=== PATIENT | female | born 1945 | race Caucasian/White ===

== ENCOUNTER 2024-07-23 21:29 | Inpatient (IN) | payer MEDICARE, MEDICAID, SELFPAY ==
[2024-07-23] VITALS (8 sets, daily range): BP systolic 95–105; BP diastolic 64–80; PULSE 134–173; RESP 22–39; TEMP 36.5; O2SAT 92–99
--- NOTE | 2024-07-23 21:46 | XR_ITS ---
Examination: AP chest single view TECHNIQUE: AP portable semiupright chest single view Exam date and time: July 23, 1999 2510 0 5:00 PM Comparison August 11, 2023 INDICATIONS: SOB today. FINDINGS: Significant pneumonia left base with left pleural fluid No significant cardiac enlargement Prominent osteopenia Pleural scarring at the apices IMPRESSION: Significant left base pneumonia
--- NOTE | 2024-07-23 22:05 | EDNOTE_ITS ---
ED SOB =RME/HPI General Chief Complaint: Shortness of Breath/Dyspnea Stated Complaint: LOW O2 STATS Time Seen by Provider: 07/23/24 22:14 Arrival date/time: 07/23/24 21:29 RME / HPI RME / HPI Narrative: Patient is a 79-year-old female with past medical history of hypertension, GI bleed secondary to [place] tear, GERD, alcohol use disorder, unspecified psych disorder was BIBA from [facility] to the ED for a chief com plaint of low oxygen saturation and worsening cough over last few days. Per EMS, patient was sent over after she was found to be satting at 88% room air. EMS notes the patient was recently diagnosed with a left pleural effusion and is not compliant with her oxygen therapy. For EMS patient was swatting and refusing vitals check. Per POLST, patient is a Full Code with resuscitative measures but selective treatment. CXR from [facility] on 07/17/2024 showed Ill defined opacity in the right lower lobe with associated effusion. The heart is mildly enlarged. Great vessels are within normal limits in size. No acute osseous abnormality. No significant pneumothorax seen. Patient was prescribed 7 day course of levofloxacin, currently on Day 6. On arrival to ED HR was recorded 190s on the monitor, EKG shows afib with RvR. Per facility patient is at baseline mental status. When asked of any complaints patient states I'm alright and denies pain. She reports mild shortness of breath. Denies cough, chest pain, fever, chills, sweats. Denies nausea, vomiting, diarrhea, or any other symptoms at this time. Denies smoking or drinking, last alcohol drink a few months ago. Related Data Previous Rx's ?Medication ?Instructions ?Recorded amlodipine 5 mg tablet 5 mg PO QDAY #30 tabs sennosides 8.6 mg capsule (senna) 8.6 mg PO BID PRN co nstipation #60 08/18/23 caps Allergies Allergy/AdvReac Type Severity Reaction Status Date / Time chlorpromazine AdvReac Mild SLURRED Verified 01/24/22 13:27 SPEECH Review of Systems Review of Systems Systems Reviewed: All systems reviewed, normal except as documented Past Medical History Past Medical History NEUROLOGIC: Negative Neurological Disorders CARDIAC: Negative Cardiac Disorders or Congestive Heart Failure RESPIRATORY: Negative Chronic Obstructive Pulmonary Disease (COPD) GASTROINTESTINAL: Negative Gastrointestinal Disorders GENITOURINARY: Negative Genitourinary Disorders or Renal Disease MUSCULOSKELETAL: Negative Musculoskeletal Disorders ENDOCRINE: Negative Diabetes Mellitus Type 1 or Diabetes Mellitus Type 2 HEMATOLOGIC: Negative Blood Disorders Social History SMOKING STATUS: Unknown if ever smoked SECOND HAND EXPOSURE: Yes Past Medical History Comments PMH COMMENT: Past Medical History: Hypertension, GI bleed secondary to [place] tear, GERD, alcohol use disorder, unspecified psych disorder Family History: Unknown family history Surgical History: Unknown surgical history Social History: Denies smoking or tobacco use, former alcohol use last drink several months ago, denies recreational drug use Current Medications: Metoprolol tartrate 25 mg BID, amlodipine 5 mg qday, buspirone 15 mg BID, levofloxacin 500 mg (07/18/2024-07/25/2024), acetaminophen 325 mg prn, sennosides 8.6 mg prn, milk of magnesia 30 ml prn, dulcolax 10 mg prn, enema prn, multivitamin qday (Source: [facility] medication list) Allergies: Chlorpromazine - slurred speech ED Exam Narrative Physical exam: Physical Exam General: Elderly thin woman. Awake and in mild distress. Limited responses and compliance to evaluation. HEENT: Normocephalic, atraumatic, mucous membranes moist. Angioma-like growths on the right eyelid. Heart: Tachycardic rate and irregularly irregular rhythm, no murmurs. Lungs: Lower lobe rhonchi L>R. Abdomen: Soft, nondistended, nontender, positive bowel sounds. ?No guarding or rebound tenderness. Neurologic: Alert and oriented x3, no gross neurological deficit, and patient able to move all 4 extremities. Extremities: No edema. Skin: No rash or ecchymoses. Course Course Course Narrative: 22:00 Patient seen at bedside and received report from EMS. HR on monitor 190s. Orders placed for IV insertion. EKG #1 shows atrial fibrillation with rapid ventricular response at a rate of 194. Diltiazem 15 mg IV x1 ordered. 22:45 Evaluation after diltiazem push. HR in the 140-150s. BP stable 105/76. Pt getting flu, covid, rsv swab. 23:07 COVID and flu swabs are negative. HR remains in the 140s, will start diltiazem drip at 5 mg/hr. 00:50 Rate still 140s, diltiazem drip increased to 10 mg/hr. 04:00 Rate is in the 110s. CTA shows no acute PEs per my read, pending official interpretation. Quality Measures none Orders Category Date Time Status Apply Pacer Pads NOW Care 07/23/24 22:07 Completed Bedside COVID-19 Antigen Test NOW Care 07/23/24 21:47 Active Bedside Influenza A&B Antigen Test NOW Care 07/23/24 21:47 Completed COVID-19 Screening Questionnaire NOW Care 07/24/24 04:[address] Screening NOW Care 07/24/24 02:54 Active Shop Teacher STAT Care 07/23/24 22:07 Active Continuous Pulse Oximetry STAT Care 07/23/24 22:07 Completed Decision to Admit X1 Care 07/24/24 04:16 Active EKG (ED ONLY) *Do not use* NOW Care 07/23/24 21:46 Completed Insert IV NOW Care 07/23/24 22:07 Active Strict Intake and Output Routine Care 07/23/24 22:[address] angio chest Stat Exams 07/24/24 02:53 Taken EKG (ED Only) Stat Exams 07/23/24 21:46 Ordered XR chest 1V portable Stat Exams 07/23/24 21:46 Completed B-Type Natriuretic Peptide Stat Lab 07/23/24 22:15 Completed Blood Culture (Lab) Stat Lab 07/24/24 00:00 Received CBC Stat Lab 07/23/24 22:15 Completed Comprehensive Metabolic Panel Stat Lab 07/23/24 22:15 Completed Magnesium Stat Lab 07/23/24 22:15 Completed Partial Thromboplastin Time Stat Lab 07/23/24 22:15 Completed Phosphorous Stat Lab 07/23/24 22:15 Completed Procalcitonin Stat Lab 07/23/24 22:15 Completed Prothrombin Time with INR Stat Lab 07/23/24 22:15 Completed RSV [Respiratory Syncytial Virus Ag] Stat Lab 07/23/24 23:17 Completed Troponin I Routine Lab 07/24/24 05:00 Ordered Troponin I Stat Lab 07/23/24 22:15 Completed Urinalysis Stat Lab 07/24/24 04:10 Completed DILTIAZEM in D5W 125 MG Med 07/23/24 22:57 Active 125 mg in 125 ml IV 5 mg/hr Diltiazem Inj [Cardizem Inj] Med 07/23/24 23:20 Discontinued 125 mg IV .STK-MED ONE Diltiazem Inj [Cardizem Inj] Med 07/23/24 22:07 Discontinued 15 mg IV X1 ONE Magnesium Sulfate 2 GM Ivpb [Magnesium Sulfate Ivpb] Med 07/24/24 01:04 Discontinued 2 gm in 50 ml IV X1 Potassium Chloride [K-Dur] Med 07/24/24 01:03 Discontinued 40 meq PO X1 ONE Sodium Chloride 0.9% 1000 ml [Ns] 1,000 ml Med 07/24/24 01:02 Discontinued IV 999 mls/hr cefTRIAXone/D5w 1gm IV premix [Rocephin/D5w 1gm IV Med 07/24/24 02:13 Disconti nued premix] 50 ml IV X1 Oxygen Delivery PRN RT 07/23/24 22:07 Active Reevaluation(s) Reevaluation #1: Improve heart rate to 129 Time: 05:43 Vital Signs Vital signs: Vital Signs Temperature 97.7 F 07/23/24 21:44 Pulse Rate 166 H 07/23/24 21:44 Respiratory Rate 22 H 07/23/24 21:44 Pulse Oximetry (%) 92 L 07/23/24 21:44 Oxygen Delivery Method Room Air 07/23/24 21:44 Shortness of Breath / Dyspnea MDM Narrative MDM Narrative:: CXR from [facility] on 07/17/2024 showed Ill defined opacity in the right lower lobe with associated effusion. The heart is mildly enlarged. Great vessels are within normal limits in size. No acute osseous abnormality. No significant pneumothorax seen. Patient was prescribed 7 day course of levofloxacin, currently on Day 6. Ordered CTA chest to rule out any PE and also visualize pulmonary pena in the setting of pleural effusion seen on CXR. Sepsis: Was called at 5:39 AM. On arrival patient has tachycardia, increased respiratory rate, however she has increased BNP with pleural effusion and likely early CHF. The patient is given some IV fluids here but not the full 30 mix/kg. Patient is given 1 L of IV fluids. Sepsis reevaluation: Patient heart rate is improved. Blood pressure improved to 129. Patient afebrile at 98.5 and 100% on room 5 L. Patient data External records reviewed:: [facility] previous records, EMS form and Jail records Clinical information provided by:: EMS Social determinants that could affect healthcare access:: housing (SNF patient) Patient has the following chronic illnesses:: GERD How is presenting disease/condition affected by chronic disease/condition?: uneffected by Evaluation data The following diagnostics were reviewed and interpreted by me:: lab results, radiology exam(s) and EKG tracing(s) Lab and/or radiology exams considered but not ordered:: none Interpretation Summary: CTA interpreted by me: No pulmonary embolism, moderate left and mild right pl eural effusion. Medications / Prescriptions Medications or Prescriptions considered but not ordered:: none Medication administrations:: Medication Administration History Acetaminophen (Acetaminophen 325 Mg Tablet) 650 mg PO Q6H PRN PRN Reason: Fever >101.5 Stop: 08/23/24 04:50 Acetaminophen (Acetaminophen 325 Mg Tablet) 650 mg PO Q6H PRN PRN Reason: PAIN SCALE 1-3 (mild Stop: 08/23/24 04:50 Albuterol/Ipratropium (Albuterol/Ipratropium (Duoneb) Rt Ester 3 Ml Nebu) 3 ml INH Q4HRRT JOSE Stop: 08/23/24 06:59 Buspirone HCl (Buspirone Hcl 5 Mg Tablet) 15 mg PO BID JOSE Stop: 08/23/24 08:59 Heparin Sodium (Porcine) (Heparin Sod Inj 5000 Unit/Ml Vial) 5,000 unit SC Q8HR JOSE Stop: 08/07/24 05:59 Diltiazem HCl (Diltiazem In D5w 125 Mg) 125 mg in 125 mls @ 5 mls/hr IV .Q24H JOSE Stop: 08/22/24 22:56 Last Infusion: 07/24/24 00:52 Dose: 10 mg/hr, 10 mls/hr Documented By: Admin: 07/23/24 23:37 Dose: 5 mg/hr, 5 mls/hr Documented By: GOSIA Comments: 125 mg diltiazem into 100cc d5 Piperacillin Sod/Tazobactam (Sod 4.5 gm/ Sodium Chloride) 100 mls @ 200 mls/hr IV Q6HR JOSE Stop: 07/31/24 05:00 Piperacillin Sod/Tazobactam (Sod 4.5 gm/ Sodium Chloride) 100 mls @ 200 mls/hr IV X1 ONE Stop: 07/24/24 05:44 Ondansetron HCl (Ondansetron Inj 2 Mg/Ml Inj 2 Ml) 4 mg IV Q6H PRN; Protocol PRN Reason: NAUSEA OR VOMITING Stop: 08/23/24 04:50 Pantoprazole Sodium (Pantoprazole Inj 40 Mg Vial) 40 mg IVP QDAY JOSE Stop: 08/23/24 08:59 Pharmacy Consult (Vancomycin Pharmacy To Dose 1 Each Each) 1 each IV QDAY JOSE Stop: 08/23/24 08:59 Sennosides (Senna Tablet) 1 tab PO QDAY JOSE; Protocol Stop: 08/23/24 08:59 Discontinued Medications Diltiazem HCl (Diltiazem Inj 5 Mg/Ml Vial 5 Ml) 15 mg IV X1 ONE Stop: 07/23/24 22:08 Last Admin: 07/23/24 22:26 Dose: 15 mg Documented By: LETI Diltiazem HCl (Diltiazem Inj 5 Mg/Ml Vial 25 Ml) Confirm Administered Dose 125 mg IV .STK-MED ONE Stop: 07/23/24 23:21 Last Admin: 07/24/24 00:18 Dose: Not Given Documented By: LETI Non-Admin Reason: Override Medication Sodium Chloride (Ns) 1,000 mls @ 999 mls/hr IV .Q1H1M ONE Stop: 07/24/24 02:02 Last Infusion: 07/24/24 02:30 Dose: Infused Documented By: Admin: 07/24/24 01:15 Dose: 999 mls/hr Documented By: KG Magnesium Sulfate (Magnesium Sulfate Ivpb) 2 gm in 50 mls @ 25 mls/hr IV X1 ONE Stop: 07/24/24 03:03 Last Infusion: 07/24/24 03:50 Dose: Infused Documented By: Admin: 07/24/24 01:17 Dose: 25 mls/hr Documented By: KG Ceftriaxone Sodium/Dextrose (Rocephin/D5w 1gm Iv Premix) 50 mls @ 100 mls/hr IV X1 ONE Stop: 07/24/24 02:42 Last Infusion: 07/24/24 03:30 Dose: Infused Documented By: Admin: 07/24/24 02:55 Dose: 100 mls/hr Documented By: GOSIA Potassium Chloride (Potassium Chloride 20 Meq Tabcr) 40 meq PO X1 ONE Stop: 07/24/24 01:04 Last Admin: 07/24/24 01:14 Dose: 40 meq Documented By: KG Sodium Chloride (Sodium Chloride Rt 10% 15 Ml Nebu) 5 ml INH X1 ONE Stop: 07/24/24 04:57 Last Admin: 07/24/24 05:18 Dose: 5 ml Documented By: PAR ^ Consultations Consultation(s) initiated? (list below): No Consultation #1 (Physician, Specialty, Details): Internal resident , reviewed labs, management, workup and agrees to admit the patient. Diagnosis Shortness of Breath Differential Diagnosis: community acquired pneumonia Most likely diagnosis given after review of the tests above:: afib with RvR in the setting of pulmonary disease, community acquired pneumonia, left pleural effusion Admission Indicated Admission indicated?: indicated Explain why admission is indicated or not indicated:: Afib with RvR and left pleural effusion secondary to pneumonia Admission Request Was there a request for admission?: Yes Admission Attestation Admission request attestation: Discussed case with [] from Hospitalist service regarding admission. Discussed patients ED course, exam findings, labs, and radiology results. The Hospitalist [agrees,declines] to accept the patient for admission. Disposition Plan Disposition Plan: Admit Critical Care Time Critical Care Time Total Critical Care Time (min.): 45 Attestation: This patient required the highest level of my preparedness for sudden and emergent intervention. I provided critical care services, which included ordering, reviewing, and interpreting of laboratory studies in real time. Determining immediate treatments, planning for future treatments and observing response to therapy. Further diagnostic tests and treatments were made based on laboratory studies and response to therapy. I coordinated care with various consultants. This critical care time is separate from any other billable procedures or interventions. Discharge Plan Plan Patient Disposition: Admit Acute Care w/in Hospital Patient condition on transfer: Stable Problem List Clinical Impression: Community acquired pneumonia, Pleural effusion on left, Atrial fibrillation with RVR, Sepsis Attestation MD Attestation I was present for the history and physical exam and management with plan with the resident. Labs and radiographs are reviewed. Patient did meet criteria for sepsis secondary to elevated white count, heart rate elevation and increased respiratory rate. Procalcitonin is negative. Will add on lactic acid. Otherwise urinalysis is negative.
--- NOTE | 2024-07-23 22:06 | PD.EDRME ---
Rapid Medical Screening Exam E Arrival date/time: 07/23/24 21:29 79-year-old female with a history of alcohol use disorder and GI bleeds presents to the emergency room with a chief complaint of hypoxia, and generalized weakness. Per EMS the patient was 86% on room air at her facility. I have greeted and performed a focused initial assessment of this patient. A comprehensive ED assessment and evaluation of the patient, analysis of all test results, and completion of the medical decision making process will be conducted by additional ED providers. Chief Complaint: Shortness of Breath/Dyspnea Time Seen by Provider: 07/23/24 22:14 Vital signs: Vital Signs Temperature 97.7 F 07/23/24 21:44 Pulse Rate 166 H 07/23/24 21:44 Respiratory Rate 22 H 07/23/24 21:44 Pulse Oximetry (%) 92 L 07/23/24 21:44 Oxygen Delivery Method Room Air 07/23/24 21:44 Vital signs reviewed by provider: Yes
[2024-07-23] MEDS: DILTIAZEM INJ 5 MG/ML VIAL 5 ML 15 MG IV (22:26)
[2024-07-23 22:33] LABS: Basophils # (Auto) 0.1 Thou/mm3 (0.0-0.2); Basophils % (Auto) 0 % (0-2.5); Eosinophils % (Auto) 0 % (0-10); Hematocrit 47.3 % (36.0-46.0); Hemoglobin 16.3 g/dL (12.0-16.0); Immature Granulocytes % (Auto) 1 % (0-0); Immature Granulocytes Auto 0.16 Thou/mm3 (0.00-0.00); Lymphocytes # (Auto) 1.9 Thou/mm3 (1.0-4.8); Lymphocytes % (Auto) 12 % (10-50); Mean Corpuscular HGB Conc 34.5 g/dl (31.0-37.0); Mean Corpuscular Hemoglobin 29.7 pg (25.0-35.0); Mean Corpuscular Volume 86 fL (80-100); Monocytes # (Auto) 1.3 Thou/mm3 (0.0-0.8); Monocytes % (Auto) 8 % (0-12); Neutrophils # (Auto) 12.3 Thou/mm3 (1.8-7.7); Neutrophils % (Auto) 78 % (37-80); Nucleated Red Blood Cell % 0 /100 WBC (0); Platelet Count 460 Thou/mm3 (140-440); RDW Standard Deviation 41.5 fL (36.4-46.3); Red Blood Count 5.49 Miln/mm3 (4.00-5.20); White Blood Count 15.8 Thou/mm3 (3.6-11.0)
[2024-07-23 22:44] LABS: B-Type Natriuretic Peptide 371 pg/mL (0-100)
[2024-07-23 22:58] LABS: INR 1.2 (0.9-1.3); Partial Thromboplastin Time 26.4 Seconds (22.0-36.0); Prothrombin Time 13.2 Seconds (9.0-12.2)
[2024-07-23 23:04] LABS: Alanine Aminotransferase 24 U/L (10-49); Albumin, Serum 4.4 gm/dL (3.4-4.8); Albumin/Globulin Ratio 1.4 (1.2-2.2); Alkaline Phosphatase 90 U/L (46-116); Anion Gap 12 (7-16); Aspartate Amino Transferase 38 U/L (0-34); BUN/Creatinine Ratio 23 Ratio (12-20); Bilirubin,Total 0.9 mg/dL (0.3-1.2); Blood Urea Nitrogen 18 mg/dL (9-23); Calcium 9.9 mg/dL (8.3-10.6); Calcium (Corrected) 9.9 mg/dL (8.5-10.1); Carbon Dioxide 24.8 mMol/L (20.0-31.0); Chloride 102 mMol/L (98-107); Creatinine (Component) 0.8 mg/dL (0.6-1.3); Globulin 3.1 gm/dL (2.3-3.5); Glucose 196 mg/dL (74-106); Magnesium 1.8 mg/dL (1.6-2.6); Osmolality,Calculated 284 (275-295); Phosphorous 2.8 mg/dL (2.4-5.1); Potassium 3.4 mMol/L (3.4-5.1); Sodium 139 mMol/L (136-145); Total Protein 7.5 gm/dL (5.7-8.2); eGFR > 60 See Note
[2024-07-23 23:10] LABS: Troponin I 0.768 ng/mL (0.0-0.045)
[2024-07-23 23:32] LABS: Procalcitonin 0.06 ng/ml (0.0-0.49)
[2024-07-23] MEDS: DILTIAZEM in D5W 125 MG 125 MG/125 ML BAG IV (23:37)
[2024-07-24] VITALS (18 sets, daily range): BP systolic 93–125; BP diastolic 61–86; PULSE 84–142; RESP 18–97; TEMP 36.2–36.9; O2SAT 92–100; BMI 18.5; BMI 23.8
[2024-07-24 00:26] LABS: Respiratory Syncytial Virus Ag Negative (Negative)
[2024-07-24] MEDS: POTASSIUM CHLORIDE 20 mEq TABCR 40 MEQ PO (01:14)
[2024-07-24] MEDS: SODIUM CHLORIDE 0.9% 1000 ML 1,000 ML 999 ML IV (01:15)
[2024-07-24] MEDS: Magnesium Sulfate 2 GM Ivpb 2 GM/50 ML BAG IV (01:17)
--- NOTE | 2024-07-24 02:53 | XR_ITS ---
Examination: CTA chest with intravenous contrast 2-D reconstructions 3-D reconstructions, vascular Date and time of exam: July 24, 2024 at 0338 hours INDICATIONS: Onset hypoxia, tachycardia, tachypnea chest pain today, clinical diagnosis pulmonary embolus CTDI: vol (mGy) 18.48 DLP: (mGycm) 345 Technique: Multiple axial sections of the thorax have been obtained. 3 mm slice thickness, from below the hemidiaphragms to above the apices of the lungs. Mediastinal and lung density settings have been obtained. 2-D sagittal and coronal reconstructions. 3-D angiographic renderings, 3-D volume renderings, 3D post processing, vascular maximum intensity projections obtained. Contrast administered is 100 cc Isovue-370 intravenous. Low dose protocols were performed. One or more of the following dose reduction techniques were used; automated exposure control, adjustment of the mA and/or KV according to patient size, use of iterative reconstruction technique. Findings: Thoracic aortic calcification with no aneurysmal dilatation Pulmonary artery segments are not enlarged No pulmonary artery emboli Significant vascular congestion Mild pneumonia left base with atelectasis Moderate left and mild right pleural fluid Calcified granuloma in the right middle lobe Mild to moderate enlargement cardiac contour Liver is irregular in contour Splenic calcifications No pancreatic mass IMPRESSION: Negative for pulmonary artery emboli. Mild heart failure Mild pneumonia left base Moderate left mild right pleural fluid
[2024-07-24] MEDS: cefTRIAXone/D5w 1gm IV premix 50 ML IV (02:55)
--- NOTE | 2024-07-24 04:01 | PC.NURSE ---
Pt taken and brought back from ct
[2024-07-24 04:25] LABS: Collection Type, Urine Clean Catch
[2024-07-24 04:33] LABS: Bilirubin,Urine Negative (Negative); Blood,Urine Negative (Negative); Clarity,Urine Clear (Clear/Hazy); Color,Urine Yellow (Lt Yel-Yel); Glucose, Urine Negative (Negative); Hyaline Casts,Urine < 1 /hpf (0-1); Ketones,Urine Negative (Negative); Leukocyte Esterase,Urine Negative (Negative); Nitrite,Urine Negative (Negative); Protein,Urine Trace (Neg - Trace); RBC,Urine < 1 /hpf (0-3); Specific Gravity,Urine 1.027 (1.001-1.035); Squamous Epithelial Cell,Urine < 1 /hpf (0-5); Urobilinogen,Urine Negative mg/dL (0.0-1.0); WBC,Urine 1 /hpf (0-5)
--- NOTE | 2024-07-24 04:46 | PRELIM_ITS ---
CT angiogram of the chest with intravenous contrast (axial sections with sagittal and coronal reformats) July 24, 2024 at 0338 hours Clinical History: Hypoxic, tachycardia, tachypnea starting today Technique:Helical axial sections with sagittal and coronal reformats of the chest were obtained with intravenous contrast. Iterative reconstruction technique was employed to reduce patient radiation exposure. 3D/MIP reconstructed images were also provided. Comparison: No prior study is available for comparison. Radiation Dose: Total examination DLP 345 mGy x cm. Findings: There is no filling defect within the pulmonary artery divisions to suggest pulmonary thromboembolism. There are enlarged mediastinal lymph nodes, measuring up to 14 mm. The thoracic aorta demonstrates atheromatous calcification without evidence of aneurysm. Coronary artery calcification is noted. There is mild cardiomegaly. There is no pericardial effusion. There is biapical pleuroparenchymal scarring.Fibrocalcific scarring is seen in the lung apex. Emphysematous changes are noted in the lungs. There is a calcified nodule measuring 12 mm in the anterior basal segment of the right lower lobe. There are moderate bilateral pleural effusions, larger on the left. There is compressive atelectasis/consolidation of the bilateral lung bases. No evidence of pneumothorax. Degenerative changes are identified in the spine. There is a chronic-appearing compression deformity of T8 vertebra. Calcific densities are seen in the spleen, likely representing calcified granulomas. A small hiatal hernia is present. The rest of the visualized upper abdominal viscera are unremarkable. Impression: 1. No CT evidence of pulmonary thromboembolism. 2. Mild cardiomegaly with features of congestive cardiac failure causing bilateral pleural effusions. 3. Other findings as described above. Report Electronically Signed By: Holly Santos 07/24/2024 4:46:36 AM [EST]
--- NOTE | 2024-07-24 04:58 | ECHO_ITS ---
Transthoracic Echo Report Ht (in): 59 Wt (lb): 118 Exam Location: Echo Lab Status: Inpatient Adapted Physical Education Specialist: Elsie Denny Indications: Procedure Performed: BP: 119 / 83 HR: 84 Technical Quality: Technically difficult study MEASUREMENTS (Male / Female) Normal Values 2D ECHO LV Diastolic Diameter PLAX 3.5 cm 4.2 - 5.9 / 3.9 - 5.3 cm LV Systolic Diameter PLAX 3.0 cm IVS Diastolic Thickness 0.6 cm 0.6 - 1.0 / 0.6 - 0.9 cm LVPW Diastolic Thickness 0.8 cm 0.6 - 1.0 / 0.6 - 0.9 cm LV Relative Wall Thickness 0.4 LVOT Diameter 1.6 cm LA Volume Index 35.2 cm?/m? 16 - 28 cm?/m? M-MODE Aortic Root Diameter MM 2.2 cm LA Systolic Diameter MM 2.8 cm LA Ao Ratio MM 1.3 AV Cusp Separation MM 1.1 cm DOPPLER AV Peak Velocity 116.0 cm/s AV Peak Gradient 5.4 mmHg AV Mean Gradient 3.0 mmHg AV Velocity Time Integral 18.9 cm AI Peak Velocity 341.0 cm/s AI Peak Gradient 46.5 mmHg AI Pressure Half Time 991.0 ms LVOT Peak Velocity 99.0 cm/s LVOT Peak Gradient 3.9 mmHg LVOT Velocity Time Integral 14.8 cm LVOT Cardiac Index 1662.8 cm?/min?m? AV Area Cont Eq vti 1.6 cm? AV Area Cont Eq pk 1.7 cm? MV Area PHT 5.9 cm? MR Peak Velocity 448.0 cm/s MR Peak Gradient 80.3 mmHg Mitral E Point Velocity 92.6 cm/s TR Peak Velocity 217.3 cm/s TR Peak Gradient 18.9 mmHg PV Peak Velocity 56.2 cm/s PV Peak Gradient 1.3 mmHg FINDINGS Left Ventricle Normal left ventricular size and wall thickness. The ejection fraction is visually estimated at 30 %. Global left ventricular systolic function is moderately decreased. Right Ventricle The right ventricle is normal in size. The right ventricular systolic function is severely decreased. The estimated right ventricular systolic pressure, 37 mmHg. RAP 15. Left Atrium The left atrium is normal by two-dimensional, color flow and Doppler imaging with no structural abnormalities, no thrombus formation present. Right Atrium The right atrial cavity size is moderately increased. Atrial Septum The interatrial septum appears normal with no evidence of a shunt. Aorta The aorta is normal by two-dimensional, color flow and Doppler interrogation. Mitral Valve The mitral valve is normal by two-dimensional, color flow and Doppler interrogation. There moderate-to- severe mitral regurgitation. Aortic Valve [id number] aortic valve regurgitation. Tricuspid Valve The tricuspid valve is normal by two-dimensional, color flow and Doppler interrogation. There is mild to moderate tricuspid valve regurgitation. Pulmonic Valve The pulmonic valve is not well visualized. There is no significant pulmonic valve regurgitation. Vessels The pulmonary artery appears normal. The inferior vena cava pulmonary and hepatic veins appear normal. Pericardium The pericardium is normal by two-dimensional imaging. There is no significant pericardial effusion. CONCLUSIONS Indication: A Fib RVR Normal LV size and wall thickness.Severely decreased LV function. Estimated EF 25-30 %. Diastolic dysfunction present but cannot grade due to Afib RV is normal in size. RV systolic function is moderately decreased. Estimated RVSP, 37 mmHg. RAP 15. Mild AV sclerosis without stenosis. Mild AI. Moderate eccentroc MR and moderate eccentric TR. Mild biatrial dilation. Leon Jeter (Electronically Signed) Final Date: 25 July 2024 07:50
--- NOTE | 2024-07-24 05:16 | PD.RESHP ---
Documentation for date of: 07/24/24 HPI History of Present Illness Chief complaint: Shortness of breath, dyspnea History of present illness: Mr. Ryder is a 79-year-old female with past medical history of hypertension, GI bleed secondary to [place] tear, GERD, alcohol use disorder, unspecified psych disorder who was BIBA from [facility] to the [facility] ED on 07/23/2024 for a chief complaint of low oxygen saturation and worsening cough over last few days. Per EMS, patient was sent over after she was found to have SpO2 of 88% on room air. Patient seen at bedside, patient alert and oriented x 3, is a poor historian and is unable to provide history most history obtained from patient's chart and medical records. Patient had a chest x-ray recently done at [facility] which showed suspected pneumonia and associated effusion, was started on levofloxacin 7-day course currently on day 6, per records patient noncompliant with oxygen therapy and refuses oxygen mask. In ED on presentation patient's heart rate was in 190s, EKG showed atrial fibrillation with RVR. Per patient's chart review, EKG in 2021 shows A-fib. Per patient's facility patient is at baseline mental status, on asking further questions patient states that she is doing all right, denies any acute pain. Currently patient had elevated respiratory rate and tachypneic, refusing oxygen mask, endorsed the importance of oxygen and patient agreed to be compliant. Patient denies any recent alcohol use, last alcohol drink was a few months ago per patient. ED Course: ED Vitals: On presentation in ED BP 104/79, P166, RR 22, temp 97.7, O2 sat 92 ED Labs: ED labs on presentation significant for WBC 15.8, RBC 5.49, hemoglobin 16.3, hematocrit 47.3, platelet 460, neutrophil 12.3 PT 13.2 glucose 196 AST 38 troponin 0.768, BNP 371. UA unremarkable. Patient noted to be flu negative, RSV negative and COVID-negative in ED ED Imaging: Chest x-ray in ED positive for significant left base pneumonia, CTA chest pending official read, preliminary shows no PE noted, emphysematous changes in the lungs, moderate bilateral pleural effusion larger on left, mild cardiomegaly with features of congestive heart failure ED Treatment:In ED patient received 15 mg IV push of Dilt and was started on diltiazem drip, given 40 mEq of potassium, 2 g mag, 1 L bolus NaCl and IV ceftriaxone Patient will be admitted to hospital for further workup due to underlying acute hypoxic respiratory failure secondary to suspected healthcare acquired pneumonia, parapneumonic effusion, sepsis and atrial fibrillation with RVR Review of Systems Review of Systems Systems Reviewed: All systems reviewed, normal except as documented Past Medical History Past Medical History NEUROLOGIC: Negative Neurological Disorders CARDIAC: Negative Cardiac Disorders or Congestive Heart Failure RESPIRATORY: Negative Chronic Obstructive Pulmonary Disease (COPD) GASTROINTESTINAL: Negative Gastrointestinal Disorders GENITOURINARY: Negative Genitourinary Disorders or Renal Disease MUSCULOSKELETAL: Negative Musculoskeletal Disorders ENDOCRINE: Negative Diabetes Mellitus Type 1 or Diabetes Mellitus Type 2 HEMATOLOGIC: Negative Blood Disorders Social History SMOKING STATUS: Unknown if ever smoked SECOND HAND EXPOSURE: Yes Past Medical History Comments PMH COMMENT: Past Medical History: Hypertension, GI bleed secondary to D[place]ia-[place] tear, GERD, alcohol use disorder, unspecified psych disorder Family History: Unknown family history Surgical History: Unknown surgical history Social History: Denies smoking or tobacco use, former alcohol use last drink several months ago, denies recreational drug use Current Medications: Metoprolol tartrate 25 mg BID, amlodipine 5 mg qday, buspirone 15 mg BID, levofloxacin 500 mg (07/18/2024-07/25/2024), acetaminophen 325 mg prn, sennosides 8.6 mg prn, milk of magnesia 30 ml prn, dulcolax 10 mg prn, enema prn, multivitamin qday (Source: [facility] medication list) Allergies: Chlorpromazine - slurred speech Exam Vital Signs Temp Pulse Resp BP Pulse Ox O2 Del Method O2 Flow Rate 98.5 F 115 H 38 H 125/69 92 L Blow-by 10 07/24/24 02:00 07/24/24 02:00 07/24/24 01:00 07/24/24 02:00 07/24/24 02:00 07/24/24 01:00 07/24/24 01:00 Narrative Exam Physical Exam General: Elderly thin woman. Awake and in mild distress. Limited responses and compliance to evaluation. HEENT: Normocephalic, atraumatic, mucous membranes moist. Angioma-like growths on the right eyelid. Heart: Tachycardic rate and irregularly irregular rhythm, no murmurs. Lungs: Bilateral lower lobe crackles L>R. Abdomen: Soft, nondistended, nontender, positive bowel sounds. ?No guarding or rebound tenderness. Neurologic: Alert and oriented x3, no gross neurological deficit, and patient able to move all 4 extremities. Extremities: No edema. Skin: No rash or ecchymoses. Results: Labs 07/24/24 05:05 07/23/24 22:15 Labs: Short CBC 07/23/24 Range/Units 22:15 WBC 15.8 H (3.6-11.0) Thou/mm3 Hgb 16.3 H (12.0-16.0) g/dL Hct 47.3 H (36.0-46.0) % Plt Count 460 H (140-440) Thou/mm3 BMP 07/23/24 22:15 Sodium 139 Potassium 3.4 Chloride 102 Carbon Dioxide 24.8 BUN 18 Creatinine 0.8 Glucose 196 H Calcium 9.9 Cardiac Enzymes 07/23/24 Range/Units 22:15 Troponin I 0.768 H* (0.0-0.045) ng/mL Liver Function 07/23/24 Range/Units 22:15 Total Bilirubin 0.9 (0.3-1.2) mg/dL AST 38 H (0-34) U/L ALT 24 (10-49) U/L Alkaline Phosphatase 90 (46-116) U/L Albumin 4.4 (3.4-4.8) gm/dL Urine 07/24/24 Range/Units 04:10 Urine Color Yellow (Lt Yel-Yel) Urine Clarity Clear (Clear/Hazy) Urine pH 5.0 (5.0-7.0) Ur Specific Coward 1.027 (1.001-1.035) Urine Protein Trace (Neg - Trace) Urine Glucose (UA) Negative (Negative) Quality Measures Quality Measures none Advance care planning discussed with:: patient Medications Home Medications and Allergies Allergies Allergy/AdvReac Type Severity Reaction Status Date / Time chlorpromazine AdvReac Mild SLURRED Verified 01/24/22 13:27 SPEECH Visit Medications Acetaminophen (Acetaminophen 325 Mg Tablet) 650 mg PO Q6H PRN PRN Reason: Fever >101.5 Stop: 08/23/24 04:50 Acetaminophen (Acetaminophen 325 Mg Tablet) 650 mg PO Q6H PRN PRN Reason: PAIN SCALE 1-3 (mild Stop: 08/23/24 04:50 Albuterol/Ipratropium (Albuterol/Ipratropium (Duoneb) Rt Ester 3 Ml Nebu) 3 ml INH Q4HRRT [facility] Stop: 08/23/24 06:59 Buspirone HCl (Buspirone Hcl 5 Mg Tablet) 15 mg PO BID [facility] Stop: 08/23/24 08:59 Heparin Sodium (Porcine) (Heparin Sod Inj 5000 Unit/Ml Vial) 5,000 unit SC Q8HR JOSE Stop: 08/07/24 05:59 Diltiazem HCl (Diltiazem In D5w 125 Mg) 125 mg in 125 mls @ 5 mls/hr IV .Q24H [facility] Stop: 08/22/24 22:56 Last Infusion: 07/24/24 00:52 Dose: 10 mg/hr, 10 mls/hr Piperacillin Sod/Tazobactam (Sod 4.5 gm/ Sodium Chloride) 100 mls @ 200 mls/hr IV Q6HR JOSE Stop: 07/31/24 05:00 Piperacillin Sod/Tazobactam (Sod 4.5 gm/ Sodium Chloride) 100 mls @ 200 mls/hr IV X1 ONE Stop: 07/24/24 05:44 Ondansetron HCl (Ondansetron Inj 2 Mg/Ml Inj 2 Ml) 4 mg IV Q6H PRN; Protocol PRN Reason: NAUSEA OR VOMITING Stop: 08/23/24 04:50 Pantoprazole Sodium (Pantoprazole Inj 40 Mg Vial) 40 mg IVP QDAY [facility] Stop: 08/23/24 08:59 Pharmacy Consult (Vancomycin Pharmacy To Dose 1 Each Each) 1 each IV QDAY [facility] Stop: 08/23/24 08:59 Sennosides (Senna Tablet) 1 tab PO QDAY [facility]; Protocol Stop: 08/23/24 08:59 Discontinued Medications Diltiazem HCl (Diltiazem Inj 5 Mg/Ml Vial 5 Ml) 15 mg IV X1 ONE Stop: 07/23/24 22:08 Last Admin: 07/23/24 22:26 Dose: 15 mg Sodium Chloride (Ns) 1,000 mls @ 999 mls/hr IV .Q1H1M ONE Stop: 07/24/24 02:02 Last Infusion: 07/24/24 02:30 Dose: Infused Magnesium Sulfate (Magnesium Sulfate Ivpb) 2 gm in 50 mls @ 25 mls/hr IV X1 ONE Stop: 07/24/24 03:03 Last Infusion: 07/24/24 03:50 Dose: Infused Ceftriaxone Sodium/Dextrose (Rocephin/D5w 1gm Iv Premix) 50 mls @ 100 mls/hr IV X1 ONE Stop: 07/24/24 02:42 Last Infusion: 07/24/24 03:30 Dose: Infused Potassium Chloride (Potassium Chloride 20 Meq Tabcr) 40 meq PO X1 ONE Stop: 07/24/24 01:04 Last Admin: 07/24/24 01:14 Dose: 40 meq Sodium Chloride (Sodium Chloride Rt 10% 15 Ml Nebu) 5 ml INH X1 ONE Stop: 07/24/24 04:57 Assessment & Plan Plan Assessment and Plan: Summary: Mr. Ryder is a 79-year-old female with past medical history of hypertension, GI bleed secondary to [place] tear, GERD, alcohol use disorder, unspecified psych disorder who was BIBA from [facility] to the [facility] ED on 07/23/2024 for a chief complaint of low oxygen saturation and worsening cough over last few days. Patient will be admitted to hospital for further workup due to underlying acute hypoxic respiratory failure secondary to suspected healthcare acquired pneumonia, parapneumonic effusion, sepsis and atrial fibrillation with RVR. #Acute hypoxic respiratory failure #Complicated healthcare acquired pneumonia #Bilateral parapneumonic effusion, suspicion of empyema #Sepsis secondary to pneumonia, SIRS +3/4, leukocytosis Patient was initially diagnosed with pneumonia, parapneumonic effusion and [facility], was started on oral levofloxacin, completed 6 out of 7-day course with worsening symptoms and hypoxemia was eventually sent to ER via EMS, patient SpO2 88% on room air, noncompliant with oxygen therapy. Patient has cough and shortness of breath, chest x-ray significant for left base pneumonia, preliminary CTA negative for PE shows bilateral parapneumonic effusion, cardiomegaly and concern of CHF. Curb 65 2 points, moderate risk 6.8% 30-day mortality group, PSI/port score 117 points risk class IV 8.2 to 9.3% mortality. Flu, COVID, RSV negative Plan: -Started on IV Zosyn and vancomycin (07/24- -DuoNeb treatment as needed -ordered MRSA nasal screen, sputum culture, cocci serology -Follow-up blood culture -Patient received 1 L NS in ED, will hold more fluids due to concern of CHF -IR to place chest tube/thoracentesis due to concern of empyema -Ordered pleural fluid studies LDH, protein, staining and culture #Atrial fibrillation with RVR #Cardiomegaly, concern of CHF On presentation patient's heart rate 190, EKG significant for A-fib with RVR no reported history of A-fib, EKG from 2021 shows atrial fibrillation. Patient started on diltiazem drip in ED. [id number] score 4 points, BNP 371 Plan: -Continue IV diltiazem drip -We will hold off on anticoagulation in anticipation of chest tube placement, Consider starting patient on DOAC after the procedure -Consulted cardiology, appreciate recommendations -Strict intake and output, daily weight, fluid restriction 1500 cc -Will hold diuretics for now, clinically patient not in CHF exacerbation -Ordered TTE -Follow TSH, A1c and lipid panel -Keep potassium more than 4, magnesium more than 2 #Elevated troponin #NSTEMI type I versus type II, demand ischemia Patient had elevated troponin of 0.768 on presentation, likely secondary to demand ischemia, patient denies any chest pain, EKG significant for A-fib with RVR Plan: -Monitor for chest pain -Trend troponin every 6 hours #Hypertension Patient has history of hypertension, on amlodipine and metoprolol tartrate at home -Currently on diltiazem drip, consider resuming antihypertensives as needed #Polycythemia #Thrombocytosis Hemoglobin 16.3, RBC 5.49, platelet 460 on presentation, likely secondary to dehydration Monitor CBC in a.m. #Hyperglycemia Glucose 196 on labs, follow hemoglobin A1c in a.m. #Mild transaminitis AST 38 on presentation, monitor CMP in a.m. #Unspecified psych disorder, ? Anxiety Patient on buspirone 15 mg twice daily at home, resumed home medications. DVT prophylaxis: Heparin every 8 hours GI prophylaxis: IV Protonix Diet: Dysphagia 3, cardiac, fluid restriction 1500 cc. Refer to speech therapy Lines: Peripheral IV Code status: Per POLST, patient is a Full Code with resuscitative measures but selective treatment. Case discussed with Attending Dr. Anderson. Soledad Jacobsen PGY1 Disclaimer: This note was dictated by speech recognition. Minor errors in pets salesperson may be present due to voice recognition software. Attending Provider Attestation/Addendum I attest that I was physically present for the evaluation, physical examination, lab and imaging review of the patient with the residents. I discussed the case with the residents and agree with the findings and plans of care as documented above. Iwona Anderson MD
[2024-07-24] MEDS: SODIUM CHLORIDE RT 10% 15 ML NEBU 5 ML INH (05:18)
--- NOTE | 2024-07-24 05:35 | PC.RT ---
Sputum Induction attempted, but Pt was unable to expectorate specimen. No SPUTUM Collected
[2024-07-24 05:56] LABS: Basophils # (Auto) 0.1 Thou/mm3 (0.0-0.2); Basophils % (Auto) 1 % (0-2.5); Eosinophils % (Auto) 0 % (0-10); Hematocrit 38.3 % (36.0-46.0); Hemoglobin 13.1 g/dL (12.0-16.0); Immature Granulocytes % (Auto) 1 % (0-0); Immature Granulocytes Auto 0.17 Thou/mm3 (0.00-0.00); Lymphocytes # (Auto) 1.8 Thou/mm3 (1.0-4.8); Lymphocytes % (Auto) 12 % (10-50); Mean Corpuscular HGB Conc 34.2 g/dl (31.0-37.0); Mean Corpuscular Hemoglobin 29.8 pg (25.0-35.0); Mean Corpuscular Volume 87 fL (80-100); Monocytes # (Auto) 1.5 Thou/mm3 (0.0-0.8); Monocytes % (Auto) 10 % (0-12); Neutrophils # (Auto) 11.2 Thou/mm3 (1.8-7.7); Neutrophils % (Auto) 76 % (37-80); Nucleated Red Blood Cell % 0 /100 WBC (0); Platelet Count 379 Thou/mm3 (140-440); RDW Standard Deviation 41.8 fL (36.4-46.3); White Blood Count 14.7 Thou/mm3 (3.6-11.0)
[2024-07-24] MEDS: PIPER/TAZO INJ 4.5 GM in SODIUM CHLORIDE 0.9% (P) 100 ML IV (06:35)
[2024-07-24] MEDS: HEPARIN SOD INJ 5000 UNIT/ML VIAL SC ×2 (06:35→13:45)
--- NOTE | 2024-07-24 06:45 | PC.NURSE ---
Pt resting quietly. HR 100 afib.
[2024-07-24 06:46] LABS: Glucose Estimated Average 108 mg/dL (80-131); Hemoglobin A1C 5.4 % Hgb (4.8-6.0)
[2024-07-24 07:09] LABS: Alanine Aminotransferase 13 U/L (10-49); Albumin, Serum 3.4 gm/dL (3.4-4.8); Albumin/Globulin Ratio 1.3 (1.2-2.2); Alkaline Phosphatase 70 U/L (46-116); Anion Gap 9 (7-16); Aspartate Amino Transferase 33 U/L (0-34); BUN/Creatinine Ratio 23 Ratio (12-20); Bilirubin,Total 0.4 mg/dL (0.3-1.2); Blood Urea Nitrogen 14 mg/dL (9-23); Calcium 8.4 mg/dL (8.3-10.6); Calcium (Corrected) 8.9 mg/dL (8.5-10.1); Carbon Dioxide 24.5 mMol/L (20.0-31.0); Chloride 105 mMol/L (98-107); Creatinine (Component) 0.6 mg/dL (0.6-1.3); Estimated Creatinine Clearance 53.4 mL/min (>60); Free T4 (Free Thyroxine) 1.48 ng/dL (0.89-1.76); Globulin 2.6 gm/dL (2.3-3.5); Glucose 118 mg/dL (74-106); Magnesium 2.7 mg/dL (1.6-2.6); Osmolality,Calculated 277 (275-295); Potassium 4.3 mMol/L (3.4-5.1); Sodium 138 mMol/L (136-145); eGFR > 60 See Note
[2024-07-24] MEDS: VANCOMYCIN/NS 1 GM IVPB 200 ML IV (07:14)
[2024-07-24 07:22] LABS: Cardiac Risk Estimate 3.4 RATIO (3.7-5.6); Cholesterol 134 mg/dL (132-200); HDL Cholesterol 39 mg/dL (40-60); LDL Cholesterol,Calculated 77 mg/dL (0-130); Triglycerides 89 mg/dL (30-150)
[2024-07-24] MEDS: ALBUTEROL/IPRATROPIUM (Duoneb) RT SOL 3 ML NEBU INH ×4 (08:17→22:50)
[2024-07-24] MEDS: PANTOPRAZOLE INJ 40 MG VIAL IVP (10:30)
--- NOTE | 2024-07-24 10:30 | ESCONSULT_ITS ---
<Statement entered by Leon Jeter MD - 07/24/24 19:31> I have personally seen and examined the patient separately on the above date of service and discussed the plan of care with the resident. I reviewed the resident Dr. Desire Cruz consultation note and agree with the resident findings and plan in the note above and have also edited the documentation to reflect my findings and plan. A 79-year-old female who resident of [facility] with a past medical history of essential hypertension, paroxysmal atrial fibrillation noted on EKG in 2021, history of GI bleed secondary to Dahlia-Obregon tear, history of alcohol use disorder, ex-smoker as per documentation but patient denies, GERD and unspecified psych disorder was brought into the emergency department for further evaluation of hypoxia and low saturations and worsening cough over the last few days. Patient was found to have acute respiratory failure secondary to possible Pneumonia along with a parapneumonic effusion and the suspicion of empyema. Patient was noted to be in atrial fibrillation with RVR on admission with a heart rate of around 150 bpm -180 bpm. EKG did show atrial fibrillation with RVR but no evidence of any acute ST-T changes. Initial vitals in the emergency department showed a blood pressure of 104/70 mmHg, heart rate of 1 6 6/min respirate rate of 22, temp of 97.7, saturation of 92% on oxygen by nasal cannula. WBC elevated 15 and 8 with left shift and hemoglobin 16.3 platelets 460, glucose 196, BNP 371 troponin was 0.768. UA was negative flu negative RSV negative. Chest x-ray showed significant left base pneumonia and CTA chest was also performed which showed no evidence of any pulmonary embolism but showed left base pneumonia, mild heart failure and moderate left and mild right pleural effusions. After patient was diagnosed with pneumonia at [facility] and patient was on levofloxacin for 7 days. Denies any kind of chest pain chest pressure or other cardiac complaints except for the shortness of breath on the acute hypoxic respiratory failure. Cardiology consult atrial fibrillation with atrial fibrillation with RVR Assessment and plan: 1. Acute hypoxic respiratory failure in the setting of pneumonia along with parapneumonic effusions. 2. Sepsis secondary to the pneumonia 3. Community-acquired pneumonia-complicated 4. Paroxysmal atrial fibrillation with RVR-in the setting of sepsis and pneumonia and hypoxic respiratory failure 5. Elevated troponins-NSTEMI type II due to supply/demand mismatch with A-fib with RVR 6. Essential hypertension 7. History of significant alcohol use disorder 8. Previous history of GI bleed secondary to Dahlia-Ob[place] tear 9. GERD 10. Unspecified psych disorder with possible mild dementia Patient with paroxysmal atrial fibrillation with RVR but patient unaware of the same. Previous EKGs in 2021 showed the same. Patient came in with atrial fibrillation with RVR with heart rate of around 160s beat per minute. Patient was started on diltiazem bolus as well as drip and is at 10 mg/h. Heart rate appears to be well-controlled between 80-100 bpm. Patient does not have any history of COPD and will start the patient on metoprolol XL 100 mg once daily or 50 mg twice daily blood pressure from the lab. Recommend to stop the diltiazem drip 2 hours after the metoprolol was given. Patient chads Vascor is elevated and was started on heparin drip for anticoagulation and can be eventually transition to Eliquis. Rate is less than 60 kg and her GFR is also less than 60. Patient can be started on Eliquis 2.5 mg twice daily for anticoagulation. Will continue to uptitrate metoprolol patient up ectasia. Keep potassium greater than 4 magnesium greater than 2.0 at all times. Mildly elevated troponins at 0.768 and downtrending to 0.57. Patient denies any chest pain chest pressure or other cardiac complaints at limited historian because of her possible underlying mild dementia. EKG did not show any acute ST changes or history of any ischemia. Recommend no further troponins for now as the troponin elevation is secondary to type II NSTEMI in the setting of supply/demand mismatch. Echocardiogram ordered to rule out any regional wall motion abnormalities and is pending. Patient already on heparin drip for the paroxysmal atrial fibrillation with RVR which we recommend to continue. Essential hypertension-patient blood pressure since admission has been soft and home medications held for now to have enough room for the beta-ivania for rate control. Management of rest of the medical conditions as per primary team and other consultants. Thank you for the consult and allowing me to participate in the care of the patient. Cardiology will continue to follow. Leon Jeter M.D. Interventional Cardiology HPI Data of Consult Requesting Physician: Iwona Anderson MD Admitting Provider: Iwona Anderson MD Attending Provider: Iwona Anderson MD Primary Care Provider: Liliya Hilario MD Consult Narrative History of present illness: Ms. Ryder is a 79 year old female with past medical history significant for history of HTN, Hx of a-fib noted on EKG from 2021 and GI bleed secondary to Dahlia-Obregon tear in 2021 likely related to alcohol use disorder brought by ambulance due to low oxygen saturations at the nursing facility. Patient is a poor historian and is minimally cooperative when giving history and answers to examination question to most of question she answers I do not know . due to current state of mind patient is unable to verify her medical history. Per bedside nurse patient is brought in by the ambulance from [facility] where patient was found to have low oxygen saturation in mid 80s and worsening cough for several days. Patient denies using home oxygen and denies any history of COPD and smoking. During her stay at the [facility] patient was ill for a few days and patient was prescribed a 7-day course of levofloxacin for pneumonia which patient has completed on 07/24, without significant improvement of her symptoms. Patient states she is feeling all right and denies any chest pain, pressure, palpitations or shortness of breath. Currently patient is saturating on room air. Patient was admitted to the hospital for acute hypoxic respiratory failure requiring supplemental oxygen in the setting of sepsis secondary to pneumonia. On initial presentation patient was 3 out of 4 SIRS criteria, tachycardia, tachypnea, leukocytosis. Cardiology team is consulted for patient being in A-fib with RVR currently started on diltiazem drip at 10 mg/h. ED course: In the ED patient's initial blood pressure was 104/79, heart rate 166, respirations 22, temperature 97.7, and patient was saturating at 92% on room air. Lab findings include WBC 15.8, hemoglobin 16.3, hematocrit 47.3, glucose 196, BNP 371 -Urinalysis is unremarkable, patient is fluid negative, RSV negative as well as COVID-negative Patient's troponins are trended initial 0.768 -> 0.610 ->0.574 Chest x-ray shows significant left base pneumonia Chest CTA: Mild heart failure, mild pneumonia on the left base, moderate left and mild right pleural fluids and negative for pulmonary embolism. Home meds: Although patient is unable to verify what medication she takes. Chart reviewing includes patient is prescribed metoprolol tartrate 25 Mg, amlodipine 5 Mg and buspirone HCl 15 Mg cc:: cc: Iwona Anderson MD Review of Systems Review of Systems Systems Reviewed: All systems reviewed, normal except as documented Past Medical History Past Medical History NEUROLOGIC: Negative Neurological Disorders CARDIAC: Negative Cardiac Disorders or Congestive Heart Failure RESPIRATORY: Negative Chronic Obstructive Pulmonary Disease (COPD) GASTROINTESTINAL: Negative Gastrointestinal Disorders GENITOURINARY: Negative Genitourinary Disorders or Renal Disease MUSCULOSKELETAL: Negative Musculoskeletal Disorders ENDOCRINE: Negative Diabetes Mellitus Type 1 or Diabetes Mellitus Type 2 HEMATOLOGIC: Negative Blood Disorders Social History SMOKING STATUS: Unknown if ever smoked SECOND HAND EXPOSURE: Yes Past Medical History Comments PMH COMMENT: Past Medical History: Hypertension, GI bleed secondary to Dahlia-Obregon tear, GERD, alcohol use disorder, unspecified psych disorder Family History: Unknown family history Surgical History: Unknown surgical history Social History: Denies smoking or tobacco use, former alcohol use last drink several months ago, denies recreational drug use Current Medications: Metoprolol tartrate 25 mg BID, amlodipine 5 mg qday, buspirone 15 mg BID, levofloxacin 500 mg (07/18/2024-07/25/2024), acetaminophen 325 mg prn, sennosides 8.6 mg prn, milk of magnesia 30 ml prn, dulcolax 10 mg prn, enema prn, multivitamin qday (Source: [facility] medication list) Allergies: Chlorpromazine - slurred speech Exam Vital Signs Temp Pulse Resp BP Pulse Ox O2 Del Method O2 Flow Rate 97.4 F 98 27 H 100/68 97 Oxy Mask 4 07/24/24 08:05 07/24/24 08:22 07/24/24 08:22 07/24/24 08:05 07/24/24 08:22 07/24/24 08:05 07/24/24 08:22 Narrative Exam GENERAL: A&Ox1. Awake, frail elderly female, minimally cooperative NEURO: no focal neurological deficits noted HEENT: Atraumatic, Normocephalic. mucous membranes moist. Eyes open, symmetrical, & clear HEART: Normal Heart Sounds LUNGS: Clear to auscultation with no wheezing or crackles. ABDOMEN: soft, non-distended, non-tender, bowel sounds heard, no guarding or rebound tenderness SKIN: No Rash or ecchymoses EXTREMITIES: No edema, tenderness, able to move all 4 extremities, pedal pulses palpated Results Labs 07/24/24 05:05 07/24/24 05:05 Labs: Short CBC 07/23/24 07/24/24 Range/Units 22:15 05:05 WBC 15.8 H 14.7 H (3.6-11.0) Thou/mm3 Hgb 16.3 H 13.1 D (12.0-16.0) g/dL Hct 47.3 H 38.3 (36.0-46.0) % Plt Count 460 H 379 D (140-440) Thou/mm3 BMP 07/23/24 07/24/24 22:15 05:05 Sodium 139 138 Potassium 3.4 4.3 D Chloride 102 105 Carbon Dioxide 24.8 24.5 BUN 18 14 Creatinine 0.8 0.6 Glucose 196 H 118 H D Calcium 9.9 8.4 D Cardiac Enzymes 07/23/24 07/24/24 Range/Units 22:15 05:05 Troponin I 0.768 H* 0.610 H* (0.0-0.045) ng/mL Liver Function 07/23/24 07/24/24 Range/Units 22:15 05:05 Total Bilirubin 0.9 0.4 D (0.3-1.2) mg/dL AST 38 H 33 (0-34) U/L ALT 24 13 (10-49) U/L Alkaline Phosphatase 90 70 D (46-116) U/L Albumin 4.4 3.4 D (3.4-4.8) gm/dL Urine 07/24/24 Range/Units 04:10 Urine Color Yellow (Lt Yel-Yel) Urine Clarity Clear (Clear/Hazy) Urine pH 5.0 (5.0-7.0) Ur Specific [place] 1.027 (1.001-1.035) Urine Protein Trace (Neg - Trace) Urine Glucose (UA) Negative (Negative) Quality Measures Quality Measures none Advance care planning discussed with:: patient Medications Home Medications and Allergies Allergies Allergy/AdvReac Type Severity Reaction Status Date / Time chlorpromazine Allergy Mild SLURRED Verified 07/24/24 18:10 SPEECH Visit Medications Acetaminophen (Acetaminophen 325 Mg Tablet) 650 mg PO Q6H PRN PRN Reason: Fever >101.5 Stop: 08/23/24 04:50 Acetaminophen (Acetaminophen 325 Mg Tablet) 650 mg PO Q6H PRN PRN Reason: PAIN SCALE 1-3 (mild Stop: 08/23/24 04:50 Albuterol/Ipratropium (Albuterol/Ipratropium (Duoneb) Rt Ester 3 Ml Nebu) 3 ml INH Q4HRRT JOSE Stop: 08/23/24 06:59 Last Admin: 07/24/24 08:17 Dose: 3 ml Buspirone HCl (Buspirone Hcl 5 Mg Tablet) 15 mg PO BID JOSE Stop: 08/23/24 08:59 Heparin Sodium (Porcine) (Heparin Sod Inj 5000 Unit/Ml Vial) 5,000 unit SC Q8HR [facility] Stop: 08/07/24 05:59 Last Admin: 07/24/24 06:35 Dose: 5,000 unit Diltiazem HCl (Diltiazem In D5w 125 Mg) 125 mg in 125 mls @ 5 mls/hr IV .Q24H JOSE Stop: 08/22/24 22:56 Last Infusion: 07/24/24 00:52 Dose: 10 mg/hr, 10 mls/hr Doxycycline Hyclate 100 mg/ (Sodium Chloride) 100 mls @ 100 mls/hr IV BID [facility] Stop: 07/31/24 08:59 Ondansetron HCl (Ondansetron Inj 2 Mg/Ml Inj 2 Ml) 4 mg IV Q6H PRN; Protocol PRN Reason: NAUSEA OR VOMITING Stop: 08/23/24 04:50 Pantoprazole Sodium (Pantoprazole Inj 40 Mg Vial) 40 mg IVP QDAY [facility] Stop: 08/23/24 08:59 Sennosides (Senna Tablet) 1 tab PO QDAY [facility]; Protocol Stop: 08/23/24 08:59 Discontinued Medications Diltiazem HCl (Diltiazem Inj 5 Mg/Ml Vial 5 Ml) 15 mg IV X1 ONE Stop: 07/23/24 22:08 Last Admin: 07/23/24 22:26 Dose: 15 mg Sodium Chloride (Ns) 1,000 mls @ 999 mls/hr IV .Q1H1M ONE Stop: 07/24/24 02:02 Last Infusion: 07/24/24 02:30 Dose: Infused Magnesium Sulfate (Magnesium Sulfate Ivpb) 2 gm in 50 mls @ 25 mls/hr IV X1 ONE Stop: 07/24/24 03:03 Last Infusion: 07/24/24 03:50 Dose: Infused Ceftriaxone Sodium/Dextrose (Rocephin/D5w 1gm Iv Premix) 50 mls @ 100 mls/hr IV X1 ONE Stop: 07/24/24 02:42 Last Infusion: 07/24/24 03:30 Dose: Infused Piperacillin Sod/Tazobactam (Sod 4.5 gm/ Sodium Chloride) 100 mls @ 200 mls/hr IV X1 ONE Stop: 07/24/24 05:44 Last Infusion: 07/24/24 09:23 Dose: Infused Vancomycin/Sodium Chloride (Vancomycin/Ns 1 Gm Ivpb) 200 mls @ 120 mls/hr IV X1 ONE Stop: 07/24/24 07:39 Last Infusion: 07/24/24 09:24 Dose: Infused Piperacillin/Tazobactam/Dextrose (Zosyn) 50 mls @ 12.5 mls/hr IV Q8HR JOSE Stop: 07/31/24 13:59 Pharmacy Consult (Vancomycin Pharmacy To Dose 1 Each Each) 1 each IV QDAY PRN PRN Reason: CONSULT Stop: 08/23/24 08:59 Potassium Chloride (Potassium Chloride 20 Meq Tabcr) 40 meq PO X1 ONE Stop: 07/24/24 01:04 Last Admin: 07/24/24 01:14 Dose: 40 meq Sodium Chloride (Sodium Chloride Rt 10% 15 Ml Nebu) 5 ml INH X1 ONE Stop: 07/24/24 04:57 Last Admin: 07/24/24 05:18 Dose: 5 ml Assessment & Plan Plan Ms. Ryder is a 79 year old female with past medical history significant for history of HTN, Hx of a-fib noted on EKG from 2021 and GI bleed secondary to Dahlia-Ob[place] tear in 2021 likely related to alcohol use disorder brought by ambulance due to low oxygen saturations at the nursing facility. Pt is admitted to the hospital for IV antibiotics and diltiazam drip as pt was found to be in A-fib with RVR. # Sepsis secondary to #Hospital-acquired pneumonia # Pleural effusions -Chest CTA is evident of moderate left and mild right pleural effusions as well as pneumonia on the left base -Per primary hospitalist team patient is started on IV antibiotics with doxycycline 100 Mg IV twice daily # A-fib with RVR -EKG from 2021 showed patient has history of A-fib and patient home medication include metoprolol 25 Mg daily for rate control -Patient is started on diltiazem drip 10 Mg/hr in the ED -Patient will be transition to metoprolol 100 Mg daily or 50 Mg twice daily and 2 hours after metoprolol is given patient's diltiazem drip to be turned off. -[id number] score 4 points (age greater than 75, female, hypertension history)- Patient underwent thoracentesis and chest tube placement therefore will hold anticoagulation for today. Patient is to be started on anticoagulation with Eliquis when able. HAS-BLED score for major bleeding risk for this patient is 3 points. alternatives to anticoagulation should be considered as pt is at high risk for major bleeding -Keep potassium more than 4, magnesium more than 2 at all times -echocardiogram has been ordered #elevated troponins- likely in the setting of NSTEMI type ll (demand ischemia) -on initial presentation patient had elevated troponins at 0.768 which have now downtrended to 0.574. No further troponin trending is needed. Pt does not exhibit any symptoms of SC, Pt denies chest pain, or pressure. # Primary hypertension -Patient has a history of primary hypertension for which patient takes amlodipine 5 mg daily however on arrival in the ED patient blood pressure is 104/79 and today patient's blood pressure is 119/83 therefore will continue to hold home antihypertensive until permissible Assessment and plan discussed with my attending physician Dr. Corona Cruz (PGY-1)- Internal medicine resident
[2024-07-24] MEDS: SENNA TABLET 1 TAB PO (10:55)
[2024-07-24] MEDS: DOXYCYCLINE INJ 100 MG in SODIUM CHLORIDE 0.9% (P) 100 ML IV ×2 (10:56→20:37)
--- NOTE | 2024-07-24 11:10 | XR_ITS ---
Examination: Ultrasound left hemithorax Ultrasound right hemithorax Exam date and time: July 24 2024 1556 hours INDICATIONS: Shortness of breath this week Technique and findings: High-resolution sonographic images right and left hemithoraces No right pleural fluid Left pleural fluid that lung surface is adjacent to the pleural surface on all images IMPRESSION: Left pleural fluid present but lung surface is adjacent to pleural surface on all sonographic images
[2024-07-24] MEDS: BusPIRone HCL 5 MG TABLET 15 MG PO ×2 (11:18→20:37)
--- NOTE | 2024-07-24 11:43 | PC.NURSE ---
Report called and given to Emely CRAIN.
[2024-07-24 13:01] LABS: Troponin I 0.574 ng/mL (0.0-0.045)
--- NOTE | 2024-07-24 13:55 | PCS.ST ---
Swallow Evaluation completed. See report for details. Continue current diet. ST will follow up.
[2024-07-24 14:49] LABS: Cocci Serology, IgM Positive (Negative)
[2024-07-24 14:50] LABS: Cocid Sro, CF/ID (UCD) NO CHG* See Sep Rpt
--- NOTE | 2024-07-24 15:35 | PC.NURSE ---
Patient unable to answer questions. Tried to contact [facility] to get information from facility. Facility would not answer the phone. Left a message to call me back. Never called back. Completed as much of the admission as possible.
[2024-07-24] MEDS: METOPROLOL SUCCINATE XL 25 MG TABCR 50 MG PO (16:56)
--- NOTE | 2024-07-24 17:35 | ESPR_ITS ---
Documentation for date of: 07/24/24 Subjective Subjective Interval history: HPI limited as patient does not want to answer questions and is a poor historian 07/24/2024: Patient examined at bedside today. Is not experiencing any pain at this time. Telemetry reviewed highest heart rate was in 200s, right now it is at 100s. It is not experiencing any chest pain or shortness of breath. Patient is unable to fully answer a lot of questions as she is a poor historian. Patient is continue with dill drip at this time no complaints at this time Exam Vital Signs Temp Pulse Resp BP Pulse Ox O2 Del Method O2 Flow Rate 97.7 F 89 26 H 97/70 98 Room Air 4 07/24/24 10:58 07/24/24 16:56 07/24/24 15:01 07/24/24 16:56 07/24/24 15:01 07/24/24 10:58 07/24/24 08:22 Narrative Exam Limited physical exam as patient does not want to be examined General: AAOx1, elderly lady might have dementia, redish hair, elderly, frail, looks unkempt HEENT: Dry mucous membranes, conjunctiva clear, EOMI, PERRLA, poor dentition, large lesions seen in corner of right eyebrow looks like some possible skin cancer Cardiovascular: S1, S2, radial pulses +2 bilat, tachycardia, irregularly irregular Pulmonary: Difficulty appreciating breath sounds GI: No tenderness to light or deep palpitation, no guarding, rigidity, rebound tenderness or distension Extremities: No presence of trace or pitting edema in lower extremities bilaterally, dorsalis pedis pulses +2 bilaterally Neuro: AAOx1, no focal motor or sensory deficits in the UE or LE bilat Psych: Not very cooperaetive Objective Labs 07/25/24 05:00 07/25/24 07:37 Labs: Laboratory Results - last 24 hr 07/23/24 07/23/24 07/24/24 22:15 23:17 04:10 WBC 15.8 H RBC 5.49 H Hgb 16.3 H Hct 47.3 H MCV 86 MCH 29.7 MCHC 34.5 RDW Std Deviation 41.5 Plt Count 460 H Neut % (Auto) 78 Lymph % (Auto) 12 [place] % (Auto) 8 Eos % (Auto) 0 Baso % (Auto) 0 Neut # (Auto) 12.3 H Lymph # (Auto) 1.9 [place] # (Auto) 1.3 H Eos # (Auto) 0.0 Baso # (Auto) 0.1 Immature Gran # (Auto) 0.16 H Absolute Nucleated RBC 0.00 Immature Gran % 1 H Nucleated RBC % 0 PT 13.2 H INR 1.2 APTT 26.4 Sodium 139 Potassium 3.4 Chloride 102 Carbon Dioxide 24.8 Anion Gap 12 BUN 18 Creatinine 0.8 Estim Creat Clear Calc Not Performed. eGFR > 60 BUN/Creatinine Ratio 23 H Glucose [address] Glu mg/dL Hemoglobin A1c Calculated Osmolality 284 Calcium 9.9 Corrected Calcium 9.9 Phosphorus 2.8 Magnesium 1.8 Total Bilirubin 0.9 AST 38 H ALT 24 Alkaline Phosphatase 90 Troponin I 0.768 H* B-Natriuretic Peptide 371 H Total Protein 7.5 Albumin 4.4 Globulin 3.1 Albumin/Globulin Ratio 1.4 Triglycerides Cholesterol LDL Cholesterol, Calc HDL Cholesterol Cholesterol/HDL Ratio Procalcitonin 0.06 Free T4 Ur Collection Type Clean Catch Urine Color Yellow Urine Clarity Clear Urine pH 5.0 Ur Specific [place] 1.027 Urine Protein Trace Urine Glucose (UA) Negative Urine Ketones Negative Urine Blood Negative Urine Nitrite Negative Urine Bilirubin Negative Urine Urobilinogen (Auto) Negative Ur Leukocyte Esterase Negative Urine RBC < 1 Urine WBC 1 Ur Squamous Epith Cells < 1 Urine Bacteria None Hyaline Casts < 1 Coccidioides IgM Ab RSV Rapid Negative 07/24/24 07/24/24 05:05 10:45 WBC 14.7 H RBC 4.40 Hgb 13.1 D Hct 38.3 MCV 87 MCH 29.8 MCHC 34.2 RDW Std Deviation 41.8 Plt Count 379 D Neut % (Auto) 76 Lymph % (Auto) 12 [place] % (Auto) 10 Eos % (Auto) 0 Baso % (Auto) 1 Neut # (Auto) 11.2 H Lymph # (Auto) 1.8 [place] # (Auto) 1.5 H Eos # (Auto) 0.0 Baso # (Auto) 0.1 Immature Gran # (Auto) 0.17 H Absolute Nucleated RBC 0.00 Immature Gran % 1 H Nucleated RBC % 0 PT INR APTT Sodium 138 Potassium 4.3 D Chloride 105 Carbon Dioxide 24.5 Anion Gap 9 BUN 14 Creatinine 0.6 Estim Creat Clear Calc 53.4 L eGFR > 60 BUN/Creatinine Ratio 23 H Glucose [address] Glu mg/dL 108 Hemoglobin A1c 5.4 Calculated Osmolality 277 Calcium 8.4 D Corrected Calcium 8.9 Phosphorus Magnesium 2.7 H Total Bilirubin 0.4 D AST 33 ALT 13 Alkaline Phosphatase 70 D Troponin I 0.610 H* 0.574 H* B-Natriuretic Peptide Total Protein 6.0 Albumin 3.4 D Globulin 2.6 Albumin/Globulin Ratio 1.3 Triglycerides 89 Cholesterol 134 LDL Cholesterol, Calc 77 HDL Cholesterol 39 L Cholesterol/HDL Ratio 3.4 L Procalcitonin Free T4 1.48 Ur Collection Type Urine Color Urine Clarity Urine pH Ur Specific [place] Urine Protein Urine Glucose (UA) Urine Ketones Urine Blood Urine Nitrite Urine Bilirubin Urine Urobilinogen (Auto) Ur Leukocyte Esterase Urine RBC Urine WBC Ur Squamous Epith Cells Urine Bacteria Hyaline Casts Coccidioides IgM Ab Positive A RSV Rapid Quality Measures Quality Measures none Advance care planning discussed with:: patient Assessment & Plan Assessment Current Active Medications: Generic Name Dose Route Start Last Admin Trade Name Freq PRN Reason Stop Dose Admin Acetaminophen 650 mg 07/24/24 04:51 Acetaminophen 325 Mg Tablet PO 08/23/24 04:50 Q6H PRN Fever >101.5 Acetaminophen 650 mg 07/24/24 04:51 Acetaminophen 325 Mg Tablet PO 08/23/24 04:50 Q6H PRN PAIN SCALE 1-3 (mild Albuterol/Ipratropium 3 ml 07/24/24 07:00 07/24/24 14:55 Albuterol/Ipratropium (Duoneb) Rt Ester 3 Ml Nebu INH 08/23/24 06:59 3 ml Q4HRRT JOSE Administration Ampicillin Sodium/Sulbactam Sodium 3 gm 07/24/24 18:00 Ampicillin/Sulbac Inj 3 Gm Vial IV 07/31/24 17:59 Q6HR JOSE Buspirone HCl 15 mg 07/24/24 09:00 07/24/24 11:18 Buspirone Hcl 5 Mg Tablet PO 08/23/24 08:59 15 mg BID JOSE Administration Heparin Sodium (Porcine) 5,000 unit 07/24/24 06:00 07/24/24 13:45 Heparin Sod Inj 5000 Unit/Ml Vial SC 08/07/24 05:59 5,000 unit Q8HR JOSE Administration Doxycycline Hyclate 100 mg/ 100 mls @ 100 mls/hr 07/24/24 09:00 07/24/24 10:56 Sodium Chloride IV 07/31/24 08:59 100 mls/hr BID JOSE Administration Fluconazole 400 mg in 200 mls @ 100 mls/hr 07/24/24 17:23 Diflucan/Ns Ivpb IV 07/31/24 17:22 QDAY JOSE Metoprolol Succinate 50 mg 07/24/24 16:30 07/24/24 16:56 Metoprolol Succinate Xl 25 Mg Tabcr PO 08/23/24 16:29 50 mg QDAY JOSE Administration Ondansetron HCl 4 mg 07/24/24 04:51 Ondansetron Inj 2 Mg/Ml Inj 2 Ml IV 08/23/24 04:50 Q6H PRN NAUSEA OR VOMITING Protocol Pantoprazole Sodium 40 mg 07/24/24 09:00 07/24/24 10:30 Pantoprazole Inj 40 Mg Vial IVP 08/23/24 08:59 40 mg QDAY JOSE Administration Sennosides 1 tab 07/24/24 09:00 07/24/24 10:55 Senna Tablet PO 08/23/24 08:59 1 tab QDAY JOSE Administration Protocol Plan Assessment Mr. Ryder is a 79-year-old female with past medical history of hypertension, GI bleed secondary to [place] tear, GERD, alcohol use disorder, unspecified psych disorder who was BIBA from [facility] to the [facility] ED on 07/23/2024 for acute hypoxic respiratory failure with sepsis secondary to pneumonia and A-fib with RVR. #Acute hypoxic respiratory failure #Sepsis secondary to pneumonia, SIRS +3/4, leukocytosis #CAP versus HCAP #Left-sided pleural effusion #Coccidioides IgM positive Patient was initially diagnosed with pneumonia, parapneumonic effusion and [facility], was started on oral levofloxacin, completed 6 out of 7-day course with worsening symptoms and hypoxemia was eventually sent to ER via EMS, patient SpO2 88% on room air, noncompliant with oxygen therapy. Patient has cough and shortness of breath, chest x-ray significant for left base pneumonia, preliminary CTA negative for PE shows bilateral parapneumonic effusion, cardiomegaly and concern of CHF. Curb 65 2 points, moderate risk 6.8% 30-day mortality group, PSI/port score 117 points risk class IV 8.2 to 9.3% mortality. Flu, COVID, RSV negative Patient went down for thoracentesis, pleural effusion was not amendable to thoracentesis per IR Will continue with current management to see how patient improves COVID, RSV and flu negative Plan: -Will continue with Unasyn and doxycycline at this time -DuoNeb treatment as needed -Follow-up MRSA nasal screen, sputum culture, cocci serology -Follow-up blood culture ?Continue with fluconazole 400 mg daily ?Follow-up Coccidioides IgG #Atrial fibrillation with RVR #Cardiomegaly, concern of CHF On presentation patient's heart rate 190, EKG significant for A-fib with RVR no reported history of A-fib, EKG from 2021 shows atrial fibrillation. Patient started on diltiazem drip in ED. [id number] score 4 points, BNP 371 HAS-BLED:3 points Patient does have history of Dahlia-[place] tear and GI bleed Bleeding risk, however patient does need anticoagulation for A-fib with RVR, risk-benefit situation here TSH 1.48 LDL 77, total cholesterol 134 A1c 5.4 Pt had dilt drip discontinued after leaving ED, and was without medicine for ~5 hours before metoprolol XL was started Dilt drip was supposed to go for an additional couple of hours Plan: -Continue with metoprolol XL 50 mg p.o., will uptitrate as blood pressure and rate allows -Consulted cardiology, appreciate recommendations -Strict intake and output, daily weight, fluid restriction 1500 cc -Follow-up echo -Keep potassium more than 4, magnesium more than 2 #NSTEMI type I versus type II, demand ischemia, resolved Troponin peaked at 0.768 # History of hypertension Plan: ?Patient was initially on Cardizem drip ?Continue with metoprolol 50 mg with holding parameters of SBP below 100 and heart rate below 55 #Polycythemia #Thrombocytosis Plan: ? Trend with CBC #Hyperglycemia Plan: ? Follow-up A1c #Mild transaminitis Plan: ?Trend with CMP # History of FARTUN Plan: ? Resumed home BuSpar 15 mg twice daily #Health Maintenance Disposition: Telemetry DVT prophylaxis: Eliquis GI prophylaxis: Pantoprazole 40 mg daily Diet: Dysphagia 3 CODE STATUS: Full Patient seen and care discussed with my senior resident, Dr. Senior , and my attending physician, Dr. Brianna Lin, PGY-1 Attending Provider Attestation/Addendum I reviewed labs, imaging, EKG, home medications and prior available records. Face to face evaluation was performed by me. I have personally examined the patient and discussed assessment and plan with the IM team. I reviewed the resident note and agree with the plan with exceptions as below. Acute hypoxic respiratory failure: In the setting of left lower lobe pneumonia. Started ceftriaxone/doxycycline. Left pleural effusion: Consult IR for pleurocentesis given the possible associated pneumonia. Send fluid to analysis and culture Atrial fibrillation with rapid ventricular response: Rate is now controlled. Held diltiazem drip. Started metoprolol. Obtained echocardiogram
[2024-07-24] MEDS: FLUCONAZOLE/NS 400 MG IVPB 400 MG/200 ML BAG 100 MG IV (18:17)
[2024-07-24] MEDS: SULBAC IV (19:05)
[2024-07-24] MEDS: AMPICILLIN IV (19:05)
[2024-07-24] MEDS: SODIUM CHLORIDE 0.9% IV (19:05)
--- NOTE | 2024-07-24 19:10 | PC.NURSE ---
Went to administer 1800 ampicillin to patient. medication was not in mar correctly. called pharmacy to change. pharmacy said they would mix the med and bring up. once med was brought up would not scan on aug. contacted pharmacy to fix. Pharmacy said they fix it so it would scan. med still would not scan. called pharmacy again. pharmacy would not answer. had to manually enter med.
[2024-07-24 19:53] LABS: Troponin I 0.525 ng/mL (0.0-0.045)
[2024-07-24] MEDS: APIXABAN 2.5 MG TABLET PO (20:37)
[2024-07-25] VITALS (17 sets, daily range): BP systolic 93–141; BP diastolic 62–92; PULSE 106–148; RESP 16–96; TEMP 36–36.7; O2SAT 95–99; BMI 17.9
[2024-07-25] MEDS: AMPICILLIN IV ×2 (01:15→05:45)
[2024-07-25] MEDS: SODIUM CHLORIDE 0.9% IV ×2 (01:15→05:45)
[2024-07-25] MEDS: SULBAC IV ×2 (01:15→05:45)
--- NOTE | 2024-07-25 02:29 | EKG_ITS ---
[facility] Test Date: 2024-07-25 Pat Name: AZAR MONTERO [facility] Gender: Female Dishroom Attendant: BRITTNEY : 1945 Requested By: Dianne Fonseca Order Number: [id number] Reading MD: Dianne Fonseca Measurements Intervals [place] Rate: 133 P: GA: QRS: 116 QRSD: 80 T: 0 QT: 323 QTc: 482 Interpretive Statements ATRIAL FIBRILLATION WITH RAPID VENTRICULAR RESPONSE LOW QRS VOLTAGE IN EXTREMITY LEADS SEPTAL MYOCARDIAL INFARCTION , OF INDETERMINATE AGE LATERAL MYOCARDIAL INFARCTION , PROBABLY OLD Compared to ECG 01/26/2022 09:51:36 Low QRS voltage now present Myocardial infarct finding now present ST (T wave) deviation no longer present /store/S0/[id number].pdf
--- NOTE | 2024-07-25 02:30 | PC.NURSE ---
Hospitalist called and notified of Pt HR as high as 148, called about an hour ago that HR went to 130, Order placed for EKG, no further orders recieved.
[2024-07-25 06:14] LABS: Partial Thromboplastin Time 31.9 Seconds (22.0-36.0); Prothrombin Time 10.6 Seconds (9.0-12.2)
[2024-07-25 06:22] LABS: Basophils # (Auto) 0.1 Thou/mm3 (0.0-0.2); Basophils % (Auto) 1 % (0-2.5); Eosinophils # (Auto) 0.1 Thou/mm3 (0.0-0.5); Eosinophils % (Auto) 1 % (0-10); Hematocrit 44.1 % (36.0-46.0); Hemoglobin 14.9 g/dL (12.0-16.0); Immature Granulocytes % (Auto) 1 % (0-0); Immature Granulocytes Auto 0.12 Thou/mm3 (0.00-0.00); Lymphocytes # (Auto) 1.6 Thou/mm3 (1.0-4.8); Lymphocytes % (Auto) 14 % (10-50); Mean Corpuscular HGB Conc 33.8 g/dl (31.0-37.0); Mean Corpuscular Hemoglobin 29.6 pg (25.0-35.0); Mean Corpuscular Volume 88 fL (80-100); Monocytes # (Auto) 1.2 Thou/mm3 (0.0-0.8); Monocytes % (Auto) 10 % (0-12); Neutrophils # (Auto) 8.2 Thou/mm3 (1.8-7.7); Neutrophils % (Auto) 73 % (37-80); Nucleated Red Blood Cell % 0 /100 WBC (0); Platelet Count 346 Thou/mm3 (140-440); Red Blood Count 5.04 Miln/mm3 (4.00-5.20); White Blood Count 11.3 Thou/mm3 (3.6-11.0)
[2024-07-25] MEDS: AMIODARONE 150 MG IVPB 150 MG/100 ML BAG 600 MG IV (07:19)
[2024-07-25] MEDS: SODIUM CHLORIDE 0.9% 250 ML 250 ML 999 ML IV (07:43)
[2024-07-25 08:05] LABS: Alanine Aminotransferase 15 U/L (10-49); Albumin, Serum 3.4 gm/dL (3.4-4.8); Albumin/Globulin Ratio 1.4 (1.2-2.2); Alkaline Phosphatase 77 U/L (46-116); Anion Gap 12 (7-16); Aspartate Amino Transferase 19 U/L (0-34); BUN/Creatinine Ratio 15 Ratio (12-20); Bilirubin,Total 0.5 mg/dL (0.3-1.2); Blood Urea Nitrogen 9 mg/dL (9-23); Calcium 8.4 mg/dL (8.3-10.6); Calcium (Corrected) 8.9 mg/dL (8.5-10.1); Carbon Dioxide 20.1 mMol/L (20.0-31.0); Chloride 109 mMol/L (98-107); Creatinine (Component) 0.6 mg/dL (0.6-1.3); Globulin 2.4 gm/dL (2.3-3.5); Glucose 169 mg/dL (74-106); Osmolality,Calculated 283 (275-295); Phosphorous 2.4 mg/dL (2.4-5.1); Potassium 4.1 mMol/L (3.4-5.1); Sodium 141 mMol/L (136-145); Thyroid Stimulating Hormone 3.14 uIU/mL (0.55-4.78); Total Protein 5.8 gm/dL (5.7-8.2); eGFR > 60 See Note
--- NOTE | 2024-07-25 08:18 | ESPR_ITS ---
Documentation for date of: 07/25/24 Subjective Subjective Interval history: HPI limited as patient does not want to answer questions and is a poor historian 07/24/2024: Patient examined at bedside today. Is not experiencing any pain at this time. Telemetry reviewed highest heart rate was in 200s, right now it is at 100s. It is not experiencing any chest pain or shortness of breath. Patient is unable to fully answer a lot of questions as she is a poor historian. Patient is continue with dill drip at this time no complaints at this time 07/25/2024: Patient examined at bedside today. Telemetry reviewed, patient is still in A-fib, heart rate going up to the 170s, rate has been around the 130s, Amio drip started overnight after patient was given Cardizem and remained to be in A-fib with RVR. Patient reports he is not experiencing chest pain, palpitation or shortness of breath. She continues to be a poor historian and seems a bit lethargic. She is still able to answer some questions. BUN/creatinine 9 and 0.6 respectively, potassium 4.1, magnesium 2, white count of 11.3, hemoglobin 14.9. Exam Vital Signs Temp Pulse Resp BP Pulse Ox O2 Del Method O2 Flow Rate 97.1 F 144 H 16 140/88 H 96 Room Air 4 07/25/24 07:54 07/25/24 07:19 07/25/24 07:54 07/25/24 07:54 07/25/24 07:54 07/25/24 07:54 07/24/24 08:22 Narrative Exam Limited physical exam as patient does not want to be examined General: AAOx1, elderly lady might have dementia, redish hair, elderly, frail, looks unkempt HEENT: Dry mucous membranes, conjunctiva clear, EOMI, PERRLA, poor dentition, large lesions seen in corner of right eyebrow looks like some possible skin cancer Cardiovascular: S1, S2, radial pulses +2 bilat, tachycardia, irregularly irregular Pulmonary: Difficulty appreciating breath sounds GI: No tenderness to light or deep palpitation, no guarding, rigidity, rebound tenderness or distension Extremities: No presence of trace or pitting edema in lower extremities bilaterally, dorsalis pedis pulses +2 bilaterally Neuro: AAOx1, no focal motor or sensory deficits in the UE or LE bilat Psych: Not very cooperaetive Objective Labs 07/26/24 05:09 07/26/24 05:09 Labs: Laboratory Results - last 24 hr 07/24/24 07/24/24 07/25/24 10:45 18:38 05:00 WBC 11.3 H RBC 5.04 Hgb 14.9 Hct 44.1 MCV 88 MCH 29.6 MCHC 33.8 RDW Std Deviation 44.0 Plt Count 346 D Neut % (Auto) 73 Lymph % (Auto) 14 [place] % (Auto) 10 Eos % (Auto) 1 Baso % (Auto) 1 Neut # (Auto) 8.2 H Lymph # (Auto) 1.6 [place] # (Auto) 1.2 H Eos # (Auto) 0.1 Baso # (Auto) 0.1 Immature Gran # (Auto) 0.12 H Absolute Nucleated RBC 0.00 Immature Gran % 1 H Nucleated RBC % 0 PT 10.6 INR 1.0 APTT 31.9 Sodium Potassium Chloride Carbon Dioxide Anion Gap BUN Creatinine Estim Creat Clear Calc eGFR BUN/Creatinine Ratio Glucose Calculated Osmolality Calcium Corrected Calcium Phosphorus Magnesium Total Bilirubin AST ALT Alkaline Phosphatase Troponin I 0.574 H* 0.525 H* Total Protein Albumin Globulin Albumin/Globulin Ratio TSH Coccidioides IgM Ab Positive A 07/25/24 07:37 WBC RBC Hgb Hct MCV MCH MCHC RDW Std Deviation Plt Count Neut % (Auto) Lymph % (Auto) [place] % (Auto) Eos % (Auto) Baso % (Auto) Neut # (Auto) Lymph # (Auto) [place] # (Auto) Eos # (Auto) Baso # (Auto) Immature Gran # (Auto) Absolute Nucleated RBC Immature Gran % Nucleated RBC % PT INR APTT Sodium 141 Potassium 4.1 Chloride 109 H Carbon Dioxide 20.1 Anion Gap 12 BUN 9 Creatinine 0.6 Estim Creat Clear Calc 50.0 L eGFR > 60 BUN/Creatinine Ratio 15 Glucose 169 H D Calculated Osmolality 283 Calcium 8.4 Corrected Calcium 8.9 Phosphorus 2.4 Magnesium 2.0 Total Bilirubin 0.5 AST 19 ALT 15 Alkaline Phosphatase 77 Troponin I Total Protein 5.8 Albumin 3.4 Globulin 2.4 Albumin/Globulin Ratio 1.4 TSH 3.14 Coccidioides IgM Ab Quality Measures Quality Measures none Advance care planning discussed with:: patient Assessment & Plan Assessment Current Active Medications: Generic Name Dose Route Start Last Admin Trade Name Freq PRN Reason Stop Dose Admin Acetaminophen 650 mg 07/24/24 04:51 Acetaminophen 325 Mg Tablet PO 08/23/24 04:50 Q6H PRN Fever >101.5 Acetaminophen 650 mg 07/24/24 04:51 Acetaminophen 325 Mg Tablet PO 08/23/24 04:50 Q6H PRN PAIN SCALE 1-3 (mild Albuterol/Ipratropium 3 ml 07/24/24 07:00 07/25/24 02:47 Albuterol/Ipratropium (Duoneb) Rt Ester 3 Ml Nebu INH 08/23/24 06:59 Not Given Q4HRRT JOSE Apixaban 2.5 mg 07/24/24 21:00 07/24/24 20:37 Apixaban 2.5 Mg Tablet PO 08/23/24 20:59 2.5 mg BID JOSE Administration Buspirone HCl 15 mg 07/24/24 09:00 07/24/24 20:37 Buspirone Hcl 5 Mg Tablet PO 08/23/24 08:59 15 mg BID JOSE Administration Doxycycline Hyclate 100 mg/ 100 mls @ 100 mls/hr 07/24/24 09:00 07/24/24 20:37 Sodium Chloride IV 07/31/24 08:59 100 mls/hr BID JOSE Administration Fluconazole 400 mg in 200 mls @ 100 mls/hr 07/24/24 17:23 07/24/24 18:17 Diflucan/Ns Ivpb IV 07/31/24 17:22 100 mls/hr QDAY@2100 JOSE Administration Ampicillin Sodium/Sulbactam 50 mls @ 100 mls/hr 07/24/24 18:00 07/25/24 05:45 Sodium 3 gm/ Sodium Chloride IV 07/31/24 17:59 100 mls/hr Q6HR JOSE Administration Amiodarone HCl/Dextrose 360 mg in 200 mls @ 16.667 mls/hr 07/25/24 12:40 Nexterone Ivpb IV 07/26/24 12:39 .Q12H JOSE Amiodarone HCl/Dextrose 360 mg in 200 mls @ 33.333 mls/hr 07/25/24 06:40 Nexterone Ivpb IV 07/25/24 12:39 .Q6H ONE Metoprolol Succinate 100 mg 07/25/24 09:00 Metoprolol Succinate Xl 25 Mg Tabcr PO 08/24/24 08:59 QDAY JOSE Ondansetron HCl 4 mg 07/24/24 04:51 Ondansetron Inj 2 Mg/Ml Inj 2 Ml IV 08/23/24 04:50 Q6H PRN NAUSEA OR VOMITING Protocol Pantoprazole Sodium 40 mg 07/24/24 09:00 07/24/24 10:30 Pantoprazole Inj 40 Mg Vial IVP 08/23/24 08:59 40 mg QDAY JOSE Administration Sennosides 1 tab 07/24/24 09:00 07/24/24 10:55 Senna Tablet PO 08/23/24 08:59 1 tab QDAY JOSE Administration Protocol Plan Assessment Mr. Ryder is a 79-year-old female with past medical history of hypertension, GI bleed secondary to Dahlia-[place] tear, GERD, alcohol use disorder, unspecified psych disorder who was BIBA from [facility] to the [facility] ED on 07/23/2024 for acute hypoxic respiratory failure with sepsis secondary to pneumonia and A-fib with RVR. #Acute hypoxic respiratory failure #Sepsis secondary to pneumonia, SIRS +3/4, leukocytosis #CAP versus HCAP #Left-sided pleural effusion #Coccidioides IgM positive Patient was initially diagnosed with pneumonia, parapneumonic effusion and [facility], was started on oral levofloxacin, completed 6 out of 7-day course with worsening symptoms and hypoxemia was eventually sent to ER via EMS, patient SpO2 88% on room air, noncompliant with oxygen therapy. Patient has cough and shortness of breath, chest x-ray significant for left base pneumonia, preliminary CTA negative for PE shows bilateral parapneumonic effusion, cardiomegaly and concern of CHF. Curb 65 2 points, moderate risk 6.8% 30-day mortality group, PSI/port score 117 points risk class IV 8.2 to 9.3% mortality. Flu, COVID, RSV negative Patient went down for thoracentesis, pleural effusion was not amendable to thoracentesis per IR Will continue with current management to see how patient improves COVID, RSV and flu negative Blood cultures no growth after 1 day Plan: -Will continue with Rocephin and doxycycline at this time -DuoNeb treatment as needed -Follow-up MRSA nasal screen, sputum culture, cocci serology -Follow-up blood culture ?Continue with fluconazole 400 mg daily ?Follow-up Coccidioides IgG #Atrial fibrillation with RVR #History of HFrEF with systolic and diastolic function, EF 25 to 30% [id number] score 4 points, BNP 371 HAS-BLED:3 points Patient does have history of Dahlia-[place] tear and GI bleed Bleeding risk, however patient does need anticoagulation for A-fib with RVR, risk-benefit situation here TSH 1.48 LDL 77, total cholesterol 134 A1c 5.4 Patient was given 20 mg Cardizem IV in addition to 500 cc bolus last night Amio drip was started as patient remained to be in A-fib with RVR Give patient another 250 cc bolus At this time, we will continue finishing Amio drip as it was started overnight, and will continue with Amio p.o. Patient does not appear to be in heart failure at this time, however will monitor Plan: ?Finish amio drip ?Amio 200 mg twice daily po ?Eliquis 2.5 mg twice daily -Consulted cardiology, appreciate recommendations -Strict intake and output, daily weight, fluid restriction 1500 cc -Keep potassium more than 4, magnesium more than 2 #NSTEMI type I versus type II, demand ischemia, resolved Troponin peaked at 0.768 # History of hypertension Blood pressure has been soft we will hold on giving blood pressure medicines at this time Plan: ?Hold on resuming blood pressure medicines at this time #Polycythemia #Thrombocytosis Plan: ? Trend with CBC #Mild transaminitis, resolved Plan: ?Trend with CMP # History of FARTUN Plan: ? Resumed home Buspar 15 mg twice daily #Health Maintenance Disposition: Telemetry DVT prophylaxis: Eliquis GI prophylaxis: Pantoprazole 40 mg daily Diet: Dysphagia 3 CODE STATUS: Full Patient seen and care discussed with my senior resident, Dr. Wright, and my attending physician, Dr. Brianna Lin, PGY-1 Attending Provider Attestation/Addendum I reviewed labs, imaging, EKG, home medications and prior available records. Face to face evaluation was performed by me. I have personally examined the patient and discussed assessment and plan with the IM team. I reviewed the resident note and agree with the plan with exceptions as below. Acute hypoxic respiratory failure: In the setting of left lower lobe pneumonia. Cocci pneumonia is positive. Started ceftriaxone/doxycycline. Started fluconazole Left pleural effusion: Consult IR for pleurocentesis given the possible associated pneumonia: Insufficient fluids for drainage Atrial fibrillation with rapid ventricular response: Rate is uncontrolled. Started IV amnio. Started p.o. diltiazem. Ordered echocardiogram that showed severely reduced EF of 25 to 30%. Non-STEMI: Likely in the setting of hypoxia and A-fib with RVR. Troponin peaked. Management as above.
[2024-07-25] MEDS: AMIODARONE 360 MG IVPB 360 MG/200 ML BAG 33.333 MG IV (08:21)
[2024-07-25] MEDS: SENNA TABLET 1 TAB PO (08:37)
[2024-07-25] MEDS: APIXABAN 2.5 MG TABLET PO ×2 (08:37→22:55)
[2024-07-25] MEDS: BusPIRone HCL 5 MG TABLET 15 MG PO ×2 (08:37→22:53)
[2024-07-25] MEDS: DOXYCYCLINE INJ 100 MG in SODIUM CHLORIDE 0.9% (P) 100 ML IV ×2 (10:53→22:53)
[2024-07-25] MEDS: PANTOPRAZOLE INJ 40 MG VIAL IVP (10:54)
[2024-07-25] MEDS: cefTRIAXone/D5w 1gm IV premix 50 ML IV (10:58)
[2024-07-25] MEDS: guaiFENesin/DM TABLET 1 EACH PO ×2 (12:07→23:03)
--- NOTE | 2024-07-25 13:17 | PD.IMPROG ---
Documentation for date of: 07/25/24 Subjective Subjective Interval history: Patient seen and examined at the bedside. Patient denies any cardiac complaints and still not responding to questions well. Overnight events reviewed and patient apparently was in atrial fibrillation with RVR and patient was started on amiodarone drip for rate control as patient was hypotensive. She did tolerate the diltiazem drip and then was transition to metoprolol XL but patient became hypotensive overnight and could be worsening sepsis. Recommend to continue amiodarone drip for now for rate control but patient's heart rate is still in the 140 to 150 bpm Recommend to also start patient on 200 mg twice daily of amiodarone and continue metoprolol XL 50 mg once daily if blood pressure is better. No Cardizem given the LV systolic dysfunction. 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 Eliquis 2.5 mg twice daily for anticoagulation. ChadsVascor was elevated at 5 and has-bled score is 3 Recommend aggressive treatment of the sepsis. Echo completed on 07/25/2024 showed severely decreased LV function with an EF of 25 to 30% with moderately decreased RV function. Diastolic dysfunction present but cannot breathe because of A-fib. Mild PAH with estimated RVSP of 40 mmHg. Moderate MAC along with mild to moderate aortic valve sclerosis without stenosis. Moderate eccentric MR as well as TR. Mild AI and mild biatrial dilatation. Patient has evidence of severe systolic dysfunction along with moderate RV dysfunction, diastolic dysfunction and moderate valvular heart disease. Patient does not appear to be fluid overloaded at the present point of time. 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 Recommend strict input output, daily weights and 2 g sodium diet. Patient will need to be on goal-directed medical therapy with beta-ivania, JACOB inhibitor's as well as spironolactone but patient is hypotensive as noted above and will hold off on the GDMT for now and can be reintroduced one by one but recommend to start with beta-ivania for rate management. Patient's weight is only 40 kg patient appears to be malnourished and also has possible mild to moderate dementia at baseline with multiple comorbidities as noted above. Recommend primary team to discuss the goals of care with family or next of kin. Exam Vital Signs Temp Pulse Resp BP Pulse Ox O2 Del Method O2 Flow Rate 97.1 F 136 H 22 H 93/70 97 Room Air 4 07/25/24 07:54 07/25/24 12:00 07/25/24 10:23 07/25/24 08:21 07/25/24 10:23 07/25/24 07:54 07/24/24 08:22 Narrative Exam GENERAL: A&Ox1. Awake, frail elderly female, minimally cooperative NEURO: no focal neurological deficits noted HEENT: Atraumatic, Normocephalic. mucous membranes moist. Eyes open, symmetrical, & clear HEART: Normal Heart Sounds LUNGS: Clear to auscultation with no wheezing or crackles. ABDOMEN: soft, non-distended, non-tender, bowel sounds heard, no guarding or rebound tenderness SKIN: No Rash or ecchymoses EXTREMITIES: No edema, tenderness, able to move all 4 extremities, pedal pulses palpated Objective Labs 07/26/24 05:09 07/26/24 05:09 Labs: Laboratory Results - last 24 hr 07/24/24 07/24/24 07/25/24 10:45 18:38 05:00 WBC 11.3 H RBC 5.04 Hgb 14.9 Hct 44.1 MCV 88 MCH 29.6 MCHC 33.8 RDW Std Deviation 44.0 Plt Count 346 D Neut % (Auto) 73 Lymph % (Auto) 14 [place] % (Auto) 10 Eos % (Auto) 1 Baso % (Auto) 1 Neut # (Auto) 8.2 H Lymph # (Auto) 1.6 [place] # (Auto) 1.2 H Eos # (Auto) 0.1 Baso # (Auto) 0.1 Immature Gran # (Auto) 0.12 H Absolute Nucleated RBC 0.00 Immature Gran % 1 H Nucleated RBC % 0 PT 10.6 INR 1.0 APTT 31.9 Sodium Potassium Chloride Carbon Dioxide Anion Gap BUN Creatinine Estim Creat Clear Calc eGFR BUN/Creatinine Ratio Glucose Calculated Osmolality Calcium Corrected Calcium Phosphorus Magnesium Total Bilirubin AST ALT Alkaline Phosphatase Troponin I 0.525 H* Total Protein Albumin Globulin Albumin/Globulin Ratio TSH Coccidioides IgM Ab Positive A 07/25/24 07:37 WBC RBC Hgb Hct MCV MCH MCHC RDW Std Deviation Plt Count Neut % (Auto) Lymph % (Auto) [place] % (Auto) Eos % (Auto) Baso % (Auto) Neut # (Auto) Lymph # (Auto) [place] # (Auto) Eos # (Auto) Baso # (Auto) Immature Gran # (Auto) Absolute Nucleated RBC Immature Gran % Nucleated RBC % PT INR APTT Sodium 141 Potassium 4.1 Chloride 109 H Carbon Dioxide 20.1 Anion Gap 12 BUN 9 Creatinine 0.6 Estim Creat Clear Calc 50.0 L eGFR > 60 BUN/Creatinine Ratio 15 Glucose 169 H D Calculated Osmolality 283 Calcium 8.4 Corrected Calcium 8.9 Phosphorus 2.4 Magnesium 2.0 Total Bilirubin 0.5 AST 19 ALT 15 Alkaline Phosphatase 77 Troponin I Total Protein 5.8 Albumin 3.4 Globulin 2.4 Albumin/Globulin Ratio 1.4 TSH 3.14 Coccidioides IgM Ab Assessment & Plan A&P Narrative A 79-year-old female who resident of [facility] with a past medical history of essential hypertension, paroxysmal atrial fibrillation noted on EKG in 2021, history of GI bleed secondary to Dahlia-[place] tear, history of alcohol use disorder, ex-smoker as per documentation but patient denies, GERD and unspecified psych disorder was brought into the emergency department for further evaluation of hypoxia and low saturations and worsening cough over the last few days. Patient was found to have acute respiratory failure secondary to possible Pneumonia along with a parapneumonic effusion and the suspicion of empyema. Patient was noted to be in atrial fibrillation with RVR on admission with a heart rate of around 150 bpm -180 bpm. EKG did show atrial fibrillation with RVR but no evidence of any acute ST-T changes. Initial vitals in the emergency department showed a blood pressure of 104/70 mmHg, heart rate of 1 6 6/min respirate rate of 22, temp of 97.7, saturation of 92% on oxygen by nasal cannula. WBC elevated 15 and 8 with left shift and hemoglobin 16.3 platelets 460, glucose 196, BNP 371 troponin was 0.768. UA was negative flu negative RSV negative. Chest x-ray showed significant left base pneumonia and CTA chest was also performed which showed no evidence of any pulmonary embolism but showed left base pneumonia, mild heart failure and moderate left and mild right pleural effusions. After patient was diagnosed with pneumonia at [facility] and patient was on levofloxacin for 7 days. Denies any kind of chest pain chest pressure or other cardiac complaints except for the shortness of breath on the acute hypoxic respiratory failure. Cardiology consulted for atrial fibrillation with atrial fibrillation with RVR Assessment and plan: 1. Acute hypoxic respiratory failure in the setting of pneumonia along with parapneumonic effusions. 2. Sepsis secondary to the pneumonia 3. Paroxysmal atrial fibrillation with RVR in the setting of sepsis and pneumonia and hypoxic respiratory failure 4. 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 Elevated troponins-NSTEMI type II due to supply/demand mismatch with A-fib with RVR 6. Community-acquired pneumonia-complicated 7. Parapneumonic effusions 8. Essential hypertension 9. History of significant alcohol use disorder 10. Previous history of GI bleed secondary to Dahlia-Ob[place] tear 11. GERD 12. Unspecified psych disorder with possible underlying mild to moderate dementia Patient with paroxysmal atrial fibrillation with RVR but patient unaware of the same. Previous EKGs in 2021 showed the same. Patient came in with atrial fibrillation with RVR with heart rate of around 160s beat per minute. Patient was started on diltiazem bolus as well as drip and is at 10 mg/h. Heart rate appears to be well-controlled between 80-100 bpm. Patient does not have any history of COPD and will start the patient on metoprolol XL 100 mg once daily or 50 mg twice daily blood pressure from the lab. Recommend to stop the diltiazem drip 2 hours after the metoprolol was given. Patient chads Vascor is elevated and was started on heparin drip for anticoagulation and can be eventually transition to Eliquis. Weight is less than 60 kg and her GFR is also less than 60. Patient can be started on Eliquis 2.5 mg twice daily for anticoagulation. Will continue to uptitrate metoprolol patient up ectasia. Keep potassium greater than 4 magnesium greater than 2.0 at all times. 07/25/2024 Overnight events reviewed and patient apparently was in atrial fibrillation with RVR and patient was started on amiodarone drip for rate control as patient was hypotensive. She did tolerate the diltiazem drip and then was transition to metoprolol XL but patient became hypotensive overnight and could be worsening sepsis. Recommend to continue amiodarone drip for now for rate control but patient's heart rate is still in the 140 to 150 bpm Recommend to also start patient on 200 mg twice daily of amiodarone and continue metoprolol XL 50 mg once daily if blood pressure is better. No Cardizem given the LV systolic dysfunction. 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 Eliquis 2.5 mg twice daily for anticoagulation. ChadsVascor was elevated at 5 and has-bled score is 3 Recommend aggressive treatment of the sepsis. Regarding her severe biventricular and combined systolic diastolic congestive heart failure Echo completed on 07/25/2024 showed severely decreased LV function with an EF of 25 to 30% with moderately decreased RV function. Diastolic dysfunction present but cannot breathe because of A-fib. Mild PAH with estimated RVSP of 40 mmHg. Moderate MAC along with mild to moderate aortic valve sclerosis without stenosis. Moderate eccentric MR as well as TR. Mild AI and mild biatrial dilatation. Patient has evidence of severe systolic dysfunction along with moderate RV dysfunction, diastolic dysfunction and moderate valvular heart disease. Patient does not appear to be fluid overloaded at the present point of time. 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 Recommend strict input output, daily weights and 2 g sodium diet. Patient will need to be on goal-directed medical therapy with beta-ivania, JACOB inhibitor's as well as spironolactone but patient is hypotensive as noted above and will hold off on the GDMT for now and can be reintroduced one by one but recommend to start with beta-ivania for rate management. Mildly elevated troponins at 0.768 and downtrending to 0.57. Patient denies any chest pain chest pressure or other cardiac complaints at limited historian because of her possible underlying mild dementia. EKG did not show any acute ST changes or history of any ischemia. Recommend no further troponins for now as the troponin elevation is secondary to type II NSTEMI in the setting of supply/demand mismatch. Echocardiogram reviewed and showed severe LV dysfunction with an EF of 25 to 30% but global hypokinesis and there was no evidence of any particular regional wall motion abnormalities. Overall picture appears to be tachycardia induced cardiomyopathy with is her uncontrolled longstanding atrial fibrillation with RVR. Recommend aspirin if tolerated along with statin and beta-ivania. Patient's weight is only 40 kg patient appears to be malnourished and also has possible mild to moderate dementia at baseline with multiple comorbidities as noted above. Recommend primary team to discuss the goals of care with family or next of kin. Essential hypertension-patient blood pressure since admission has been soft and home medications held for now to have enough room for the beta-ivania for rate control. Management of rest of the medical conditions as per primary team and other consultants. Thank you for the consult and allowing me to participate in the care of the patient. Cardiology will continue to follow. Leon Jeter M.D. Interventional Cardiology Time Spent With Patient Time: Total time spent is greater than 50% in coordination of care (as documented) at patient's floor/unit and/or counseling patient:
[2024-07-25] MEDS: AMIODARONE HCL 200 MG TABLET PO ×2 (14:16→22:53)
[2024-07-25] MEDS: AMIODARONE 360 MG IVPB 360 MG/200 ML BAG 16.667 MG IV (14:17)
[2024-07-25] MEDS: FLUCONAZOLE/NS 400 MG IVPB 400 MG/200 ML BAG 100 MG IV (22:54)
[2024-07-26] VITALS (15 sets, daily range): BP systolic 91–130; BP diastolic 68–84; PULSE 99–140; RESP 19–97; TEMP 36.1–36.7; O2SAT 93–97; BMI 18.6; BMI 12.0
[2024-07-26] MEDS: AMIODARONE 360 MG IVPB 360 MG/200 ML BAG 16.667 MG IV (03:50)
[2024-07-26 05:34] LABS: Basophils # (Auto) 0.1 Thou/mm3 (0.0-0.2); Basophils % (Auto) 1 % (0-2.5); Eosinophils # (Auto) 0.1 Thou/mm3 (0.0-0.5); Eosinophils % (Auto) 1 % (0-10); Hematocrit 38.9 % (36.0-46.0); Hemoglobin 12.9 g/dL (12.0-16.0); Immature Granulocytes % (Auto) 2 % (0-0); Immature Granulocytes Auto 0.14 Thou/mm3 (0.00-0.00); Lymphocytes % (Auto) 22 % (10-50); Mean Corpuscular HGB Conc 33.2 g/dl (31.0-37.0); Mean Corpuscular Hemoglobin 28.9 pg (25.0-35.0); Mean Corpuscular Volume 87 fL (80-100); Monocytes # (Auto) 0.8 Thou/mm3 (0.0-0.8); Monocytes % (Auto) 9 % (0-12); Neutrophils # (Auto) 6.3 Thou/mm3 (1.8-7.7); Neutrophils % (Auto) 66 % (37-80); Nucleated Red Blood Cell % 0 /100 WBC (0); Platelet Count 372 Thou/mm3 (140-440); RDW Standard Deviation 43.9 fL (36.4-46.3); Red Blood Count 4.47 Miln/mm3 (4.00-5.20); White Blood Count 9.5 Thou/mm3 (3.6-11.0)
[2024-07-26 06:11] LABS: Alanine Aminotransferase 13 U/L (10-49); Albumin, Serum 3.2 gm/dL (3.4-4.8); Albumin/Globulin Ratio 1.3 (1.2-2.2); Alkaline Phosphatase 80 U/L (46-116); Anion Gap 12 (7-16); Aspartate Amino Transferase 15 U/L (0-34); BUN/Creatinine Ratio 23 Ratio (12-20); Bilirubin,Total 0.3 mg/dL (0.3-1.2); Blood Urea Nitrogen 16 mg/dL (9-23); Calcium 8.3 mg/dL (8.3-10.6); Calcium (Corrected) 8.9 mg/dL (8.5-10.1); Carbon Dioxide 18.9 mMol/L (20.0-31.0); Chloride 109 mMol/L (98-107); Creatinine (Component) 0.7 mg/dL (0.6-1.3); Estimated Creatinine Clearance 42.8 mL/min (>60); Globulin 2.4 gm/dL (2.3-3.5); Glucose 150 mg/dL (74-106); Magnesium 1.8 mg/dL (1.6-2.6); Osmolality,Calculated 283 (275-295); Phosphorous 2.5 mg/dL (2.4-5.1); Potassium 3.2 mMol/L (3.4-5.1); Sodium 140 mMol/L (136-145); Total Protein 5.6 gm/dL (5.7-8.2); eGFR > 60 See Note
[2024-07-26] MEDS: AMIODARONE 360 MG IVPB 360 MG/200 ML BAG 30 MG IV (08:44)
[2024-07-26] MEDS: POTASSIUM CHLORIDE 20 mEq TABCR 40 MEQ PO (09:11)
[2024-07-26] MEDS: guaiFENesin/DM TABLET 1 EACH PO ×2 (09:12→20:20)
[2024-07-26] MEDS: APIXABAN 2.5 MG TABLET PO ×2 (09:13→20:20)
[2024-07-26] MEDS: BusPIRone HCL 5 MG TABLET 15 MG PO ×2 (09:24→20:20)
[2024-07-26] MEDS: AMIODARONE HCL 200 MG TABLET PO ×2 (09:25→20:20)
[2024-07-26] MEDS: METOPROLOL SUCCINATE XL 25 MG TABCR PO ×2 (09:27→13:07)
[2024-07-26] MEDS: SENNA TABLET 1 TAB PO (09:27)
[2024-07-26] MEDS: PANTOPRAZOLE INJ 40 MG VIAL IVP (09:27)
[2024-07-26] MEDS: cefTRIAXone/D5w 1gm IV premix 50 ML IV (09:29)
[2024-07-26] MEDS: Magnesium Sulfate 2 GM Ivpb 2 GM/50 ML BAG IV (09:29)
--- NOTE | 2024-07-26 09:47 | PD.RESPRO ---
Documentation for date of: 07/26/24 Subjective Subjective Interval history: Patient seen and examined at the bedside. No acute events overnight. She was treated with diltiazem drip , then transitioned to metoprolol XL but continued to have AFib, therefore started on amiodarone drip on 07/24 overnight 07/26 : she remains in atrial fibrillation with RVR while on amiodarone drip, along with p.o. amiodarone 200mg BID. K 3.2 and Mg 1.8 this morning Patient is a lot more alert and following commands, she passed swallow evaluation and is tolerating diet comfortably. Metoprolol XL increased from 25 -> 50mg daily, will monitor as BP permits. Repleted with 40mEq KCL + 2g MG ECHO : EF 25 -30% with moderately decreased RV function. Diastolic dysfunction. Mild PAH, RVSP of 40 mmHg. Moderate MAC, Moderate eccentric MR, Mild biatrial dilatation. Per cardio recommendations, will need to be on GDMT with beta-ivania, JACOB, spironolactone but given hypotension, will hold off for now. 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 Will continue Eliquis 2.5 mg twice daily for anticoagulation. CHADSVASC = 5 and HASBLED = 3 Continue strict input output, daily weights and dysphagia diet. [employer] consulted for recommendations for BMI 18 and chronic malnutrition. Exam Vital Signs Temp Pulse Resp BP Pulse Ox O2 Del Method O2 Flow Rate 97.3 F 133 H 25 H 109/78 93 L Room Air 4 07/26/24 08:00 07/26/24 09:27 07/26/24 08:00 07/26/24 09:27 07/26/24 08:00 07/26/24 08:00 07/24/24 08:22 Narrative Exam Constitutional Alert, oriented x2, baseline dementia and comfortable on RA HEENT Vision grossly intact. Patent nares. Trachea midline. Respiratory Chest normal on inspection and mild congestion on auscultation. Cardiovascular S1 and S2 audible, RRR. No murmurs or carotid bruit. No gross JVD. Abdominal Soft and non tender to palpation in all quadrants. BS + Genitourinary No bladder tenderness, no flank pain. Normal to palpation. Musculoskeletal Extremities tone within normal limits. No LE edema. Neurological CN II - XII grossly intact. Extremity motor and sensation grossly intact. Skin Warm, dry and intact. No apparent lesions. Senile purpura Psychiatric Patient has a good affect, is cooperative. Objective Labs 07/26/24 05:09 07/27/24 07:41 Labs: Laboratory Results - last 24 hr 07/26/24 05:09 WBC 9.5 RBC 4.47 Hgb 12.9 D Hct 38.9 MCV 87 MCH 28.9 MCHC 33.2 RDW Std Deviation 43.9 Plt Count 372 Neut % (Auto) 66 Lymph % (Auto) 22 [place] % (Auto) 9 Eos % (Auto) 1 Baso % (Auto) 1 Neut # (Auto) 6.3 Lymph # (Auto) 2.0 [place] # (Auto) 0.8 Eos # (Auto) 0.1 Baso # (Auto) 0.1 Immature Gran # (Auto) 0.14 H Absolute Nucleated RBC 0.00 Immature Gran % 2 H Nucleated RBC % 0 Sodium 140 Potassium 3.2 L D Chloride 109 H Carbon Dioxide 18.9 L Anion Gap 12 BUN 16 Creatinine 0.7 Estim Creat Clear Calc 42.8 L eGFR > 60 BUN/Creatinine Ratio 23 H Glucose 150 H Calculated Osmolality 283 Calcium 8.3 Corrected Calcium 8.9 Phosphorus 2.5 Magnesium 1.8 Total Bilirubin 0.3 AST 15 ALT 13 Alkaline Phosphatase 80 Total Protein 5.6 L Albumin 3.2 L Globulin 2.4 Albumin/Globulin Ratio 1.3 Quality Measures Quality Measures none Advance care planning discussed with:: patient Assessment & Plan Assessment Current Active Medications: Generic Name Dose Route Start Last Admin Trade Name Teto PRN Reason Stop Dose Admin Acetaminophen 650 mg 07/24/24 04:51 Acetaminophen 325 Mg Tablet PO 08/23/24 04:50 Q6H PRN Fever >101.5 Acetaminophen 650 mg 07/24/24 04:51 Acetaminophen 325 Mg Tablet PO 08/23/24 04:50 Q6H PRN PAIN SCALE 1-3 (mild Albuterol/Ipratropium 3 ml 07/25/24 12:36 Albuterol/Ipratropium (Duoneb) Rt Ester 3 Ml Nebu INH 08/24/24 14:59 Q4HRRT PRN wheeze Amiodarone HCl 200 mg 07/25/24 14:00 07/26/24 09:25 Amiodarone Hcl 200 Mg Tablet PO 08/24/24 13:59 200 mg BID JOSE Administration Apixaban 2.5 mg 07/24/24 21:00 07/26/24 09:13 Apixaban 2.5 Mg Tablet PO 08/23/24 20:59 2.5 mg BID JOSE Administration Buspirone HCl 15 mg 07/24/24 09:00 07/26/24 09:24 Buspirone Hcl 5 Mg Tablet PO 08/23/24 08:59 15 mg BID JOSE Administration Guaifenesin/Dextromethorphan 1 each 07/25/24 10:15 07/26/24 09:12 Guaifenesin/Dm Tablet PO 08/24/24 10:14 1 each BID JOSE Administration Doxycycline Hyclate 100 mg/ 100 mls @ 100 mls/hr 07/24/24 09:00 07/25/24 22:53 Sodium Chloride IV 07/31/24 08:59 100 mls/hr BID JOSE Administration Fluconazole 400 mg in 200 mls @ 100 mls/hr 07/24/24 17:23 07/25/24 22:54 Diflucan/Ns Ivpb IV 07/31/24 17:22 100 mls/hr QDAY@2100 JOSE Administration Ceftriaxone Sodium/Dextrose 50 mls @ 100 mls/hr 07/25/24 10:33 07/26/24 09:29 Rocephin/D5w 1gm Iv Premix IV 08/01/24 10:32 100 mls/hr QDAY JOSE Administration Magnesium Sulfate 2 gm in 50 mls @ 25 mls/hr 07/26/24 07:48 07/26/24 09:29 Magnesium Sulfate Ivpb IV 07/26/24 09:47 25 mls/hr X1 ONE Administration Amiodarone HCl/Dextrose 360 mg in 200 mls @ 30 mls/hr 07/26/24 08:30 07/26/24 08:44 Nexterone Ivpb IV 07/26/24 15:09 30 mls/hr .[id number] JOSE Administration Protocol Metoprolol Succinate 25 mg 07/26/24 09:00 07/26/24 09:27 Metoprolol Succinate Xl 25 Mg Tabcr PO 08/25/24 08:59 25 mg QDAY JOSE Administration Ondansetron HCl 4 mg 07/24/24 04:51 Ondansetron Inj 2 Mg/Ml Inj 2 Ml IV 08/23/24 04:50 Q6H PRN NAUSEA OR VOMITING Protocol Pantoprazole Sodium 40 mg 07/24/24 09:00 07/26/24 09:27 Pantoprazole Inj 40 Mg Vial IVP 08/23/24 08:59 40 mg QDAY JOSE Administration Sennosides 1 tab 07/24/24 09:00 07/26/24 09:27 Senna Tablet PO 08/23/24 08:59 1 tab QDAY JOSE Administration Protocol Plan Mr. Ryder is a 79-year-old female with past medical history of hypertension, GI bleed secondary to Dahlia-Ob[place] tear, GERD, alcohol use disorder, unspecified psych disorder who was BIBA from [facility] to the [facility] ED on 07/23/2024 for acute hypoxic respiratory failure with sepsis secondary to pneumonia and A-fib with RVR. Acute hypoxic respiratory failure Sepsis Secondary to Left base Hosp-acquired PNA Left pleural effusion Coccidioides IgM positive Patient was initially diagnosed with pneumonia, parapneumonic effusion and [facility] facility, was started on oral levofloxacin, completed 6 out of 7-day course with worsening symptoms and hypoxemia was eventually sent to ER via EMS, patient SpO2 88% on room air, noncompliant with oxygen therapy. Patient has cough and shortness of breath, - CURB 65 = 2 points, moderate risk 6.8% 30-day mortality group - PSI/port score = 117 points risk class IV 8.2 to 9.3% mortality - Flu, COVID, RSV : negative - CXR : significant for left base pneumonia, preliminary - CTA negative for PE shows bilateral parapneumonic effusion, cardiomegaly and concern of CHF. - 07/24 : MRSA nares : negative - 07/25 : LT pleural effusion not amendable to thoracentesis, per IR - 07/26 : No growth for Blood cultures from 07/23 Plan: - On IV Fluconazole 400 mg daily for ++Cocci (07/24 - - On IV Doxycycline (07/24 - - Started IV Rocephin (07/25 - - DuoNebs treatment as needed - Mucinex BID for congestion Atrial fibrillation with RVR History of HFrEF 25-30% , systolic and diastolic function NSTEMI type II, likely demand ischemia - resolved Hx of Primary HTN, now hypotensive - EKG: A. Fib with RVR , HR 130-190s - Type: chronic, persistent - Intermittent episodes of palpitations with spontaneous return to sinus - [id number] score 4 points, BNP 371 - HAS-BLED:3 points ; Patient does have history of Dahlia-[place] tear and GI bleed. Bleeding risk, however patient does need anticoagulation for A-fib with RVR, risk-benefit situation here - TSH 1.48, LDL 77, total cholesterol 134 - A1c : 5.4% - Patient does not appear to be in heart failure at this time, however will monitor. She received 750cc bolus since admission for low MAP. - Consult to cardiology, appreciate recommendations - NYHA Class III at baseline - 07/25 ECHO : Normal LV size and wall thickness.Severely decreased LV function. Estimated EF 25-30 %. Diastolic dysfunction present but cannot grade due to Afib RV is normal in size. RV systolic function is moderately decreased. Estimated RVSP, 37 mmHg. RAP 15. Mild AV sclerosis without stenosis. Mild AI. Moderate eccentroc MR and moderate eccentric TR. Mild biatrial dilation. - Patient does not appear to be in heart failure at this time, however will monitor. She received 750cc bolus since admission for low MAP. - Troponin peaked at 0.768 - 07/26 : K 3.2 and Mg 1.8 this morning Plan: - Cardiology is following, recommendations appreciated - Continue finishing Amio drip as it was started overnight, and will continue with Amio p.o. - Rhythm control: Amiodarone 200 mg PO BiD - Rate control: Metoprolol 25 -->50 mg PO OD - Anticoagulation: Eliquis 5 mg PO BiD - Repleted with 40mEq KCL + 2g MG. Keep potassium > 4, magnesium > 2 - Continue to monitor Telemetry Polycythemia Thrombocytosis Mild transaminitis - resolved Plan: ?Trend CBC, CMP FARTUN Plan: ? Resumed home Buspar 15 mg twice daily Health Maintenance Disposition: Telemetry DVT prophylaxis: Eliquis GI prophylaxis: Pantoprazole 40 mg daily Diet: Dysphagia 3 CODE STATUS: Full code Plan of care discussed with attending Jose Miguel Melara M.D. PGY2 Attending Provider Attestation/Addendum I reviewed labs, imaging, EKG, home medications and prior available records. Face to face evaluation was performed by me. I have personally examined the patient and discussed assessment and plan with the IM team. I reviewed the resident note and agree with the plan with exceptions as below. Acute hypoxic respiratory failure: In the setting of left lower lobe pneumonia. Cocci pneumonia is positive. Started ceftriaxone/doxycycline. Started fluconazole Left pleural effusion: Consult IR for pleurocentesis given the possible associated pneumonia: Insufficient fluids for drainage Atrial fibrillation with rapid ventricular response: Rate is uncontrolled. Continue IV amnio. Increased metoprolol. Ordered echocardiogram that showed severely reduced EF of 25 to 30%. Non-STEMI: Likely in the setting of hypoxia and A-fib with RVR. Troponin peaked. Management as above. Debility: PT evaluation
--- NOTE | 2024-07-26 10:13 | PD.RESPRO ---
Documentation for date of: 07/26/24 Subjective Subjective Interval history: 07/26: No acute overnight events are reported .patient seen and examined at bedside this morning. Patient continues to yell no to most questions asked. Patient denies any chest pain chest pressure. Physical therapy is in the room working with her to help her ambulate. Patient continues to be in A-fib with RVR heart rate is in 130s to 140s electronic device monitor is reviewed maximum heart rate was 142 and minimum was 122 in the last 12 hours. Patient's potassium is 3.2 today. Exam Vital Signs Temp Pulse Resp BP Pulse Ox O2 Del Method O2 Flow Rate 97.3 F 133 H 25 H 109/78 93 L Room Air 4 07/26/24 08:00 07/26/24 09:27 07/26/24 08:00 07/26/24 09:27 07/26/24 08:00 07/26/24 08:00 07/24/24 08:22 Narrative Exam GENERAL: A&Ox1. Awake, frail elderly female, minimally cooperative NEURO: no focal neurological deficits noted HEENT: Atraumatic, Normocephalic. mucous membranes moist. Eyes open, symmetrical, & clear HEART: Normal Heart Sounds LUNGS: Clear to auscultation with no wheezing or crackles. ABDOMEN: soft, non-distended, non-tender, bowel sounds heard, no guarding or rebound tenderness SKIN: No Rash or ecchymoses EXTREMITIES: No edema, tenderness, able to move all 4 extremities, pedal pulses palpated Objective Labs 07/27/24 07:41 07/27/24 07:41 Labs: Laboratory Results - last 24 hr 07/26/24 05:09 WBC 9.5 RBC 4.47 Hgb 12.9 D Hct 38.9 MCV 87 MCH 28.9 MCHC 33.2 RDW Std Deviation 43.9 Plt Count 372 Neut % (Auto) 66 Lymph % (Auto) 22 Hopkins % (Auto) 9 Eos % (Auto) 1 Baso % (Auto) 1 Neut # (Auto) 6.3 Lymph # (Auto) 2.0 Hopkins # (Auto) 0.8 Eos # (Auto) 0.1 Baso # (Auto) 0.1 Immature Gran # (Auto) 0.14 H Absolute Nucleated RBC 0.00 Immature Gran % 2 H Nucleated RBC % 0 Sodium 140 Potassium 3.2 L D Chloride 109 H Carbon Dioxide 18.9 L Anion Gap 12 BUN 16 Creatinine 0.7 Estim Creat Clear Calc 42.8 L eGFR > 60 BUN/Creatinine Ratio 23 H Glucose 150 H Calculated Osmolality 283 Calcium 8.3 Corrected Calcium 8.9 Phosphorus 2.5 Magnesium 1.8 Total Bilirubin 0.3 AST 15 ALT 13 Alkaline Phosphatase 80 Total Protein 5.6 L Albumin 3.2 L Globulin 2.4 Albumin/Globulin Ratio 1.3 Quality Measures Quality Measures none Advance care planning discussed with:: patient Assessment & Plan Assessment Current Active Medications: Generic Name Dose Route Start Last Admin Trade Name Freq PRN Reason Stop Dose Admin Acetaminophen 650 mg 07/24/24 04:51 Acetaminophen 325 Mg Tablet PO 08/23/24 04:50 Q6H PRN Fever >101.5 Acetaminophen 650 mg 07/24/24 04:51 Acetaminophen 325 Mg Tablet PO 08/23/24 04:50 Q6H PRN PAIN SCALE 1-3 (mild Albuterol/Ipratropium 3 ml 07/25/24 12:36 Albuterol/Ipratropium (Duoneb) Rt Ester 3 Ml Nebu INH 08/24/24 14:59 Q4HRRT PRN wheeze Amiodarone HCl 200 mg 07/25/24 14:00 07/26/24 09:25 Amiodarone Hcl 200 Mg Tablet PO 08/24/24 13:59 200 mg BID JOSE Administration Apixaban 2.5 mg 07/24/24 21:00 07/26/24 09:13 Apixaban 2.5 Mg Tablet PO 08/23/24 20:59 2.5 mg BID JOSE Administration Buspirone HCl 15 mg 07/24/24 09:00 07/26/24 09:24 Buspirone Hcl 5 Mg Tablet PO 08/23/24 08:59 15 mg BID JOSE Administration Guaifenesin/Dextromethorphan 1 each 07/25/24 10:15 07/26/24 09:12 Guaifenesin/Dm Tablet PO 08/24/24 10:14 1 each BID JOSE Administration Doxycycline Hyclate 100 mg/ 100 mls @ 100 mls/hr 07/24/24 09:00 07/25/24 22:53 Sodium Chloride IV 07/31/24 08:59 100 mls/hr BID JOSE Administration Fluconazole 400 mg in 200 mls @ 100 mls/hr 07/24/24 17:23 07/25/24 22:54 Diflucan/Ns Ivpb IV 07/31/24 17:22 100 mls/hr QDAY@2100 JOSE Administration Ceftriaxone Sodium/Dextrose 50 mls @ 100 mls/hr 07/25/24 10:33 07/26/24 09:29 Rocephin/D5w 1gm Iv Premix IV 08/01/24 10:32 100 mls/hr QDAY JOSE Administration Amiodarone HCl/Dextrose 360 mg in 200 mls @ 30 mls/hr 07/26/24 08:30 07/26/24 08:44 Nexterone Ivpb IV 07/26/24 15:09 30 mls/hr .[id number] JOSE Administration Protocol Metoprolol Succinate 25 mg 07/26/24 09:00 07/26/24 09:27 Metoprolol Succinate Xl 25 Mg Tabcr PO 08/25/24 08:59 25 mg QDAY JOSE Administration Ondansetron HCl 4 mg 07/24/24 04:51 Ondansetron Inj 2 Mg/Ml Inj 2 Ml IV 08/23/24 04:50 Q6H PRN NAUSEA OR VOMITING Protocol Pantoprazole Sodium 40 mg 07/24/24 09:00 07/26/24 09:27 Pantoprazole Inj 40 Mg Vial IVP 08/23/24 08:59 40 mg QDAY JOSE Administration Sennosides 1 tab 07/24/24 09:00 07/26/24 09:27 Senna Tablet PO 08/23/24 08:59 1 tab QDAY JOSE Administration Protocol Plan Ms. Ryder is a 79 year old female with past medical history significant for history of HTN, Hx of a-fib noted on EKG from 2021 and GI bleed secondary to [place] tear in 2021 likely related to alcohol use disorder brought by ambulance due to low oxygen saturations at the nursing facility. Pt is admitted to the hospital for IV antibiotics and diltiazam drip as pt was found to be in A-fib with RVR. # Sepsis secondary to #Hospital-acquired pneumonia # Pleural effusions -Chest CTA is evident of moderate left and mild right pleural effusions as well as pneumonia on the left base -Per primary hospitalist team patient is started on IV antibiotics with doxycycline 100 Mg IV twice daily #Paroxysmal A-fib with RVR -EKG from 2021 showed patient has history of A-fib and patient home medication include metoprolol 25 Mg daily for rate control -Patient is started on diltiazem drip 10 Mg/hr in the ED -Patient will be transition to metoprolol 100 Mg daily or 50 Mg twice daily and 2 hours after metoprolol is given patient's diltiazem drip to be turned off. -[id number] score 4 points (age greater than 75, female, hypertension history).HAS-BLED score for major bleeding risk for this patient is 3 points. Pt is started on Eliquis 2.5 mg twice daily for anticoagulation. -Keep potassium more than 4, magnesium more than 2 at all times -echocardiogram on 07/25/2024 showed severely decreased LV function with an EF of 25 to 30% with moderately decreased RV function. Diastolic dysfunction present but cannot breathe because of A-fib. Mild PAH with estimated RVSP of 40 mmHg. Moderate MAC along with mild to moderate aortic valve sclerosis without stenosis. Moderate eccentric MR as well as TR. Mild AI and mild biatrial dilatation. -Patient has evidence of severe systolic dysfunction along with moderate RV dysfunction, diastolic dysfunction and moderate valvular heart disease. Patient does not appear to be fluid overloaded therefore will hold started diueretics -Recommend to also start patient on 200 mg twice daily of amiodarone and continue metoprolol XL 50 mg once daily if blood pressure is better. No Cardizem given the LV systolic dysfunction. Based on the echo findings #severe biventricular and combined systolic diastolic congestive heart failure (echo findings on 07/25) -Recommend strict input output, daily weights and 2 g sodium diet. Patient will need to be on goal-directed medical therapy with beta-ivania, JACOB inhibitor's as well as spironolactone but patient is hypotensive as noted above and will hold off on the GDMT for now and can be reintroduced one by one but recommend to start with beta-ivania for rate management. #elevated troponins- likely in the setting of NSTEMI type ll (demand ischemia) -on initial presentation patient had elevated troponins at 0.768 which have now downtrended to 0.574. No further troponin trending is needed. Pt does not exhibit any symptoms of [place], Pt denies chest pain, or pressure. -Recommend aspirin if tolerated along with statin and beta-ivania. # Primary hypertension -Patient has a history of primary hypertension for which patient takes amlodipine 5 mg daily however on arrival in the ED patient blood pressure is 104/79 and today patient's blood pressure is 119/83 therefore will continue to hold home antihypertensive until permissible Assessment and plan discussed with my attending physician Dr. Corona Cruz (PGY-1)- Internal medicine resident Attending Provider Attestation/Addendum A 79-year-old female who resident of [facility] with a past medical history of essential hypertension, paroxysmal atrial fibrillation noted on EKG in 2021, history of GI bleed secondary to [place] tear, history of alcohol use disorder, ex-smoker as per documentation but patient denies, GERD and unspecified psych disorder was brought into the emergency department for further evaluation of hypoxia and low saturations and worsening cough over the last few days. Patient was found to have acute respiratory failure secondary to possible Pneumonia along with a parapneumonic effusion and the suspicion of empyema. Patient was noted to be in atrial fibrillation with RVR on admission with a heart rate of around 150 bpm -180 bpm. EKG did show atrial fibrillation with RVR but no evidence of any acute ST-T changes. Initial vitals in the emergency department showed a blood pressure of 104/70 mmHg, heart rate of 1 6 6/min respirate rate of 22, temp of 97.7, saturation of 92% on oxygen by nasal cannula. WBC elevated 15 and 8 with left shift and hemoglobin 16.3 platelets 460, glucose 196, BNP 371 troponin was 0.768. UA was negative flu negative RSV negative. Chest x-ray showed significant left base pneumonia and CTA chest was also performed which showed no evidence of any pulmonary embolism but showed left base pneumonia, mild heart failure and moderate left and mild right pleural effusions. After patient was diagnosed with pneumonia at [facility] and patient was on levofloxacin for 7 days. Denies any kind of chest pain chest pressure or other cardiac complaints except for the shortness of breath on the acute hypoxic respiratory failure. Cardiology consulted for atrial fibrillation with atrial fibrillation with RVR Assessment and plan: 1. Acute hypoxic respiratory failure in the setting of pneumonia along with parapneumonic effusions. 2. Sepsis secondary to the pneumonia 3. Paroxysmal atrial fibrillation with RVR in the setting of sepsis and pneumonia and hypoxic respiratory failure 4. 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 Elevated troponins-NSTEMI type II due to supply/demand mismatch with A-fib with RVR 6. Community-acquired pneumonia-complicated 7. Parapneumonic effusions 8. Essential hypertension 9. History of significant alcohol use disorder 10. Previous history of GI bleed secondary to [place] tear 11. GERD 12. Unspecified psych disorder with possible underlying mild to moderate dementia Patient with paroxysmal atrial fibrillation with RVR but patient unaware of the same. Previous EKGs in 2021 showed the same. Patient came in with atrial fibrillation with RVR with heart rate of around 160s beat per minute. Patient was started on diltiazem bolus as well as drip and is at 10 mg/h. Heart rate appears to be well-controlled between 80-100 bpm. Patient does not have any history of COPD and will start the patient on metoprolol XL 100 mg once daily or 50 mg twice daily blood pressure from the lab. Recommend to stop the diltiazem drip 2 hours after the metoprolol was given. Patient chads Vascor is elevated and was started on heparin drip for anticoagulation and can be eventually transition to Eliquis. Weight is less than 60 kg and her GFR is also less than 60. Patient can be started on Eliquis 2.5 mg twice daily for anticoagulation. Will continue to uptitrate metoprolol patient up ectasia. Keep potassium greater than 4 magnesium greater than 2.0 at all times. 07/26/2024 Overnight events on 07/24/24 reviewed and patient apparently was in atrial fibrillation with RVR and patient was started on amiodarone drip for rate control as patient was hypotensive. She did tolerate the diltiazem drip and then was transition to metoprolol XL but patient became hypotensive overnight and could be worsening sepsis. Recommend to continue amiodarone drip for now for rate control but patient's heart rate is still in the 140 to 150 bpm Recommend to also start patient on 200 mg twice daily of amiodarone and continue metoprolol XL 50 mg once daily if blood pressure is better. No Cardizem given the LV systolic dysfunction. Recommend additional 50 mg metprolol XL today for better rate control Based on the echo findings at least moderate LV systolic dysfunction and also LA dilatation possibly due to tachycardia induced cardiomyopathy from poor rate control for a long time. Eliquis 2.5 mg twice daily for anticoagulation. ChadsVascor was elevated at 5 and has-bled score is 3 Recommend aggressive treatment of the sepsis. Regarding her severe biventricular and combined systolic diastolic congestive heart failure Echo completed on 07/25/2024 showed severely decreased LV function with an EF of 25 to 30% with moderately decreased RV function. Diastolic dysfunction present but cannot grade because of A-fib. Mild PAH with estimated RVSP of 40 mmHg. Moderate MAC along with mild to moderate aortic valve sclerosis without stenosis. Moderate eccentric MR as well as TR. Mild AI and mild biatrial dilatation. Patient has evidence of severe systolic dysfunction along with moderate RV dysfunction, diastolic dysfunction and moderate valvular heart disease. Patient does not appear to be fluid overloaded at the present point of time. 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 Recommend strict input output, daily weights and 2 g sodium diet. Patient will need to be on goal-directed medical therapy with beta-ivania, JACOB inhibitor's as well as spironolactone but patient is hypotensive as noted above and will hold off on the GDMT for now and can be reintroduced one by one but recommend to start with beta-ivania for rate management. Mildly elevated troponins at 0.768 and downtrending to 0.57. Patient denies any chest pain chest pressure or other cardiac complaints at limited historian because of her possible underlying mild dementia. EKG did not show any acute ST changes or history of any ischemia. Recommend no further troponins for now as the troponin elevation is secondary to type II NSTEMI in the setting of supply/demand mismatch. Echocardiogram reviewed and showed severe LV dysfunction with an EF of 25 to 30% but global hypokinesis and there was no evidence of any particular regional wall motion abnormalities. Overall picture appears to be tachycardia induced cardiomyopathy with is her uncontrolled longstanding atrial fibrillation with RVR. Recommend aspirin if tolerated along with statin and beta-ivania. Patient's weight is only 40 kg patient appears to be malnourished and also has possible mild to moderate dementia at baseline with multiple comorbidities as noted above. Recommend primary team to discuss the goals of care with family or next of kin. Essential hypertension-patient blood pressure since admission has been soft and home medications held for now to have enough room for the beta-ivania for rate control. Management of rest of the medical conditions as per primary team and other consultants. Thank you for the consult and allowing me to participate in the care of the patient. Cardiology will continue to follow. Leon Jeter M.D. Interventional Cardiology
[2024-07-26] MEDS: DOXYCYCLINE INJ 100 MG in SODIUM CHLORIDE 0.9% (P) 100 ML IV ×2 (10:34→20:21)
--- NOTE | 2024-07-26 17:30 | PC.PT ---
PT eval only. Patient reports she has not been ambulatory for many years and does not participate in PT at her facility. Patient is currently at her baseline.
[2024-07-26] MEDS: FLUCONAZOLE/NS 400 MG IVPB 400 MG/200 ML BAG 100 MG IV (20:20)
[2024-07-27] VITALS (11 sets, daily range): BP systolic 99–124; BP diastolic 77–90; PULSE 104–130; RESP 19–97; TEMP 36.1–36.8; O2SAT 91–97; BMI 18.1
[2024-07-27 08:29] LABS: Basophils # (Auto) 0.1 Thou/mm3 (0.0-0.2); Basophils % (Auto) 1 % (0-2.5); Eosinophils % (Auto) 0 % (0-10); Hematocrit 42.9 % (36.0-46.0); Hemoglobin 14.3 g/dL (12.0-16.0); Immature Granulocytes % (Auto) 1 % (0-0); Immature Granulocytes Auto 0.11 Thou/mm3 (0.00-0.00); Lymphocytes % (Auto) 21 % (10-50); Mean Corpuscular HGB Conc 33.3 g/dl (31.0-37.0); Mean Corpuscular Hemoglobin 29.4 pg (25.0-35.0); Mean Corpuscular Volume 88 fL (80-100); Monocytes % (Auto) 10 % (0-12); Neutrophils # (Auto) 6.3 Thou/mm3 (1.8-7.7); Neutrophils % (Auto) 66 % (37-80); Nucleated Red Blood Cell % 0 /100 WBC (0); Platelet Count 404 Thou/mm3 (140-440); RDW Standard Deviation 46.4 fL (36.4-46.3); Red Blood Count 4.86 Miln/mm3 (4.00-5.20); White Blood Count 9.5 Thou/mm3 (3.6-11.0)
[2024-07-27 08:31] LABS: Alanine Aminotransferase 18 U/L (10-49); Albumin, Serum 3.5 gm/dL (3.4-4.8); Anion Gap 11 (7-16); Aspartate Amino Transferase 25 U/L (0-34); BUN/Creatinine Ratio 24 Ratio (12-20); Bilirubin,Total 0.3 mg/dL (0.3-1.2); Blood Urea Nitrogen 19 mg/dL (9-23); Calcium 8.8 mg/dL (8.3-10.6); Calcium (Corrected) 9.2 mg/dL (8.5-10.1); Carbon Dioxide 21.4 mMol/L (20.0-31.0); Chloride 111 mMol/L (98-107); Creatinine (Component) 0.8 mg/dL (0.6-1.3); Globulin 2.4 gm/dL (2.3-3.5); Glucose 126 mg/dL (74-106); Osmolality,Calculated 289 (275-295); Phosphorous 2.9 mg/dL (2.4-5.1); Potassium 4.4 mMol/L (3.4-5.1); Sodium 143 mMol/L (136-145); Total Protein 5.9 gm/dL (5.7-8.2); eGFR > 60 See Note
[2024-07-27 08:32] LABS: Albumin/Globulin Ratio 1.5 (1.2-2.2); Alkaline Phosphatase 115 U/L (46-116)
[2024-07-27] MEDS: DOXYCYCLINE INJ 100 MG in SODIUM CHLORIDE 0.9% (P) 100 ML IV ×2 (09:07→20:31)
[2024-07-27] MEDS: cefTRIAXone/D5w 1gm IV premix 50 ML IV (09:07)
[2024-07-27] MEDS: guaiFENesin/DM TABLET 1 EACH PO ×2 (09:08→20:31)
[2024-07-27] MEDS: AMIODARONE HCL 200 MG TABLET PO ×3 (09:08→20:31)
[2024-07-27] MEDS: BusPIRone HCL 5 MG TABLET 15 MG PO ×2 (09:08→20:31)
[2024-07-27] MEDS: APIXABAN 2.5 MG TABLET PO ×2 (09:08→20:31)
[2024-07-27] MEDS: SENNA TABLET 1 TAB PO (09:08)
[2024-07-27] MEDS: METOPROLOL SUCCINATE XL 25 MG TABCR 50 MG PO ×2 (09:08→13:25)
[2024-07-27] MEDS: PANTOPRAZOLE INJ 40 MG VIAL IVP (09:09)
--- NOTE | 2024-07-27 10:03 | ESPR_ITS ---
Documentation for date of: 07/27/24 Subjective Subjective Interval history: HPI limited as patient does not want to answer questions and is a poor historian 07/24/2024: Patient examined at bedside today. Is not experiencing any pain at this time. Telemetry reviewed highest heart rate was in 200s, right now it is at 100s. It is not experiencing any chest pain or shortness of breath. Patient is unable to fully answer a lot of questions as she is a poor historian. Patient is continue with dill drip at this time no complaints at this time 07/25/2024: Patient examined at bedside today. Telemetry reviewed, patient is still in A-fib, heart rate going up to the 170s, rate has been around the 130s, Amio drip started overnight after patient was given Cardizem and remained to be in A-fib with RVR. Patient reports he is not experiencing chest pain, palpitation or shortness of breath. She continues to be a poor historian and seems a bit lethargic. She is still able to answer some questions. BUN/creatinine 9 and 0.6 respectively, potassium 4.1, magnesium 2, white count of 11.3, hemoglobin 14.9. 07/27/2024: Pt examined at bedside today. Telemetry reviewed, patient remains to be in the 130s still in A-fib. Patient reports that she does not want to be examined much today. Does not have any shortness of breath or chest pain. She also just wants to be left alone at this time. Patient has a white count of 9.5, hemoglobin 14.3, 4.4, chloride of 111, BUN/creatinine of 19 and 0.8 respectively, magnesium 2.1, phosphorus 2.9, AST ALT 25 and 18 respectively. No other complaints at this time Exam Vital Signs Temp Pulse Resp BP Pulse Ox O2 Del Method O2 Flow Rate 98.2 F 125 H 21 H 113/81 91 L Room Air 4 07/27/24 08:00 07/27/24 09:08 07/27/24 08:00 07/27/24 09:08 07/27/24 08:00 07/27/24 08:00 07/24/24 08:22 Narrative Exam Limited physical exam as patient does not want to be examined General: AAOx1, elderly lady might have dementia, redish hair, elderly, frail, looks unkempt HEENT: Dry mucous membranes, conjunctiva clear, EOMI, PERRLA, poor dentition, large lesions seen in corner of right eyebrow looks like some possible skin cancer Cardiovascular: S1, S2, radial pulses +2 bilat, tachycardia, irregularly irregular Pulmonary: Difficulty appreciating breath sounds GI: No tenderness to light or deep palpitation, no guarding, rigidity, rebound tenderness or distension Extremities: No presence of trace or pitting edema in lower extremities bilaterally, dorsalis pedis pulses +2 bilaterally Neuro: AAOx1, no focal motor or sensory deficits in the UE or LE bilat Psych: Not very cooperaetive Objective Labs 07/28/24 04:52 07/28/24 07:08 Labs: Laboratory Results - last 24 hr 07/27/24 07:41 WBC 9.5 RBC 4.86 Hgb 14.3 Hct 42.9 MCV 88 MCH 29.4 MCHC 33.3 RDW Std Deviation 46.4 H Plt Count 404 D Neut % (Auto) 66 Lymph % (Auto) 21 [place] % (Auto) 10 Eos % (Auto) 0 Baso % (Auto) 1 Neut # (Auto) 6.3 Lymph # (Auto) 2.0 [place] # (Auto) 1.0 H Eos # (Auto) 0.0 Baso # (Auto) 0.1 Immature Gran # (Auto) 0.11 H Absolute Nucleated RBC 0.00 Immature Gran % 1 H Nucleated RBC % 0 Sodium 143 Potassium 4.4 D Chloride 111 H Carbon Dioxide 21.4 Anion Gap 11 BUN 19 Creatinine 0.8 Estim Creat Clear Calc 38.0 L eGFR > 60 BUN/Creatinine Ratio 24 H Glucose 126 H Calculated Osmolality 289 Calcium 8.8 Corrected Calcium 9.2 Phosphorus 2.9 Total Bilirubin 0.3 AST 25 ALT 18 Alkaline Phosphatase 115 D Total Protein 5.9 Albumin 3.5 Globulin 2.4 Albumin/Globulin Ratio 1.5 Quality Measures Quality Measures none Advance care planning discussed with:: patient Assessment & Plan Assessment Current Active Medications: Generic Name Dose Route Start Last Admin Trade Name Freq PRN Reason Stop Dose Admin Acetaminophen 650 mg 07/24/24 04:51 Acetaminophen 325 Mg Tablet PO 08/23/24 04:50 Q6H PRN Fever >101.5 Acetaminophen 650 mg 07/24/24 04:51 Acetaminophen 325 Mg Tablet PO 08/23/24 04:50 Q6H PRN PAIN SCALE 1-3 (mild Albuterol/Ipratropium 3 ml 07/25/24 12:36 Albuterol/Ipratropium (Duoneb) Rt Ester 3 Ml Nebu INH 08/24/24 14:59 Q4HRRT PRN wheeze Amiodarone HCl 200 mg 07/25/24 14:00 07/27/24 09:08 Amiodarone Hcl 200 Mg Tablet PO 08/24/24 13:59 200 mg BID JOSE Administration Apixaban 2.5 mg 07/24/24 21:00 07/27/24 09:08 Apixaban 2.5 Mg Tablet PO 08/23/24 20:59 2.5 mg BID JOSE Administration Buspirone HCl 15 mg 07/24/24 09:00 07/27/24 09:08 Buspirone Hcl 5 Mg Tablet PO 08/23/24 08:59 15 mg BID JOSE Administration Guaifenesin/Dextromethorphan 1 each 07/25/24 10:15 07/27/24 09:08 Guaifenesin/Dm Tablet PO 08/24/24 10:14 1 each BID JOSE Administration Doxycycline Hyclate 100 mg/ 100 mls @ 100 mls/hr 07/24/24 09:00 07/27/24 09:07 Sodium Chloride IV 07/31/24 08:59 100 mls/hr BID JOSE Administration Fluconazole 400 mg in 200 mls @ 100 mls/hr 07/24/24 17:23 07/26/24 20:20 Diflucan/Ns Ivpb IV 07/31/24 17:22 100 mls/hr QDAY@2100 JOSE Administration Ceftriaxone Sodium/Dextrose 50 mls @ 100 mls/hr 07/25/24 10:33 07/27/24 09:07 Rocephin/D5w 1gm Iv Premix IV 08/01/24 10:32 100 mls/hr QDAY JOSE Administration Metoprolol Succinate 100 mg 07/28/24 09:00 Metoprolol Succinate Xl 25 Mg Tabcr PO 08/27/24 08:59 QDAY JOSE Metoprolol Succinate 50 mg 07/27/24 10:02 Metoprolol Succinate Xl 25 Mg Tabcr PO 07/27/24 10:03 X1 ONE Ondansetron HCl 4 mg 07/24/24 04:51 Ondansetron Inj 2 Mg/Ml Inj 2 Ml IV 08/23/24 04:50 Q6H PRN NAUSEA OR VOMITING Protocol Pantoprazole Sodium 40 mg 07/24/24 09:00 07/27/24 09:09 Pantoprazole Inj 40 Mg Vial IVP 08/23/24 08:59 40 mg QDAY JOSE Administration Sennosides 1 tab 07/24/24 09:00 07/27/24 09:08 Senna Tablet PO 08/23/24 08:59 1 tab QDAY JOSE Administration Protocol Plan Assessment Mr. Ryder is a 79-year-old female with past medical history of hypertension, GI bleed secondary to [place] tear, GERD, alcohol use disorder, unspecified psych disorder who was BIBA from [facility] to the [facility] ED on 07/23/2024 for acute hypoxic respiratory failure with sepsis secondary to pneumonia and A-fib with RVR. #Acute hypoxic respiratory failure #Sepsis secondary to pneumonia, SIRS +3/4, leukocytosis #CAP versus HCAP #Left-sided pleural effusion #Coccidioides IgM positive Patient was initially diagnosed with pneumonia, parapneumonic effusion and [facility], was started on oral levofloxacin, completed 6 out of 7-day course with worsening symptoms and hypoxemia was eventually sent to ER via EMS, patient SpO2 88% on room air, noncompliant with oxygen therapy. Patient has cough and shortness of breath, chest x-ray significant for left base pneumonia, preliminary CTA negative for PE shows bilateral parapneumonic effusion, cardiomegaly and concern of CHF. Curb 65 2 points, moderate risk 6.8% 30-day mortality group, PSI/port score 117 points risk class IV 8.2 to 9.3% mortality. Patient went down for thoracentesis, pleural effusion was not amendable to thoracentesis per IR Will continue with current management to see how patient improves COVID, RSV and flu negative Blood cultures no growth after 2 day MRSA negative Plan: -Will continue with Rocephin and doxycycline at this time -DuoNeb treatment as needed ?Continue with fluconazole 400 mg daily ?Follow-up Coccidioides IgG #Atrial fibrillation with RVR #History of HFrEF with systolic and diastolic function, EF 25 to 30% CHADVASC: 4 points HAS-BLED:3 points Patient does have history of [place] tear and GI bleed Bleeding risk, however patient does need anticoagulation for A-fib with RVR, risk-benefit situation here TSH 1.48 LDL 77, total cholesterol 134 A1c 5.4 Patient does not appear to be in heart failure at this time, however will monitor Patient was on amnio drip previously Rate is not controlled still with Amio 200 mg oral and metoprolol 50 XL, will adjust dosage Plan: ?Metoprolol 100 XL ?Amio 200 mg twice daily po ?Eliquis 2.5 mg twice daily -Consulted cardiology, appreciate recommendations -Strict intake and output, daily weight, fluid restriction 1500 cc -Keep potassium more than 4, magnesium more than 2 #NSTEMI type I versus type II, demand ischemia, resolved Troponin peaked at 0.768 # History of hypertension Blood pressure has been soft we will hold on giving blood pressure medicines at this time Plan: ? Metoprolol 100 XL #Polycythemia #Thrombocytosis Plan: ? Trend with CBC #Mild transaminitis, resolved Plan: ?Trend with CMP # History of FARTUN Plan: ? Resumed home Buspar 15 mg twice daily #Skin lesion, right sided Appears to be chronic, looks like skin cancer Most likely requiring removal rather than biopsy Plan: ?Recommend to follow-up with dermatology outpatient #Health Maintenance Disposition: Telemetry DVT prophylaxis: Eliquis GI prophylaxis: Pantoprazole 40 mg daily Diet: Dysphagia 2 CODE STATUS: Full Patient seen and care discussed with my senior resident, Dr. Senior, and my attending physician, Dr. Brianna Lin, PGY-1 Attending Provider Attestation/Addendum I reviewed labs, imaging, EKG, home medications and prior available records. Face to face evaluation was performed by me. I have personally examined the patient and discussed assessment and plan with the IM team. I reviewed the resident note and agree with the plan with exceptions as below. Acute hypoxic respiratory failure: In the setting of left lower lobe pneumonia. Cocci pneumonia is positive. Started ceftriaxone/doxycycline. Started fluconazole Left pleural effusion: Consult IR for pleurocentesis given the possible associated pneumonia: Insufficient fluids for drainage Atrial fibrillation with rapid ventricular response: Rate is uncontrolled. Continue IV amio. Increased metoprolol. Ordered echocardiogram that showed severely reduced EF of 25 to 30%. Non-STEMI: Likely in the setting of hypoxia and A-fib with RVR. Troponin peaked. Management as above. Debility: PT evaluation
[2024-07-27 11:54] LABS: Magnesium 2.1 mg/dL (1.6-2.6)
--- NOTE | 2024-07-27 12:38 | ESPR_ITS ---
Documentation for date of: 07/27/24 Subjective Subjective Interval history: 05/26: no acute overnight events reported. Pt is seen and examined at bedside this morning. Pt is saturating well on room air, still wheezing however. Pt denies chest pain, pressure, palpitaltions, diziness. Pt states she is just very tired and wants to get rest. Pt's heart rate today remained in 120's. Pt was given 100mg of metoprolol total which seemed Pt was given Exam Vital Signs Temp Pulse Resp BP Pulse Ox O2 Del Method O2 Flow Rate 98.2 F 125 H 21 H 113/81 91 L Room Air 4 07/27/24 08:00 07/27/24 09:08 07/27/24 08:00 07/27/24 09:08 07/27/24 08:00 07/27/24 08:00 07/24/24 08:22 Narrative Exam GENERAL: A&Ox1. Awake, frail elderly female, cooperative but tired NEURO: no focal neurological deficits noted HEENT: Atraumatic, Normocephalic. mucous membranes moist. Eyes open, symmetrical, & clear, large multiple masses on right upper eye HEART: Normal Heart Sounds LUNGS: bilateral wheezing heard on auscultation ABDOMEN: soft, non-distended, non-tender, bowel sounds heard, no guarding or rebound tenderness SKIN: No Rash or ecchymoses EXTREMITIES: No edema, tenderness, able to move all 4 extremities, pedal pulses palpated Objective Labs 07/27/24 07:41 07/27/24 07:41 Labs: Laboratory Results - last 24 hr 07/27/24 07/27/24 07:41 11:24 WBC 9.5 RBC 4.86 Hgb 14.3 Hct 42.9 MCV 88 MCH 29.4 MCHC 33.3 RDW Std Deviation 46.4 H Plt Count 404 D Neut % (Auto) 66 Lymph % (Auto) 21 [place] % (Auto) 10 Eos % (Auto) 0 Baso % (Auto) 1 Neut # (Auto) 6.3 Lymph # (Auto) 2.0 [place] # (Auto) 1.0 H Eos # (Auto) 0.0 Baso # (Auto) 0.1 Immature Gran # (Auto) 0.11 H Absolute Nucleated RBC 0.00 Immature Gran % 1 H Nucleated RBC % 0 Sodium 143 Potassium 4.4 D Chloride 111 H Carbon Dioxide 21.4 Anion Gap 11 BUN 19 Creatinine 0.8 Estim Creat Clear Calc 38.0 L eGFR > 60 BUN/Creatinine Ratio 24 H Glucose 126 H Calculated Osmolality 289 Calcium 8.8 Corrected Calcium 9.2 Phosphorus 2.9 Magnesium 2.1 Total Bilirubin 0.3 AST 25 ALT 18 Alkaline Phosphatase 115 D Total Protein 5.9 Albumin 3.5 Globulin 2.4 Albumin/Globulin Ratio 1.5 Quality Measures Quality Measures none Advance care planning discussed with:: patient Assessment & Plan Assessment Current Active Medications: Generic Name Dose Route Start Last Admin Trade Name Freq PRN Reason Stop Dose Admin Acetaminophen 650 mg 07/24/24 04:51 Acetaminophen 325 Mg Tablet PO 08/23/24 04:50 Q6H PRN Fever >101.5 Acetaminophen 650 mg 07/24/24 04:51 Acetaminophen 325 Mg Tablet PO 08/23/24 04:50 Q6H PRN PAIN SCALE 1-3 (mild Albuterol/Ipratropium 3 ml 07/25/24 12:36 Albuterol/Ipratropium (Duoneb) Rt Ester 3 Ml Nebu INH 08/24/24 14:59 Q4HRRT PRN wheeze Amiodarone HCl 200 mg 07/25/24 14:00 07/27/24 09:08 Amiodarone Hcl 200 Mg Tablet PO 08/24/24 13:59 200 mg BID JOSE Administration Apixaban 2.5 mg 07/24/24 21:00 07/27/24 09:08 Apixaban 2.5 Mg Tablet PO 08/23/24 20:59 2.5 mg BID JOSE Administration Buspirone HCl 15 mg 07/24/24 09:00 07/27/24 09:08 Buspirone Hcl 5 Mg Tablet PO 08/23/24 08:59 15 mg BID JOSE Administration Guaifenesin/Dextromethorphan 1 each 07/25/24 10:15 07/27/24 09:08 Guaifenesin/Dm Tablet PO 08/24/24 10:14 1 each BID JOSE Administration Doxycycline Hyclate 100 mg/ 100 mls @ 100 mls/hr 07/24/24 09:00 07/27/24 09:07 Sodium Chloride IV 07/31/24 08:59 100 mls/hr BID JOSE Administration Fluconazole 400 mg in 200 mls @ 100 mls/hr 07/24/24 17:23 07/26/24 20:20 Diflucan/Ns Ivpb IV 07/31/24 17:22 100 mls/hr QDAY@2100 JOSE Administration Ceftriaxone Sodium/Dextrose 50 mls @ 100 mls/hr 07/25/24 10:33 07/27/24 09:07 Rocephin/D5w 1gm Iv Premix IV 08/01/24 10:32 100 mls/hr QDAY JOSE Administration Metoprolol Succinate 100 mg 07/28/24 09:00 Metoprolol Succinate Xl 25 Mg Tabcr PO 08/27/24 08:59 QDAY JOSE Ondansetron HCl 4 mg 07/24/24 04:51 Ondansetron Inj 2 Mg/Ml Inj 2 Ml IV 08/23/24 04:50 Q6H PRN NAUSEA OR VOMITING Protocol Pantoprazole Sodium 40 mg 07/24/24 09:00 07/27/24 09:09 Pantoprazole Inj 40 Mg Vial IVP 08/23/24 08:59 40 mg QDAY JOSE Administration Sennosides 1 tab 07/24/24 09:00 07/27/24 09:08 Senna Tablet PO 08/23/24 08:59 1 tab QDAY JOSE Administration Protocol Plan Ms. Ryder is a 79 year old female with past medical history significant for history of HTN, Hx of a-fib noted on EKG from 2021 and GI bleed secondary to [place] tear in 2021 likely related to alcohol use disorder brought by ambulance due to low oxygen saturations at the nursing facility. Pt is admitted to the hospital for IV antibiotics and diltiazam drip as pt was found to be in A-fib with RVR. # Sepsis secondary to #Hospital-acquired pneumonia # Pleural effusions -Chest CTA is evident of moderate left and mild right pleural effusions as well as pneumonia on the left base -Per primary hospitalist team patient is started on IV antibiotics with doxycycline 100 Mg IV twice daily #Paroxysmal A-fib with RVR -EKG from 2021 showed patient has history of A-fib and patient home medication include metoprolol 25 Mg daily for rate control -Patient is started on diltiazem drip 10 Mg/hr in the ED -Patient will be transition to metoprolol 100 Mg daily or 50 Mg twice daily and 2 hours after metoprolol is given patient's diltiazem drip to be turned off. -[id number] score 4 points (age greater than 75, female, hypertension history).HAS-BLED score for major bleeding risk for this patient is 3 points. Pt is started on Eliquis 2.5 mg twice daily for anticoagulation. -Keep potassium more than 4, magnesium more than 2 at all times -echocardiogram on 07/25/2024 showed severely decreased LV function with an EF of 25 to 30% with moderately decreased RV function. Diastolic dysfunction present but cannot breathe because of A-fib. Mild PAH with estimated RVSP of 40 mmHg. Moderate MAC along with mild to moderate aortic valve sclerosis without stenosis. Moderate eccentric MR as well as TR. Mild AI and mild biatrial dilatation. -Patient has evidence of severe systolic dysfunction along with moderate RV dysfunction, diastolic dysfunction and moderate valvular heart disease. Patient does not appear to be fluid overloaded therefore will hold started diueretics -Recommend to also start patient on [id number] mg twice daily and increase metoprolol XL to 100 mg once daily as Pts. blood pressure is able to tolerate better.. No Cardizem given the LV systolic dysfunction. Based on the echo findings #severe biventricular and combined systolic diastolic congestive heart failure (echo findings on 07/25) -Recommend strict input output, daily weights and 2 g sodium diet. Patient will need to be on goal-directed medical therapy with beta-ivania, JACOB inhibitor's as well as spironolactone but patient is hypotensive as noted above and will hold off on the GDMT for now and can be reintroduced one by one but pt is started on beta-ivania for rate control. #elevated troponins- likely in the setting of NSTEMI type ll (demand ischemia) -on initial presentation patient had elevated troponins at 0.768 which have now downtrended to 0.574. No further troponin trending is needed. Pt does not exhibit any symptoms of [place], Pt denies chest pain, or pressure. -Recommend aspirin if tolerated along with statin and beta-ivania. # Primary hypertension -Patient has a history of primary hypertension for which patient takes amlodipine 5 mg daily however on arrival in the ED patient blood pressure is 104/79 and today patient's blood pressure is 119/83 therefore will continue to hold home antihypertensive until permissible Assessment and plan discussed with my attending physician Dr. Corona Cruz (PGY-1)- Internal medicine resident Attending Provider Attestation/Addendum A 79-year-old female who resident of [facility] with a past medical history of essential hypertension, paroxysmal atrial fibrillation noted on EKG in 2021, history of GI bleed secondary to [place] tear, history of alcohol use disorder, ex-smoker as per documentation but patient denies, GERD and unspecified psych disorder was brought into the emergency department for further evaluation of hypoxia and low saturations and worsening cough over the last few days. Patient was found to have acute respiratory failure secondary to possible Pneumonia along with a parapneumonic effusion and the suspicion of empyema. Patient was noted to be in atrial fibrillation with RVR on admission with a heart rate of around 150 bpm -180 bpm. EKG did show atrial fibrillation with RVR but no evidence of any acute ST-T changes. Initial vitals in the emergency department showed a blood pressure of 104/70 mmHg, heart rate of 1 6 6/min respirate rate of 22, temp of 97.7, saturation of 92% on oxygen by nasal cannula. WBC elevated 15 and 8 with left shift and hemoglobin 16.3 platelets 460, glucose 196, BNP 371 troponin was 0.768. UA was negative flu negative RSV negative. Chest x-ray showed significant left base pneumonia and CTA chest was also performed which showed no evidence of any pulmonary embolism but showed left base pneumonia, mild heart failure and moderate left and mild right pleural effusions. After patient was diagnosed with pneumonia at [facility] and patient was on levofloxacin for 7 days. Denies any kind of chest pain chest pressure or other cardiac complaints except for the shortness of breath on the acute hypoxic respiratory failure. Cardiology consulted for atrial fibrillation with atrial fibrillation with RVR Assessment and plan: 1. Acute hypoxic respiratory failure in the setting of pneumonia along with parapneumonic effusions. 2. Sepsis secondary to the pneumonia 3. Paroxysmal atrial fibrillation with RVR in the setting of sepsis and pneumonia and hypoxic respiratory failure 4. 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 Elevated troponins-NSTEMI type II due to supply/demand mismatch with A-fib with RVR 6. Community-acquired pneumonia-complicated 7. Parapneumonic effusions 8. Essential hypertension 9. History of significant alcohol use disorder 10. Previous history of GI bleed secondary to [place] tear 11. GERD 12. Unspecified psych disorder with possible underlying mild to moderate dementia Patient with paroxysmal atrial fibrillation with RVR but patient unaware of the same. Previous EKGs in 2021 showed the same. Patient came in with atrial fibrillation with RVR with heart rate of around 160s beat per minute. Patient was started on diltiazem bolus as well as drip and is at 10 mg/h. Heart rate appears to be well-controlled between 80-100 bpm. Patient does not have any history of COPD and will start the patient on metoprolol XL 100 mg once daily or 50 mg twice daily blood pressure from the lab. Recommend to stop the diltiazem drip 2 hours after the metoprolol was given. Patient chads Vascor is elevated and was started on heparin drip for anticoagulation and can be eventually transition to Eliquis. Weight is less than 60 kg and her GFR is also less than 60. Patient can be started on Eliquis 2.5 mg twice daily for anticoagulation. Will continue to uptitrate metoprolol patient up ectasia. Keep potassium greater than 4 magnesium greater than 2.0 at all times. 07/24/2024 Overnight events on 07/24 and 07/25 reviewed and patient apparently was in atrial fibrillation with RVR and patient was started on amiodarone drip for rate control as patient was hypotensive. She did tolerate the diltiazem drip and then was transition to metoprolol XL but patient became hypotensive overnight and could be worsening sepsis. Started on amiodarone drip and completed the drip and started on amiodarone 200 mg twice daily. Patient started on metoprolol XL 50 mg once daily and was given additional 50 mg once this morning and received a total of 100 mg XL. Patient's heart rate is still elevated at and continue to uptitrate metoprolol if his blood pressure at home. Will give additional 200 mg of amiodarone today. No Cardizem given the LV systolic dysfunction. Aggressive replacement of the potassium and magnesium and keep potassium greater than 4 magnesium greater than 2.0. 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 Eliquis 2.5 mg twice daily for anticoagulation. ChadsVascor was elevated at 5 and has-bled score is 3 Recommend aggressive treatment of the sepsis. Regarding her severe biventricular and combined systolic diastolic congestive heart failure Echo completed on 07/25/2024 showed severely decreased LV function with an EF of 25 to 30% with moderately decreased RV function. Diastolic dysfunction present but cannot grade because of A-fib. Mild PAH with estimated RVSP of 40 mmHg. Moderate MAC along with mild to moderate aortic valve sclerosis without stenosis. Moderate eccentric MR as well as TR. Mild AI and mild biatrial dilatation. Patient has evidence of severe systolic dysfunction along with moderate RV dysfunction, diastolic dysfunction and moderate valvular heart disease. Patient does not appear to be fluid overloaded at the present point of time. 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 Recommend strict input output, daily weights and 2 g sodium diet. Patient will need to be on goal-directed medical therapy with beta-ivania, JACOB inhibitor's as well as spironolactone but patient is hypotensive as noted above and will hold off on the GDMT for now and can be reintroduced one by one but recommend to start with beta-ivania for rate management. Mildly elevated troponins at 0.768 and downtrending to 0.57. Patient denies any chest pain chest pressure or other cardiac complaints at limited historian because of her possible underlying mild dementia. EKG did not show any acute ST changes or history of any ischemia. Recommend no further troponins for now as the troponin elevation is secondary to type II NSTEMI in the setting of supply/demand mismatch. Echocardiogram reviewed and showed severe LV dysfunction with an EF of 25 to 30% but global hypokinesis and there was no evidence of any particular regional wall motion abnormalities. Overall picture appears to be tachycardia induced cardiomyopathy with is her uncontrolled longstanding atrial fibrillation with RVR. Recommend aspirin if tolerated along with statin and beta-ivania. Patient's weight is only 40 kg patient appears to be malnourished and also has possible mild to moderate dementia at baseline with multiple comorbidities as noted above. Recommend primary team to discuss the goals of care with family or next of kin. Essential hypertension-patient blood pressure since admission has been soft and home medications held for now to have enough room for the beta-ivania for rate control. Management of rest of the medical conditions as per primary team and other consultants. Thank you for the consult and allowing me to participate in the care of the patient. Cardiology will continue to follow. Leon Jeter M.D. Interventional Cardiology
--- NOTE | 2024-07-27 16:12 | PC.SS ---
SS attempted to meet with patient at bedside to complete initial assessment. Patient unable to provide information. SS attempted to contact [facility]ust[facility] listed. However, the person who answered stated she had no relation to patient and requested not to be contacted to this number [phone]. [facility] Lange was contacted and explained their SNF does not have an updated contact number. Information for [place] was provided by [facility] Lange. PARAS Rene stated patient recently dependent on staff for ADL completion and ambulation as well. She explained patient is currently bed bound. Pharmacy: [facility] PCP: Dr. Hilario. Medical surrogate decision maker: Sister Ruby Huston phone # is pending. Discharge plan: [facility], transportation will be needed.
[2024-07-27] MEDS: Magnesium Sulfate 2 GM Ivpb 2 GM/50 ML BAG IV (16:57)
[2024-07-27] MEDS: FLUCONAZOLE/NS 400 MG IVPB 400 MG/200 ML BAG 100 MG IV (20:31)
[2024-07-28] VITALS (10 sets, daily range): BP systolic 100–112; BP diastolic 75–86; PULSE 94–120; RESP 19–95; TEMP 36.1–37.1; O2SAT 91–96; BMI 18.9
[2024-07-28 05:45] LABS: Basophils # (Auto) 0.1 Thou/mm3 (0.0-0.2); Basophils % (Auto) 1 % (0-2.5); Eosinophils % (Auto) 0 % (0-10); Hematocrit 44.5 % (36.0-46.0); Hemoglobin 14.9 g/dL (12.0-16.0); Immature Granulocytes % (Auto) 1 % (0-0); Immature Granulocytes Auto 0.15 Thou/mm3 (0.00-0.00); Lymphocytes # (Auto) 2.8 Thou/mm3 (1.0-4.8); Lymphocytes % (Auto) 24 % (10-50); Mean Corpuscular HGB Conc 33.5 g/dl (31.0-37.0); Mean Corpuscular Hemoglobin 29.9 pg (25.0-35.0); Mean Corpuscular Volume 89 fL (80-100); Monocytes # (Auto) 1.2 Thou/mm3 (0.0-0.8); Monocytes % (Auto) 10 % (0-12); Neutrophils # (Auto) 7.4 Thou/mm3 (1.8-7.7); Neutrophils % (Auto) 64 % (37-80); Nucleated Red Blood Cell % 1 /100 WBC (0); Platelet Count 317 Thou/mm3 (140-440); RDW Standard Deviation 47.6 fL (36.4-46.3); Red Blood Count 4.98 Miln/mm3 (4.00-5.20); White Blood Count 11.6 Thou/mm3 (3.6-11.0)
[2024-07-28 07:36] LABS: Alanine Aminotransferase 20 U/L (10-49); Albumin, Serum 3.4 gm/dL (3.4-4.8); Albumin/Globulin Ratio 1.4 (1.2-2.2); Alkaline Phosphatase 130 U/L (46-116); Anion Gap 10 (7-16); Aspartate Amino Transferase 28 U/L (0-34); BUN/Creatinine Ratio 23 Ratio (12-20); Bilirubin,Total 0.3 mg/dL (0.3-1.2); Blood Urea Nitrogen 21 mg/dL (9-23); Calcium 8.8 mg/dL (8.3-10.6); Calcium (Corrected) 9.3 mg/dL (8.5-10.1); Carbon Dioxide 21.9 mMol/L (20.0-31.0); Chloride 110 mMol/L (98-107); Creatinine (Component) 0.9 mg/dL (0.6-1.3); Estimated Creatinine Clearance 35.2 mL/min (>60); Globulin 2.5 gm/dL (2.3-3.5); Glucose 155 mg/dL (74-106); Magnesium 2.4 mg/dL (1.6-2.6); Osmolality,Calculated 289 (275-295); Potassium 4.8 mMol/L (3.4-5.1); Sodium 142 mMol/L (136-145); Total Protein 5.9 gm/dL (5.7-8.2); eGFR > 60 See Note
[2024-07-28] MEDS: PANTOPRAZOLE INJ 40 MG VIAL IVP (09:06)
[2024-07-28] MEDS: METOPROLOL SUCCINATE XL 25 MG TABCR 150 MG PO (09:07)
[2024-07-28] MEDS: ASPIRIN EC 81 MG TABEC PO (09:07)
[2024-07-28] MEDS: APIXABAN 2.5 MG TABLET PO ×2 (09:07→21:34)
[2024-07-28] MEDS: SENNA TABLET 1 TAB PO (09:08)
[2024-07-28] MEDS: BusPIRone HCL 5 MG TABLET 15 MG PO ×2 (09:08→21:33)
[2024-07-28] MEDS: AMIODARONE HCL 200 MG TABLET PO ×2 (09:09→21:34)
[2024-07-28] MEDS: cefTRIAXone/D5w 1gm IV premix 50 ML IV (09:09)
[2024-07-28] MEDS: DOXYCYCLINE INJ 100 MG in SODIUM CHLORIDE 0.9% (P) 100 ML IV (10:10)
[2024-07-28] MEDS: guaiFENesin/DM TABLET 1 EACH PO ×2 (10:30→21:53)
[2024-07-28] MEDS: MIRTAZAPINE 15 MG TABLET PO (12:30)
--- NOTE | 2024-07-28 12:43 | ESPR_ITS ---
Documentation for date of: 07/28/24 Subjective Subjective Interval history: 07/28: no overnight events reported. Pt is seen and examined at bedside. Pt skipped breakfast as she is too tired to eat. currently saturating above 95% on room air. telemetry is reviewed, Pt HR is above 110. She denies SOB, chest pains or palpitations. Pt requested to not be bothered and she would like to keep resting. Potassium is 4.8 and mag is 2.4. Pt is taking amiodarone 200mg BID, eliquis 2.5 BID and metoprolol succinate 50mg XL daily. pt has not other complaints. Exam Vital Signs Temp Pulse Resp BP Pulse Ox O2 Del Method O2 Flow Rate 97.8 F 111 H 25 H 100/80 96 Room Air 4 07/28/24 08:00 07/28/24 09:09 07/28/24 08:00 07/28/24 09:09 07/28/24 08:00 07/28/24 08:00 07/24/24 08:22 Narrative Exam GENERAL: A&Ox1. Awake, frail elderly female, cooperative but tired NEURO: no focal neurological deficits noted HEENT: Atraumatic, Normocephalic. mucous membranes moist. Eyes open, symmetrical, & clear, large multiple masses on right upper eye HEART: Normal Heart Sounds LUNGS: bilateral wheezing heard on auscultation ABDOMEN: soft, non-distended, non-tender, bowel sounds heard, no guarding or rebound tenderness SKIN: No Rash or ecchymoses EXTREMITIES: No edema, tenderness, able to move all 4 extremities, pedal pulses palpated Objective Labs 07/28/24 04:52 07/28/24 07:08 Labs: Laboratory Results - last 24 hr 07/28/24 07/28/24 04:52 07:08 WBC 11.6 H RBC 4.98 Hgb 14.9 Hct 44.5 MCV 89 MCH 29.9 MCHC 33.5 RDW Std Deviation 47.6 H Plt Count 317 D Neut % (Auto) 64 Lymph % (Auto) 24 [place] % (Auto) 10 Eos % (Auto) 0 Baso % (Auto) 1 Neut # (Auto) 7.4 Lymph # (Auto) 2.8 [place] # (Auto) 1.2 H Eos # (Auto) 0.0 Baso # (Auto) 0.1 Immature Gran # (Auto) 0.15 H Absolute Nucleated RBC 0.10 H Immature Gran % 1 H Nucleated RBC % 1 H Sodium 142 Potassium 4.8 Chloride 110 H Carbon Dioxide 21.9 Anion Gap 10 BUN 21 Creatinine 0.9 Estim Creat Clear Calc 35.2 L eGFR > 60 BUN/Creatinine Ratio 23 H Glucose 155 H Calculated Osmolality 289 Calcium 8.8 Corrected Calcium 9.3 Magnesium 2.4 Total Bilirubin 0.3 AST 28 ALT 20 Alkaline Phosphatase 130 H Total Protein 5.9 Albumin 3.4 Globulin 2.5 Albumin/Globulin Ratio 1.4 Quality Measures Quality Measures none Advance care planning discussed with:: patient Assessment & Plan Assessment Current Active Medications: Generic Name Dose Route Start Last Admin Trade Name Freq PRN Reason Stop Dose Admin Acetaminophen 650 mg 07/24/24 04:51 Acetaminophen 325 Mg Tablet PO 08/23/24 04:50 Q6H PRN Fever >101.5 Acetaminophen 650 mg 07/24/24 04:51 Acetaminophen 325 Mg Tablet PO 08/23/24 04:50 Q6H PRN PAIN SCALE 1-3 (mild Amiodarone HCl 200 mg 07/25/24 14:00 07/28/24 09:09 Amiodarone Hcl 200 Mg Tablet PO 08/24/24 13:59 200 mg BID JOSE Administration Apixaban 2.5 mg 07/24/24 21:00 07/28/24 09:07 Apixaban 2.5 Mg Tablet PO 08/23/24 20:59 2.5 mg BID JOSE Administration Aspirin 81 mg 07/28/24 09:00 07/28/24 09:07 Aspirin Ec 81 Mg Tabec PO 08/27/24 08:59 81 mg QDAY JOSE Administration Atorvastatin Calcium 40 mg 07/28/24 21:00 Atorvastatin Calcium 20 Mg Tablet PO 08/27/24 20:59 HS JOSE Buspirone HCl 15 mg 07/24/24 09:00 07/28/24 09:08 Buspirone Hcl 5 Mg Tablet PO 08/23/24 08:59 15 mg BID JOSE Administration Guaifenesin/Dextromethorphan 1 each 07/25/24 10:15 07/28/24 10:30 Guaifenesin/Dm Tablet PO 08/24/24 10:14 1 each BID JOSE Administration Doxycycline Hyclate 100 mg/ 100 mls @ 100 mls/hr 07/24/24 09:00 07/28/24 10:10 Sodium Chloride IV 07/31/24 08:59 100 mls/hr BID JOSE Administration Fluconazole 400 mg in 200 mls @ 100 mls/hr 07/24/24 17:23 07/27/24 20:31 Diflucan/Ns Ivpb IV 07/31/24 17:22 100 mls/hr QDAY@2100 JOSE Administration Ceftriaxone Sodium/Dextrose 50 mls @ 100 mls/hr 07/25/24 10:33 07/28/24 09:09 Rocephin/D5w 1gm Iv Premix IV 08/01/24 10:32 100 mls/hr QDAY JOSE Administration Metoprolol Succinate 150 mg 07/28/24 09:00 07/28/24 09:07 Metoprolol Succinate Xl 25 Mg Tabcr PO 08/27/24 08:59 150 mg QDAY JOSE Administration Mirtazapine 15 mg 07/28/24 11:05 07/28/24 12:30 Mirtazapine 15 Mg Tablet PO 08/27/24 11:04 15 mg QDAY JOSE Administration Ondansetron HCl 4 mg 07/24/24 04:51 Ondansetron Inj 2 Mg/Ml Inj 2 Ml IV 08/23/24 04:50 Q6H PRN NAUSEA OR VOMITING Protocol Pantoprazole Sodium 40 mg 07/24/24 09:00 07/28/24 09:06 Pantoprazole Inj 40 Mg Vial IVP 08/23/24 08:59 40 mg QDAY JOSE Administration Sennosides 1 tab 07/24/24 09:00 07/28/24 09:08 Senna Tablet PO 08/23/24 08:59 1 tab QDAY JOSE Administration Protocol Plan Ms. Ryder is a 79 year old female with past medical history significant for history of HTN, Hx of a-fib noted on EKG from 2021 and GI bleed secondary to [place] tear in 2021 likely related to alcohol use disorder brought by ambulance due to low oxygen saturations at the nursing facility. Pt is admitted to the hospital for IV antibiotics and diltiazam drip as pt was found to be in A-fib with RVR. # Sepsis secondary to #Hospital-acquired pneumonia # Pleural effusions -Chest CTA is evident of moderate left and mild right pleural effusions as well as pneumonia on the left base -Per primary hospitalist team patient is started on IV antibiotics with doxycycline 100 Mg IV twice daily #Paroxysmal A-fib with RVR -EKG from 2021 showed patient has history of A-fib and patient home medication include metoprolol 25 Mg daily for rate control -Patient is started on diltiazem drip 10 Mg/hr in the ED -Patient will be transition to metoprolol 100 Mg daily or 50 Mg twice daily and 2 hours after metoprolol is given patient's diltiazem drip to be turned off. -[id number] score 4 points (age greater than 75, female, hypertension history).HAS-BLED score for major bleeding risk for this patient is 3 points. Pt is started on Eliquis 2.5 mg twice daily for anticoagulation. -Keep potassium more than 4, magnesium more than 2 at all times -echocardiogram on 07/25/2024 showed severely decreased LV function with an EF of 25 to 30% with moderately decreased RV function. Diastolic dysfunction present but cannot breathe because of A-fib. Mild PAH with estimated RVSP of 40 mmHg. Moderate MAC along with mild to moderate aortic valve sclerosis without stenosis. Moderate eccentric MR as well as TR. Mild AI and mild biatrial dilatation. -Patient has evidence of severe systolic dysfunction along with moderate RV dysfunction, diastolic dysfunction and moderate valvular heart disease. Patient does not appear to be fluid overloaded therefore will hold started diueretics -Recommend to also start patient on [id number] mg twice daily and increase metoprolol XL to 100 mg once daily as Pts. blood pressure is able to tolerate better.. No Cardizem given the LV systolic dysfunction. Based on the echo findings -Pt is taking amiodarone 200mg BID, eliquis 2.5 BID and metoprolol succinate 50mg XL daily. 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 Patient will need to be on goal-directed medical therapy with beta-ivania, JACOB inhibitor's as well as spironolactone but patient is hypotensive as noted above and will hold off on the GDMT for now and can be reintroduced one by one but pt is started on beta-ivania for rate control. #elevated troponins- likely in the setting of NSTEMI type ll (demand ischemia) -on initial presentation patient had elevated troponins at 0.768 which have now downtrended to 0.574. No further troponin trending is needed. Pt does not exhibit any symptoms of [place], Pt denies chest pain, or pressure. -EKG did not show any acute ST changes or history of any ischemia -Recommend aspirin if tolerated along with statin and beta-ivania. # Primary hypertension -Patient has a history of primary hypertension for which patient takes amlodipine 5 mg daily however on arrival in the ED patient blood pressure is 104/79 and today patient's blood pressure is 119/83 therefore will continue to hold home antihypertensive until permissible Assessment and plan discussed with my attending physician Dr. Corona Cruz (PGY-1)- Internal medicine resident Attending Provider Attestation/Addendum I have personally seen and examined the patient separately on the above date of service and discussed the plan of care with the resident. I reviewed the resident Dr. Desire Cruz consultation progress note and agree with the resident findings and plan in the note above and have also edited the documentation to reflect my findings and plan. Leon Jeter M.D. Interventional Cardiology
--- NOTE | 2024-07-28 13:50 | ESPR_ITS ---
Documentation for date of: 07/28/24 Subjective Subjective Interval history: HPI limited as patient does not want to answer questions and is a poor historian 07/24/2024: Patient examined at bedside today. Is not experiencing any pain at this time. Telemetry reviewed highest heart rate was in 200s, right now it is at 100s. It is not experiencing any chest pain or shortness of breath. Patient is unable to fully answer a lot of questions as she is a poor historian. Patient is continue with dill drip at this time no complaints at this time 07/25/2024: Patient examined at bedside today. Telemetry reviewed, patient is still in A-fib, heart rate going up to the 170s, rate has been around the 130s, Amio drip started overnight after patient was given Cardizem and remained to be in A-fib with RVR. Patient reports he is not experiencing chest pain, palpitation or shortness of breath. She continues to be a poor historian and seems a bit lethargic. She is still able to answer some questions. BUN/creatinine 9 and 0.6 respectively, potassium 4.1, magnesium 2, white count of 11.3, hemoglobin 14.9. 07/27/2024: Pt examined at bedside today. Telemetry reviewed, patient remains to be in the 130s still in A-fib. Patient reports that she does not want to be examined much today. Does not have any shortness of breath or chest pain. She also just wants to be left alone at this time. Patient has a white count of 9.5, hemoglobin 14.3, 4.4, chloride of 111, BUN/creatinine of 19 and 0.8 respectively, magnesium 2.1, phosphorus 2.9, AST ALT 25 and 18 respectively. No other complaints at this time 07/28/2024, patient examined at bedside today. Telemetry reviewed and patient appears to be still in atrial fibrillation rate in the 120s to 130s, max 143. Patient reports she is doing okay today Feeling any chest pain, shortness of breath or palpitations. She is requesting to drink water and to be left alone. She is willing to take her medicines 1 given to her by her nurse. She has no other complaints at this time. Pt had a WBC of 11.6, Hemoglobin 14.9, sodium 142, potassium 4.8, chloride of 110, BUN/creatinine of 21 and 0.9 respectively, AST ALT 20 and 20 respectively, magnesium 2.4. Exam Vital Signs Temp Pulse Resp BP Pulse Ox O2 Del Method O2 Flow Rate 97.8 F 111 H 25 H 100/80 96 Room Air 4 07/28/24 08:00 07/28/24 09:09 07/28/24 08:00 07/28/24 09:09 07/28/24 08:00 07/28/24 08:00 07/24/24 08:22 Narrative Exam Limited physical exam as patient does not want to be examined General: AAOx1, elderly lady might have dementia, redish hair, elderly, frail, looks unkempt HEENT: Dry mucous membranes, conjunctiva clear, EOMI, PERRLA, poor dentition, large lesions seen in corner of right eyebrow resembling squamous cell carcinoma Cardiovascular: S1, S2, radial pulses +2 bilat, tachycardia, irregularly irregular Pulmonary: Difficulty appreciating breath sounds GI: No tenderness to light or deep palpitation, no guarding, rigidity, rebound tenderness or distension Extremities: No presence of trace or pitting edema in lower extremities bilaterally, dorsalis pedis pulses +2 bilaterally Neuro: AAOx1, no focal motor or sensory deficits in the UE or LE bilat Psych: Not very cooperaetive Objective Labs 07/28/24 04:52 07/28/24 07:08 Labs: Laboratory Results - last 24 hr 07/28/24 07/28/24 04:52 07:08 WBC 11.6 H RBC 4.98 Hgb 14.9 Hct 44.5 MCV 89 MCH 29.9 MCHC 33.5 RDW Std Deviation 47.6 H Plt Count 317 D Neut % (Auto) 64 Lymph % (Auto) 24 [place] % (Auto) 10 Eos % (Auto) 0 Baso % (Auto) 1 Neut # (Auto) 7.4 Lymph # (Auto) 2.8 [place] # (Auto) 1.2 H Eos # (Auto) 0.0 Baso # (Auto) 0.1 Immature Gran # (Auto) 0.15 H Absolute Nucleated RBC 0.10 H Immature Gran % 1 H Nucleated RBC % 1 H Sodium 142 Potassium 4.8 Chloride 110 H Carbon Dioxide 21.9 Anion Gap 10 BUN 21 Creatinine 0.9 Estim Creat Clear Calc 35.2 L eGFR > 60 BUN/Creatinine Ratio 23 H Glucose 155 H Calculated Osmolality 289 Calcium 8.8 Corrected Calcium 9.3 Magnesium 2.4 Total Bilirubin 0.3 AST 28 ALT 20 Alkaline Phosphatase 130 H Total Protein 5.9 Albumin 3.4 Globulin 2.5 Albumin/Globulin Ratio 1.4 Quality Measures Quality Measures none Advance care planning discussed with:: patient Assessment & Plan Assessment Current Active Medications: Generic Name Dose Route Start Last Admin Trade Name Freq PRN Reason Stop Dose Admin Acetaminophen 650 mg 07/24/24 04:51 Acetaminophen 325 Mg Tablet PO 08/23/24 04:50 Q6H PRN Fever >101.5 Acetaminophen 650 mg 07/24/24 04:51 Acetaminophen 325 Mg Tablet PO 08/23/24 04:50 Q6H PRN PAIN SCALE 1-3 (mild Amiodarone HCl 200 mg 07/25/24 14:00 07/28/24 09:09 Amiodarone Hcl 200 Mg Tablet PO 08/24/24 13:59 200 mg BID JOSE Administration Apixaban 2.5 mg 07/24/24 21:00 07/28/24 09:07 Apixaban 2.5 Mg Tablet PO 08/23/24 20:59 2.5 mg BID JOSE Administration Aspirin 81 mg 07/28/24 09:00 07/28/24 09:07 Aspirin Ec 81 Mg Tabec PO 08/27/24 08:59 81 mg QDAY JOSE Administration Atorvastatin Calcium 40 mg 07/28/24 21:00 Atorvastatin Calcium 20 Mg Tablet PO 08/27/24 20:59 HS JOSE Buspirone HCl 15 mg 07/24/24 09:00 07/28/24 09:08 Buspirone Hcl 5 Mg Tablet PO 08/23/24 08:59 15 mg BID JOSE Administration Guaifenesin/Dextromethorphan 1 each 07/25/24 10:15 07/28/24 10:30 Guaifenesin/Dm Tablet PO 08/24/24 10:14 1 each BID JOSE Administration Doxycycline Hyclate 100 mg/ 100 mls @ 100 mls/hr 07/24/24 09:00 07/28/24 10:10 Sodium Chloride IV 07/31/24 08:59 100 mls/hr BID JOSE Administration Fluconazole 400 mg in 200 mls @ 100 mls/hr 07/24/24 17:23 07/27/24 20:31 Diflucan/Ns Ivpb IV 07/31/24 17:22 100 mls/hr QDAY@2100 JOSE Administration Ceftriaxone Sodium/Dextrose 50 mls @ 100 mls/hr 07/25/24 10:33 07/28/24 09:09 Rocephin/D5w 1gm Iv Premix IV 08/01/24 10:32 100 mls/hr QDAY JOSE Administration Metoprolol Succinate 150 mg 07/28/24 09:00 07/28/24 09:07 Metoprolol Succinate Xl 25 Mg Tabcr PO 08/27/24 08:59 150 mg QDAY JOSE Administration Mirtazapine 15 mg 07/28/24 11:05 07/28/24 12:30 Mirtazapine 15 Mg Tablet PO 08/27/24 11:04 15 mg QDAY JOSE Administration Ondansetron HCl 4 mg 07/24/24 04:51 Ondansetron Inj 2 Mg/Ml Inj 2 Ml IV 08/23/24 04:50 Q6H PRN NAUSEA OR VOMITING Protocol Pantoprazole Sodium 40 mg 07/24/24 09:00 07/28/24 09:06 Pantoprazole Inj 40 Mg Vial IVP 08/23/24 08:59 40 mg QDAY JOSE Administration Sennosides 1 tab 07/24/24 09:00 07/28/24 09:08 Senna Tablet PO 08/23/24 08:59 1 tab QDAY JOSE Administration Protocol Plan Assessment Mr. Ryder is a 79-year-old female with past medical history of hypertension, GI bleed secondary to [place] tear, GERD, alcohol use disorder, unspecified psych disorder who was BIBA from [facility] to the [facility] ED on 07/23/2024 for acute hypoxic respiratory failure with sepsis secondary to pneumonia and A-fib with RVR. #Acute hypoxic respiratory failure #Sepsis secondary to pneumonia, SIRS +3/4, leukocytosis #CAP versus HCAP #Left-sided pleural effusion #Coccidioides IgM positive Patient was initially diagnosed with pneumonia, parapneumonic effusion and [facility], was started on oral levofloxacin, completed 6 out of 7-day course with worsening symptoms and hypoxemia was eventually sent to ER via EMS, patient SpO2 88% on room air, noncompliant with oxygen therapy. Patient has cough and shortness of breath, chest x-ray significant for left base pneumonia, preliminary CTA negative for PE shows bilateral parapneumonic effusion, cardiomegaly and concern of CHF. Curb 65 2 points, moderate risk 6.8% 30-day mortality group, PSI/port score 117 points risk class IV 8.2 to 9.3% mortality. Patient went down for thoracentesis, pleural effusion was not amendable to thoracentesis per IR Will continue with current management to see how patient improves COVID, RSV and flu negative Blood cultures no growth after 2 day MRSA negative, will discontinue antibiotic coverage for MRSA as MRSA risk is low at this time Plan: ?Will continue with Rocephin and will discontinue doxycycline at this time ?DuoNeb treatment as needed ?Continue with fluconazole 400 mg daily ?Follow-up Coccidioides IgG #Atrial fibrillation with RVR #History of HFrEF with systolic and diastolic function, EF 25 to 30% CHADVASC: 4 points HAS-BLED:3 points Patient does have history of D[place]ia-[place] tear and GI bleed Bleeding risk, however patient does need anticoagulation for A-fib with RVR, risk-benefit situation here TSH 1.48 LDL 77, total cholesterol 134 A1c 5.4 Patient does not appear to be in heart failure at this time, however will monitor Patient was on amnio drip previously Rate is not controlled still with Amio 200 mg oral and metoprolol 50 XL, will adjust dosage Will add GDMT therapy as patient tolerates BP, will control heart rate at this time and will prioritize to max beta-ivania Plan: ?Increase to metoprolol 150 XL ?Amio 200 mg twice daily po ?Eliquis 2.5 mg twice daily ?Aspirin and Lipitor 40 mg p.o. at bedtime -Consulted cardiology, appreciate recommendations -Strict intake and output, daily weight, fluid restriction 1999 cc -Keep potassium more than 4, magnesium more than 2 #NSTEMI type I versus type II, demand ischemia, resolved Troponin peaked at 0.768 #History of hypertension Blood pressure has been soft we will hold on giving blood pressure medicines at this time Plan: ? Metoprolol 150 XL #Polycythemia, resolved #Thrombocytosis, resolved Plan: ? Trend with CBC #Mild transaminitis, resolved Plan: ?Trend with CMP #Failure to thrive #History of FARTUN Resume Remeron over Megace as this will give some sedating proper for anxiety ties and increased appetite Encouraging oral hydration 2000 cc limit due to patient having heart failure history Plan: ? Resumed home Buspar 15 mg twice daily ? Added Remeron 15 mg ? Oral hydration, 2000 cc for fluid restriction #Skin lesion, right sided Highly suspicious for squamous cell carcinoma, however can be other skin cancer such as basal Will require excision rather than biopsy Plan: ?Recommend to follow-up with dermatology outpatient #Health Maintenance Disposition: Telemetry DVT prophylaxis: Eliquis GI prophylaxis: Pantoprazole 40 mg daily Diet: Dysphagia 2 CODE STATUS: Full Patient seen and care discussed with my senior resident, Dr. Wright, and my attending physician, Dr. Brianna Lin, PGY-1 Attending Provider Attestation/Addendum I reviewed labs, imaging, EKG, home medications and prior available records. Face to face evaluation was performed by me. I have personally examined the patient and discussed assessment and plan with the IM team. I reviewed the resident note and agree with the plan with exceptions as below. Acute hypoxic respiratory failure: In the setting of left lower lobe pneumonia. Cocci pneumonia is positive. Started ceftriaxone/doxycycline. Started fluconazole Left pleural effusion: Consult IR for pleurocentesis given the possible associated pneumonia: Insufficient fluids for drainage Atrial fibrillation with rapid ventricular response: Rate is uncontrolled but overall better. Transition to p.o. amio. Increased metoprolol. Ordered echocardiogram that showed severely reduced EF of 25 to 30%. Non-STEMI: Likely in the setting of hypoxia and A-fib with RVR. Troponin peaked. Management as above. Debility: She will go back to SNF once medically cleared Skin lesion: Possible squamous cell carcinoma. Will need biopsy/surgery but we cannot perform at our [facility]. Close outpatient follow-up.
--- NOTE | 2024-07-28 18:15 | PC.NURSE ---
free water was ordered , patient refusing to take liquid, dr larios is aware.
[2024-07-28] MEDS: ATORVASTATIN CALCIUM 20 MG TABLET 40 MG PO (21:34)
[2024-07-28] MEDS: FLUCONAZOLE/NS 400 MG IVPB 400 MG/200 ML BAG 100 MG IV (21:35)
[2024-07-29] VITALS (13 sets, daily range): BP systolic 100–126; BP diastolic 68–90; PULSE 94–128; RESP 18–93; TEMP 35.8–36.5; O2SAT 91–96; BMI 18.9
[2024-07-29] MEDS: PANTOPRAZOLE INJ 40 MG VIAL IVP (08:52)
[2024-07-29] MEDS: guaiFENesin/DM TABLET 1 EACH PO ×2 (08:52→20:44)
[2024-07-29] MEDS: cefTRIAXone/D5w 1gm IV premix 50 ML IV (08:52)
[2024-07-29] MEDS: AMIODARONE HCL 200 MG TABLET PO ×2 (08:53→20:44)
[2024-07-29] MEDS: SENNA TABLET 1 TAB PO (08:53)
[2024-07-29] MEDS: BusPIRone HCL 5 MG TABLET 15 MG PO ×2 (08:53→20:44)
[2024-07-29] MEDS: APIXABAN 2.5 MG TABLET PO ×2 (08:53→20:45)
[2024-07-29] MEDS: METOPROLOL SUCCINATE XL 25 MG TABCR 150 MG PO (08:54)
[2024-07-29] MEDS: MIRTAZAPINE 15 MG TABLET PO (08:54)
[2024-07-29] MEDS: ASPIRIN EC 81 MG TABEC PO (08:54)
--- NOTE | 2024-07-29 10:00 | PD.RESPRO ---
Documentation for date of: 07/29/24 Subjective Subjective Interval history: 07/29: no acute overnight events reported. pt is seen and examined at bedside. She states she is feeling much better, and is thirsty and would like to drink water. pt denies SOB, chest pain or palpitations. She states nothing is bothering her at the moment. telemetry is reviewed, pt continues to be in afib, she is currently on amiodarone 200mg BID and metoprolol succinate is increased to 100mg XL BID. and Pts max heart in the last 12 hrs is 138 and min 111. pt has no complaints Exam Vital Signs Temp Pulse Resp BP Pulse Ox O2 Del Method O2 Flow Rate 97.1 F 116 H 25 H 126/90 H 93 L Room Air 4 07/29/24 04:00 07/29/24 08:54 07/29/24 04:00 07/29/24 08:54 07/29/24 04:00 07/29/24 04:00 07/24/24 08:22 Narrative Exam GENERAL: A&Ox1. Awake, frail elderly female, cooperative but tired NEURO: no focal neurological deficits noted HEENT: Atraumatic, Normocephalic. mucous membranes moist. Eyes open, symmetrical, & clear, large multiple masses on right upper eye HEART: Normal Heart Sounds LUNGS: clear breath sounds heard bilaterally , no more wheezing heard ABDOMEN: soft, non-distended, non-tender, bowel sounds heard, no guarding or rebound tenderness SKIN: No Rash or ecchymoses EXTREMITIES: No edema, tenderness, able to move all 4 extremities, pedal pulses palpated Objective Labs 07/29/24 09:16 07/29/24 09:16 Quality Measures Quality Measures none Advance care planning discussed with:: patient Assessment & Plan Assessment Current Active Medications: Generic Name Dose Route Start Last Admin Trade Name Freq PRN Reason Stop Dose Admin Acetaminophen 650 mg 07/24/24 04:51 Acetaminophen 325 Mg Tablet PO 08/23/24 04:50 Q6H PRN Fever >101.5 Acetaminophen 650 mg 07/24/24 04:51 Acetaminophen 325 Mg Tablet PO 08/23/24 04:50 Q6H PRN PAIN SCALE 1-3 (mild Amiodarone HCl 200 mg 07/25/24 14:00 07/29/24 08:53 Amiodarone Hcl 200 Mg Tablet PO 08/24/24 13:59 200 mg BID JOSE Administration Apixaban 2.5 mg 07/24/24 21:00 07/29/24 08:53 Apixaban 2.5 Mg Tablet PO 08/23/24 20:59 2.5 mg BID JOSE Administration Aspirin 81 mg 07/28/24 09:00 07/29/24 08:54 Aspirin Ec 81 Mg Tabec PO 08/27/24 08:59 81 mg QDAY JOSE Administration Atorvastatin Calcium 40 mg 07/28/24 21:00 07/28/24 21:34 Atorvastatin Calcium 20 Mg Tablet PO 08/27/24 20:59 40 mg HS JOSE Administration Buspirone HCl 15 mg 07/24/24 09:00 07/29/24 08:53 Buspirone Hcl 5 Mg Tablet PO 08/23/24 08:59 15 mg BID JOSE Administration Guaifenesin/Dextromethorphan 1 each 07/25/24 10:15 07/29/24 08:52 Guaifenesin/Dm Tablet PO 08/24/24 10:14 1 each BID JOSE Administration Fluconazole 400 mg in 200 mls @ 100 mls/hr 07/24/24 17:23 07/28/24 21:35 Diflucan/Ns Ivpb IV 07/31/24 17:22 100 mls/hr QDAY@2100 JOSE Administration Ceftriaxone Sodium/Dextrose 50 mls @ 100 mls/hr 07/25/24 10:33 07/29/24 08:52 Rocephin/D5w 1gm Iv Premix IV 08/01/24 10:32 100 mls/hr QDAY JOSE Administration Metoprolol Succinate 50 mg 07/29/24 21:00 Metoprolol Succinate Xl 25 Mg Tabcr PO 07/29/24 21:01 X1 ONE Metoprolol Succinate 100 mg 07/30/24 09:00 Metoprolol Succinate Xl 25 Mg Tabcr PO 08/29/24 08:59 BID JOSE Mirtazapine 15 mg 07/28/24 11:05 07/29/24 08:54 Mirtazapine 15 Mg Tablet PO 08/27/24 11:04 15 mg QDAY JOSE Administration Ondansetron HCl 4 mg 07/24/24 04:51 Ondansetron Inj 2 Mg/Ml Inj 2 Ml IV 08/23/24 04:50 Q6H PRN NAUSEA OR VOMITING Protocol Pantoprazole Sodium 40 mg 07/24/24 09:00 07/29/24 08:52 Pantoprazole Inj 40 Mg Vial IVP 08/23/24 08:59 40 mg QDAY JOSE Administration Sennosides 1 tab 07/24/24 09:00 07/29/24 08:53 Senna Tablet PO 08/23/24 08:59 1 tab QDAY JOSE Administration Protocol Plan Ms. Ryder is a 79 year old female with past medical history significant for history of HTN, Hx of a-fib noted on EKG from 2021 and GI bleed secondary to Dahlia-Obregon tear in 2021 likely related to alcohol use disorder brought by ambulance due to low oxygen saturations at the nursing facility. Pt is admitted to the hospital for IV antibiotics and diltiazam drip as pt was found to be in A-fib with RVR. # Sepsis secondary to #Hospital-acquired pneumonia #Cocci pneumonia # Pleural effusions -Chest CTA is evident of moderate left and mild right pleural effusions as well as pneumonia on the left base -Pts cocci IgM is positive- Pt is started on fluconazole -Per primary hospitalist team patient is started on IV antibiotics with doxycycline 100 Mg IV twice daily #Paroxysmal A-fib with RVR -EKG from 2021 showed patient has history of A-fib and patient home medication include metoprolol 25 Mg daily for rate control -Patient is started on diltiazem drip 10 Mg/hr in the ED -Patient will be transition to metoprolol 100 Mg daily or 50 Mg twice daily and 2 hours after metoprolol is given patient's diltiazem drip to be turned off. -[id number] score 4 points (age greater than 75, female, hypertension history).HAS-BLED score for major bleeding risk for this patient is 3 points. Pt is started on Eliquis 2.5 mg twice daily for anticoagulation. -Keep potassium more than 4, magnesium more than 2 at all times -echocardiogram on 07/25/2024 showed severely decreased LV function with an EF of 25 to 30% with moderately decreased RV function. Diastolic dysfunction present but cannot breathe because of A-fib. Mild PAH with estimated RVSP of 40 mmHg. Moderate MAC along with mild to moderate aortic valve sclerosis without stenosis. Moderate eccentric MR as well as TR. Mild AI and mild biatrial dilatation. -Patient has evidence of severe systolic dysfunction along with moderate RV dysfunction, diastolic dysfunction and moderate valvular heart disease. --Patient does not appear to be fluid overloaded therefore will hold started diueretics -No Cardizem given due to the LV systolic dysfunction Based on the echo findings -Pt is taking amiodarone 200mg BID, eliquis 2.5 BID and metoprolol succinate 100mg XL BID. 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 Patient will need to be on goal-directed medical therapy with beta-ivania, JACOB inhibitor's as well as spironolactone but patient is hypotensive as noted above and will hold off on the GDMT for now and can be reintroduced one by one but pt is started on beta-ivania for rate control. #elevated troponins- likely in the setting of NSTEMI type ll (demand ischemia) -on initial presentation patient had elevated troponins at 0.768 which have now downtrended to 0.574. No further troponin trending is needed. Pt does not exhibit any symptoms of NC, Pt denies chest pain, or pressure. -EKG did not show any acute ST changes or history of any ischemia -Recommend aspirin if tolerated along with statin and beta-ivania. # Primary hypertension -Patient has a history of primary hypertension for which patient takes amlodipine 5 mg daily however on arrival in the ED patient blood pressure is 104/79 and today patient's blood pressure is 105/78 therefore will continue to hold home antihypertensive until permissible Assessment and plan discussed with my attending physician Dr. Corona Cruz (PGY-1)- Internal medicine resident Attending Provider Attestation/Addendum I have personally seen and examined the patient separately on the above date of service and discussed the plan of care with the resident. I reviewed the resident Dr. Desire Cruz consultation progress note and agree with the resident findings and plan in the note above and have also edited the documentation to reflect my findings and plan. Patient breathing continues to improve but she is still on oxygen via nasal cannula intermittently. Telemetry reviewed and heart rate is well-controlled between 95 and 150 bpm Patient is a maximum dose of metoprolol XL at 100 mg twice daily as well as amiodarone 200 mg twice daily which we recommend to continue. Check EKG to evaluate the QTc for the patient. No additional AV ivania needed at the present point of time for rate control and patient's heart rate will continue to improve with the the treatment of sepsis and pneumonia. Given the patient's severe systolic dysfunction patient does need goal-directed medical therapy but patient blood pressure is soft with the metoprolol XL 100 mg twice daily and eventually patient needs to be started on Entresto and ARB or spironolactone as outpatient if BP permissible and kidney function stable Keep potassium greater than 4 magnesium greater than 2.0 at all times. Continue telemetry Leon Jeter M.D. Interventional Cardiology
[2024-07-29 10:01] LABS: Basophils # (Auto) 0.2 Thou/mm3 (0.0-0.2); Basophils % (Auto) 1 % (0-2.5); Eosinophils % (Auto) 0 % (0-10); Hematocrit 41.1 % (36.0-46.0); Hemoglobin 13.4 g/dL (12.0-16.0); Immature Granulocytes % (Auto) 2 % (0-0); Immature Granulocytes Auto 0.29 Thou/mm3 (0.00-0.00); Lymphocytes # (Auto) 2.3 Thou/mm3 (1.0-4.8); Lymphocytes % (Auto) 17 % (10-50); Mean Corpuscular HGB Conc 32.6 g/dl (31.0-37.0); Mean Corpuscular Hemoglobin 30.2 pg (25.0-35.0); Mean Corpuscular Volume 93 fL (80-100); Monocytes # (Auto) 0.9 Thou/mm3 (0.0-0.8); Monocytes % (Auto) 7 % (0-12); Neutrophils # (Auto) 9.5 Thou/mm3 (1.8-7.7); Neutrophils % (Auto) 73 % (37-80); Nucleated Red Blood Cell % 3 /100 WBC (0); Platelet Count 362 Thou/mm3 (140-440); RDW Standard Deviation 49.2 fL (36.4-46.3); Red Blood Count 4.43 Miln/mm3 (4.00-5.20)
[2024-07-29 10:23] LABS: Alanine Aminotransferase 20 U/L (10-49); Albumin, Serum 3.3 gm/dL (3.4-4.8); Alkaline Phosphatase 169 U/L (46-116); Anion Gap 15 (7-16); Aspartate Amino Transferase 23 U/L (0-34); BUN/Creatinine Ratio 25 Ratio (12-20); Bilirubin,Total 0.2 mg/dL (0.3-1.2); Blood Urea Nitrogen 25 mg/dL (9-23); Calcium 8.4 mg/dL (8.3-10.6); Carbon Dioxide 18.5 mMol/L (20.0-31.0); Chloride 106 mMol/L (98-107); Estimated Creatinine Clearance 31.7 mL/min (>60); Globulin 3.2 gm/dL (2.3-3.5); Glucose 349 mg/dL (74-106); Osmolality,Calculated 295 (275-295); Potassium 4.2 mMol/L (3.4-5.1); Sodium 139 mMol/L (136-145); Total Protein 6.5 gm/dL (5.7-8.2); eGFR 58 See Note
[2024-07-29 14:29] LABS: Path Review Blood Smear Sent to Pathologist
--- NOTE | 2024-07-29 15:57 | PD.RESPRO ---
Documentation for date of: 07/29/24 Subjective Subjective Interval history: HPI limited as patient does not want to answer questions and is a poor historian 07/24/2024: Patient examined at bedside today. Is not experiencing any pain at this time. Telemetry reviewed highest heart rate was in 200s, right now it is at 100s. It is not experiencing any chest pain or shortness of breath. Patient is unable to fully answer a lot of questions as she is a poor historian. Patient is continue with dill drip at this time no complaints at this time 07/25/2024: Patient examined at bedside today. Telemetry reviewed, patient is still in A-fib, heart rate going up to the 170s, rate has been around the 130s, Amio drip started overnight after patient was given Cardizem and remained to be in A-fib with RVR. Patient reports he is not experiencing chest pain, palpitation or shortness of breath. She continues to be a poor historian and seems a bit lethargic. She is still able to answer some questions. BUN/creatinine 9 and 0.6 respectively, potassium 4.1, magnesium 2, white count of 11.3, hemoglobin 14.9. 07/27/2024: Pt examined at bedside today. Telemetry reviewed, patient remains to be in the 130s still in A-fib. Patient reports that she does not want to be examined much today. Does not have any shortness of breath or chest pain. She also just wants to be left alone at this time. Patient has a white count of 9.5, hemoglobin 14.3, 4.4, chloride of 111, BUN/creatinine of 19 and 0.8 respectively, magnesium 2.1, phosphorus 2.9, AST ALT 25 and 18 respectively. No other complaints at this time 07/28/2024, patient examined at bedside today. Telemetry reviewed and patient appears to be still in atrial fibrillation rate in the 120s to 130s, max 143. Patient reports she is doing okay today Feeling any chest pain, shortness of breath or palpitations. She is requesting to drink water and to be left alone. She is willing to take her medicines 1 given to her by her nurse. She has no other complaints at this time. Pt had a WBC of 11.6, Hemoglobin 14.9, sodium 142, potassium 4.8, chloride of 110, BUN/creatinine of 21 and 0.9 respectively, AST ALT 20 and 20 respectively, magnesium 2.4. 07/29/2024: Pt examined at bedside today. Telemetry reviewed, pt remains to be in afib 120s and 130s. Pt reports she is doing okay and wants to be left alone. BUN 25 and Cr 1.0, potassium 4.2, Mg 2.0, sodium 139. Blood pressure this morning 119/82 this morning. No other complaints at this time. Exam Vital Signs Temp Pulse Resp BP Pulse Ox O2 Del Method O2 Flow Rate 96.8 F 98 20 104/76 92 L Room Air 4 07/29/24 08:00 07/29/24 12:11 07/29/24 11:17 07/29/24 12:11 07/29/24 11:17 07/29/24 08:00 07/24/24 08:22 Narrative Exam Limited physical exam as patient does not want to be examined General: AAOx1, elderly lady might have dementia, redish hair, elderly, frail, looks unkempt HEENT: Dry mucous membranes, conjunctiva clear, EOMI, PERRLA, poor dentition, large lesions seen in corner of right eyebrow resembling squamous cell carcinoma Cardiovascular: S1, S2, radial pulses +2 bilat, tachycardia, irregularly irregular Pulmonary: Difficulty appreciating breath sounds GI: No tenderness to light or deep palpitation, no guarding, rigidity, rebound tenderness or distension Extremities: No presence of trace or pitting edema in lower extremities bilaterally, dorsalis pedis pulses +2 bilaterally Neuro: AAOx1, no focal motor or sensory deficits in the UE or LE bilat Psych: Not very cooperaetive Objective Labs 07/29/24 09:16 07/29/24 09:16 Labs: Laboratory Results - last 24 hr 07/29/24 09:16 WBC 13.0 H RBC 4.43 Hgb 13.4 Hct 41.1 MCV 93 MCH 30.2 MCHC 32.6 RDW Std Deviation 49.2 H Plt Count 362 D Neut % (Auto) 73 Lymph % (Auto) 17 Grimes % (Auto) 7 Eos % (Auto) 0 Baso % (Auto) 1 Neut # (Auto) 9.5 H Lymph # (Auto) 2.3 Grimes # (Auto) 0.9 H Eos # (Auto) 0.0 Baso # (Auto) 0.2 Immature Gran # (Auto) 0.29 H Absolute Nucleated RBC 0.40 H Immature Gran % 2 H Nucleated RBC % 3 H Smear Path Review Sent to Pathologist Sodium 139 Potassium 4.2 D Chloride 106 Carbon Dioxide 18.5 L Anion Gap 15 BUN 25 H Creatinine 1.0 Estim Creat Clear Calc 31.7 L eGFR 58 L BUN/Creatinine Ratio 25 H Glucose 349 H D Calculated Osmolality 295 Calcium 8.4 Corrected Calcium 9.0 Magnesium 2.0 Total Bilirubin 0.2 L AST 23 ALT 20 Alkaline Phosphatase 169 H D Total Protein 6.5 Albumin 3.3 L Globulin 3.2 Albumin/Globulin Ratio 1.0 L Quality Measures Quality Measures none Advance care planning discussed with:: patient Assessment & Plan Assessment Current Active Medications: Generic Name Dose Route Start Last Admin Trade Name Freq PRN Reason Stop Dose Admin Acetaminophen 650 mg 07/24/24 04:51 Acetaminophen 325 Mg Tablet PO 08/23/24 04:50 Q6H PRN Fever >101.5 Acetaminophen 650 mg 07/24/24 04:51 Acetaminophen 325 Mg Tablet PO 08/23/24 04:50 Q6H PRN PAIN SCALE 1-3 (mild Amiodarone HCl 200 mg 07/25/24 14:00 07/29/24 08:53 Amiodarone Hcl 200 Mg Tablet PO 08/24/24 13:59 200 mg BID JOSE Administration Apixaban 2.5 mg 07/24/24 21:00 07/29/24 08:53 Apixaban 2.5 Mg Tablet PO 08/23/24 20:59 2.5 mg BID JOSE Administration Aspirin 81 mg 07/28/24 09:00 07/29/24 08:54 Aspirin Ec 81 Mg Tabec PO 08/27/24 08:59 81 mg QDAY JOSE Administration Atorvastatin Calcium 40 mg 07/28/24 21:00 07/28/24 21:34 Atorvastatin Calcium 20 Mg Tablet PO 08/27/24 20:59 40 mg HS JOSE Administration Buspirone HCl 15 mg 07/24/24 09:00 07/29/24 08:53 Buspirone Hcl 5 Mg Tablet PO 08/23/24 08:59 15 mg BID JOSE Administration Guaifenesin/Dextromethorphan 1 each 07/25/24 10:15 07/29/24 08:52 Guaifenesin/Dm Tablet PO 08/24/24 10:14 1 each BID JOSE Administration Fluconazole 400 mg in 200 mls @ 100 mls/hr 07/24/24 17:23 07/28/24 21:35 Diflucan/Ns Ivpb IV 07/31/24 17:22 100 mls/hr QDAY@2100 JOSE Administration Ceftriaxone Sodium/Dextrose 50 mls @ 100 mls/hr 07/25/24 10:33 07/29/24 08:52 Rocephin/D5w 1gm Iv Premix IV 08/01/24 10:32 100 mls/hr QDAY JOSE Administration Lisinopril 5 mg 07/29/24 10:30 07/29/24 12:11 Lisinopril 2.5 Mg Tablet PO 08/28/24 10:29 Not Given QDAY JOSE Metoprolol Succinate 100 mg 07/30/24 09:00 Metoprolol Succinate Xl 25 Mg Tabcr PO 08/29/24 08:59 BID JOSE Mirtazapine 15 mg 07/28/24 11:05 07/29/24 08:54 Mirtazapine 15 Mg Tablet PO 08/27/24 11:04 15 mg QDAY JOSE Administration Ondansetron HCl 4 mg 07/24/24 04:51 Ondansetron Inj 2 Mg/Ml Inj 2 Ml IV 08/23/24 04:50 Q6H PRN NAUSEA OR VOMITING Protocol Pantoprazole Sodium 40 mg 07/24/24 09:00 07/29/24 08:52 Pantoprazole Inj 40 Mg Vial IVP 08/23/24 08:59 40 mg QDAY JOSE Administration Sennosides 1 tab 07/24/24 09:00 07/29/24 08:53 Senna Tablet PO 08/23/24 08:59 1 tab QDAY JOSE Administration Protocol Plan Assessment Mr. Ryder is a 79-year-old female with past medical history of hypertension, GI bleed secondary to Dahlia-Obregon tear, GERD, alcohol use disorder, unspecified psych disorder who was BIBA from [facility] to the [facility] ED on 07/23/2024 for acute hypoxic respiratory failure with sepsis secondary to pneumonia and A-fib with RVR. #Acute hypoxic respiratory failure #Sepsis secondary to pneumonia, SIRS +3/4, leukocytosis #CAP versus HCAP #Left-sided pleural effusion #Coccidioides IgM positive Patient was initially diagnosed with pneumonia, parapneumonic effusion and [facility], was started on oral levofloxacin, completed 6 out of 7-day course with worsening symptoms and hypoxemia was eventually sent to ER via EMS, patient SpO2 88% on room air, noncompliant with oxygen therapy. Patient has cough and shortness of breath, chest x-ray significant for left base pneumonia, preliminary CTA negative for PE shows bilateral parapneumonic effusion, cardiomegaly and concern of CHF. Curb 65 2 points, moderate risk 6.8% 30-day mortality group, PSI/port score 117 points risk class IV 8.2 to 9.3% mortality. Patient went down for thoracentesis, pleural effusion was not amendable to thoracentesis per IR Will continue with current management to see how patient improves COVID, RSV and flu negative Blood cultures no growth after 2 day MRSA negative, will discontinue antibiotic coverage for MRSA as MRSA risk is low at this time Plan: ?Will continue with Rocephin (Has been on Abx since 07/24) ?DuoNeb treatment as needed ?Continue with fluconazole 400 mg daily ?Follow-up Coccidioides IgG #Atrial fibrillation with RVR #History of HFrEF with systolic and diastolic function, EF 25 to 30% CHADVASC: 4 points HAS-BLED:3 points Patient does have history of Dahlia-Obregon tear and GI bleed Bleeding risk, however patient does need anticoagulation for A-fib with RVR, risk-benefit situation here TSH 1.48 LDL 77, total cholesterol 134 A1c 5.4 Patient does not appear to be in heart failure at this time, however will monitor Patient was on amnio drip previously Rate is not controlled still with Amio 200 mg oral and metoprolol 50 XL, will adjust dosage Will add GDMT therapy as patient tolerates BP, will control heart rate at this time and will prioritize to max beta-ivania Plan: ?Continue with metoprolol 150 XL, may increase to 200 mg XL tomorrow ?Amio 200 mg twice daily po ?Eliquis 2.5 mg twice daily ?Aspirin and Lipitor 40 mg p.o. at bedtime -Consulted cardiology, appreciate recommendations -Strict intake and output, daily weight, fluid restriction 2000 cc -Keep potassium more than 4, magnesium more than 2 #NSTEMI type I versus type II, demand ischemia, resolved Troponin peaked at 0.768 #History of hypertension Blood pressure has been soft we will hold on giving blood pressure medicines at this time Plan: ? Metoprolol 150 XL at this time ? Added Lisinopril 5 mg #Polycythemia, resolved #Thrombocytosis, resolved Plan: ? Trend with CBC #Mild transaminitis, resolved Plan: ?Trend with CMP #Failure to thrive #History of FARTUN Resume Remeron over Megace as this will give some sedating proper for anxiety ties and increased appetite Encouraging oral hydration 2000 cc limit due to patient having heart failure history Plan: ? Resumed home Buspar 15 mg twice daily ? Continue with Remeron 15 mg ? Oral hydration, 2000 cc for fluid restriction #Skin lesion, right sided Highly suspicious for squamous cell carcinoma, however can be other skin cancer such as basal Will require excision rather than biopsy Plan: ?Recommend to follow-up with dermatology outpatient for surgical excision #Health Maintenance Disposition: Telemetry DVT prophylaxis: Eliquis GI prophylaxis: Pantoprazole 40 mg daily Diet: Dysphagia 2 CODE STATUS: Full Patient seen and care discussed with my senior resident, Dr. Wright, and my attending physician, Dr. Brianna Lin, PGY-1 Attending Provider Attestation/Addendum I reviewed labs, imaging, EKG, home medications and prior available records. Face to face evaluation was performed by me. I have personally examined the patient and discussed assessment and plan with the IM team. I reviewed the resident note and agree with the plan with exceptions as below. Acute hypoxic respiratory failure: In the setting of left lower lobe pneumonia. Cocci pneumonia is positive. Started ceftriaxone/doxycycline. Started fluconazole Left pleural effusion: Consult IR for pleurocentesis given the possible associated pneumonia: Insufficient fluids for drainage Atrial fibrillation with rapid ventricular response: Rate is better controlled. Transition to p.o. amio. Increased metoprolol. Ordered echocardiogram that showed severely reduced EF of 25 to 30%. Non-STEMI: Likely in the setting of hypoxia and A-fib with RVR. Troponin peaked. Management as above. Debility: She will go back to SNF once medically cleared Skin lesion: Possible squamous cell carcinoma. Will need biopsy/surgery but we cannot perform at our Medical Center. Close outpatient follow-up.
[2024-07-29] MEDS: ATORVASTATIN CALCIUM 20 MG TABLET 40 MG PO (20:44)
[2024-07-29] MEDS: FLUCONAZOLE/NS 400 MG IVPB 400 MG/200 ML BAG 100 MG IV (20:45)
[2024-07-30] VITALS (8 sets, daily range): BP systolic 96–124; BP diastolic 64–89; PULSE 93–129; RESP 18–33; TEMP 36.1–36.6; O2SAT 93–97
--- NOTE | 2024-07-30 06:07 | PC.NURSE ---
Informed Dr. Jacobsen pt. noncompliant with oral fluids and has no urine output, per Dr. will wait for BMP lab results to come back and order fluids.
[2024-07-30 08:23] LABS: Alanine Aminotransferase 18 U/L (10-49); Albumin, Serum 3.5 gm/dL (3.4-4.8); Albumin/Globulin Ratio 1.4 (1.2-2.2); Alkaline Phosphatase 204 U/L (46-116); Anion Gap 9 (7-16); Aspartate Amino Transferase 23 U/L (0-34); BUN/Creatinine Ratio 28 Ratio (12-20); Bilirubin,Total 0.4 mg/dL (0.3-1.2); Blood Urea Nitrogen 25 mg/dL (9-23); Calcium 9.1 mg/dL (8.3-10.6); Calcium (Corrected) 9.5 mg/dL (8.5-10.1); Carbon Dioxide 19.5 mMol/L (20.0-31.0); Chloride 114 mMol/L (98-107); Creatinine (Component) 0.9 mg/dL (0.6-1.3); Estimated Creatinine Clearance 34.1 mL/min (>60); Globulin 2.5 gm/dL (2.3-3.5); Glucose 113 mg/dL (74-106); Magnesium 1.9 mg/dL (1.6-2.6); Osmolality,Calculated 288 (275-295); Potassium 4.5 mMol/L (3.4-5.1); Sodium 142 mMol/L (136-145); eGFR > 60 See Note
[2024-07-30 08:26] LABS: Basophils # (Auto) 0.2 Thou/mm3 (0.0-0.2); Basophils % (Auto) 1 % (0-2.5); Eosinophils % (Auto) 0 % (0-10); Hematocrit 44.7 % (36.0-46.0); Hemoglobin 14.8 g/dL (12.0-16.0); Immature Granulocytes % (Auto) 2 % (0-0); Immature Granulocytes Auto 0.32 Thou/mm3 (0.00-0.00); Lymphocytes # (Auto) 2.7 Thou/mm3 (1.0-4.8); Lymphocytes % (Auto) 19 % (10-50); Mean Corpuscular HGB Conc 33.1 g/dl (31.0-37.0); Mean Corpuscular Hemoglobin 29.8 pg (25.0-35.0); Mean Corpuscular Volume 90 fL (80-100); Monocytes # (Auto) 0.9 Thou/mm3 (0.0-0.8); Monocytes % (Auto) 7 % (0-12); Neutrophils # (Auto) 9.9 Thou/mm3 (1.8-7.7); Neutrophils % (Auto) 71 % (37-80); Nucleated Red Blood Cell # 0.33 Thou/mm3 (0.00-0.00); Nucleated Red Blood Cell % 2 /100 WBC (0); Platelet Count 382 Thou/mm3 (140-440); RDW Standard Deviation 47.8 fL (36.4-46.3); Red Blood Count 4.96 Miln/mm3 (4.00-5.20)
--- NOTE | 2024-07-30 09:46 | EKG_ITS ---
[facility] Test Date: 2024-07-30 Pat Name: AZAR MONTERO [facility] Gender: Female Advice Nurse: PRAVIN : 1945 Requested By: Jose Miguel Wright Order Number: [id number] Reading MD: Jose Miguel Wright Measurements Intervals Cut Off Rate: 114 P: KS: QRS: 37 QRSD: 90 T: 155 QT: 433 QTc: 599 Interpretive Statements ATRIAL FIBRILLATION WITH RAPID VENTRICULAR RESPONSE WITH ABERRANT CONDUCTION OR VENTRICULAR PREMATURE COMPLEXES LOW QRS VOLTAGE IN EXTREMITY LEADS SEPTAL MYOCARDIAL INFARCTION , OF INDETERMINATE AGE MARKED T-WAVE ABNORMALITY, CONSIDER ANTEROLATERAL ISCHEMIA Compared to ECG 07/25/2024 02:36:46 Ventricular premature complex(es) now present Aberrant conduction of supraventricular beat(s) now present T-wave abnormality now present Possible ischemia now present Myocardial infarct finding still present /store/S0/[id number]
--- NOTE | 2024-07-30 09:47 | PD.RESPRO ---
Documentation for date of: 07/30/24 Subjective Subjective Interval history: 07/30: No acute overnight events reported patient seen and examined at bedside this morning patient has a productive cough telemetry is reviewed and patient remains in A-fib with max heart rate of 123 at minimum hold for now 3 for the last 12 hours. Patient requested to not be spoken to however she denies any chest pain palpitation or dizziness she wants to be left alone because she says she does not know what she wants. Leukocytosis is uptrending patient is on ceftriaxone until the 08/01. potassium is 4.5 and magnesium 1.9. Keep K+ above 4 and Mag above 2 at all times. Exam Vital Signs Temp Pulse Resp BP Pulse Ox O2 Del Method O2 Flow Rate 97.3 F 110 H 33 H 124/89 H 95 Room Air 4 07/30/24 08:00 07/30/24 08:00 07/30/24 08:00 07/30/24 08:00 07/30/24 08:00 07/30/24 08:00 07/29/24 16:00 Narrative Exam GENERAL: A&Ox1. Awake, frail elderly female, cooperative but tired NEURO: no focal neurological deficits noted HEENT: Atraumatic, Normocephalic. mucous membranes moist. Eyes open, symmetrical, & clear, large multiple masses on right upper eye HEART: Normal Heart Sounds LUNGS: clear breath sounds heard bilaterally , no more wheezing heard ABDOMEN: soft, non-distended, non-tender, bowel sounds heard, no guarding or rebound tenderness SKIN: No Rash or ecchymoses EXTREMITIES: No edema, tenderness, able to move all 4 extremities, pedal pulses palpated Objective Labs 07/30/24 07:37 07/30/24 07:37 Labs: Laboratory Results - last 24 hr 07/29/24 07/30/24 09:16 07:37 WBC 13.0 H 14.0 H RBC 4.43 4.96 Hgb 13.4 14.8 Hct 41.1 44.7 MCV 93 90 MCH 30.2 29.8 MCHC 32.6 33.1 RDW Std Deviation 49.2 H 47.8 H Plt Count 362 D 382 Neut % (Auto) 73 71 Lymph % (Auto) 17 19 [place] % (Auto) 7 7 Eos % (Auto) 0 0 Baso % (Auto) 1 1 Neut # (Auto) 9.5 H 9.9 H Lymph # (Auto) 2.3 2.7 [place] # (Auto) 0.9 H 0.9 H Eos # (Auto) 0.0 0.0 Baso # (Auto) 0.2 0.2 Immature Gran # (Auto) 0.29 H 0.32 H Absolute Nucleated RBC 0.40 H 0.33 H Immature Gran % 2 H 2 H Nucleated RBC % 3 H 2 H Smear Path Review Sent to Pathologist Sodium 139 142 Potassium 4.2 D 4.5 Chloride 106 114 H Carbon Dioxide 18.5 L 19.5 L Anion Gap 15 9 BUN 25 H 25 H Creatinine 1.0 0.9 Estim Creat Clear Calc 31.7 L 34.1 L eGFR 58 L > 60 BUN/Creatinine Ratio 25 H 28 H Glucose 349 H D 113 H D Calculated Osmolality 295 288 Calcium 8.4 9.1 Corrected Calcium 9.0 9.5 Magnesium 2.0 1.9 Total Bilirubin 0.2 L 0.4 AST 23 23 ALT 20 18 Alkaline Phosphatase 169 H D 204 H D Total Protein 6.5 6.0 Albumin 3.3 L 3.5 Globulin 3.2 2.5 Albumin/Globulin Ratio 1.0 L 1.4 Quality Measures Quality Measures none Advance care planning discussed with:: patient Assessment & Plan Assessment Current Active Medications: Generic Name Dose Route Start Last Admin Trade Name Freq PRN Reason Stop Dose Admin Acetaminophen 650 mg 07/24/24 04:51 Acetaminophen 325 Mg Tablet PO 08/23/24 04:50 Q6H PRN Fever >101.5 Acetaminophen 650 mg 07/24/24 04:51 Acetaminophen 325 Mg Tablet PO 08/23/24 04:50 Q6H PRN PAIN SCALE 1-3 (mild Amiodarone HCl 200 mg 07/25/24 14:00 07/29/24 20:44 Amiodarone Hcl 200 Mg Tablet PO 08/24/24 13:59 200 mg BID JOSE Administration Apixaban 2.5 mg 07/24/24 21:00 07/29/24 20:45 Apixaban 2.5 Mg Tablet PO 08/23/24 20:59 2.5 mg BID JOSE Administration Aspirin 81 mg 07/28/24 09:00 07/29/24 08:54 Aspirin Ec 81 Mg Tabec PO 08/27/24 08:59 81 mg QDAY JOSE Administration Atorvastatin Calcium 40 mg 07/28/24 21:00 07/29/24 20:44 Atorvastatin Calcium 20 Mg Tablet PO 08/27/24 20:59 40 mg HS JOSE Administration Buspirone HCl 15 mg 07/24/24 09:00 07/29/24 20:44 Buspirone Hcl 5 Mg Tablet PO 08/23/24 08:59 15 mg BID JOSE Administration Guaifenesin/Dextromethorphan 1 each 07/25/24 10:15 07/29/24 20:44 Guaifenesin/Dm Tablet PO 08/24/24 10:14 1 each BID JOSE Administration Fluconazole 400 mg in 200 mls @ 100 mls/hr 07/24/24 17:23 07/29/24 20:45 Diflucan/Ns Ivpb IV 07/31/24 17:22 100 mls/hr QDAY@2100 JOSE Administration Ceftriaxone Sodium/Dextrose 50 mls @ 100 mls/hr 07/25/24 10:33 07/29/24 08:52 Rocephin/D5w 1gm Iv Premix IV 08/01/24 10:32 100 mls/hr QDAY JOSE Administration Lisinopril 5 mg 07/29/24 10:30 07/29/24 12:11 Lisinopril 2.5 Mg Tablet PO 08/28/24 10:29 Not Given QDAY JOSE Metoprolol Succinate 100 mg 07/30/24 09:00 Metoprolol Succinate Xl 25 Mg Tabcr PO 08/29/24 08:59 BID JOSE Mirtazapine 15 mg 07/28/24 11:05 07/29/24 08:54 Mirtazapine 15 Mg Tablet PO 08/27/24 11:04 15 mg QDAY JOSE Administration Ondansetron HCl 4 mg 07/24/24 04:51 Ondansetron Inj 2 Mg/Ml Inj 2 Ml IV 08/23/24 04:50 Q6H PRN NAUSEA OR VOMITING Protocol Pantoprazole Sodium 40 mg 07/24/24 09:00 07/29/24 08:52 Pantoprazole Inj 40 Mg Vial IVP 08/23/24 08:59 40 mg QDAY JOSE Administration Sennosides 1 tab 07/24/24 09:00 07/29/24 08:53 Senna Tablet PO 08/23/24 08:59 1 tab QDAY JOSE Administration Protocol Plan Ms. Ryder is a 79 year old female with past medical history significant for history of HTN, Hx of a-fib noted on EKG from 2021 and GI bleed secondary to D[place]ia-[place] tear in 2021 likely related to alcohol use disorder brought by ambulance due to low oxygen saturations at the nursing facility. Pt is admitted to the hospital for IV antibiotics and diltiazam drip as pt was found to be in A-fib with RVR. # Sepsis secondary to #Hospital-acquired pneumonia #Cocci pneumonia # Pleural effusions -Chest CTA is evident of moderate left and mild right pleural effusions as well as pneumonia on the left base -Pts cocci IgM is positive- Pt is started on fluconazole -Per primary hospitalist team patient is started on IV antibiotics with doxycycline 100 Mg IV twice daily #Paroxysmal A-fib with RVR -EKG from 2021 showed patient has history of A-fib and patient home medication include metoprolol 25 Mg daily for rate control -Patient is started on diltiazem drip 10 Mg/hr in the ED -Patient will be transition to metoprolol 100 Mg daily or 50 Mg twice daily and 2 hours after metoprolol is given patient's diltiazem drip to be turned off. -[id number] score 4 points (age greater than 75, female, hypertension history). -HAS-BLED score for major bleeding risk for this patient is 3 points. Pt is started on Eliquis 2.5 mg twice daily for anticoagulation. -Keep potassium more than 4, magnesium more than 2 at all times -echocardiogram on 07/25/2024 showed severely decreased LV function with an EF of 25 to 30% with moderately decreased RV function. Diastolic dysfunction present but cannot breathe because of A-fib. Mild PAH with estimated RVSP of 40 mmHg. Moderate MAC along with mild to moderate aortic valve sclerosis without stenosis. Moderate eccentric MR as well as TR. Mild AI and mild biatrial dilatation. -Patient has evidence of severe systolic dysfunction along with moderate RV dysfunction, diastolic dysfunction and moderate valvular heart disease. Patient does not appear to be fluid overloaded therefore will hold started diueretics -No Cardizem given due to the LV systolic dysfunction Based on the echo findings -Pt is taking amiodarone 200mg BID, eliquis 2.5 BID and metoprolol succinate 100mg XL BID. 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 Patient will need to be on goal-directed medical therapy with beta-ivania, JACOB inhibitor's as well as spironolactone but patient is hypotensive as noted above and will hold off on the GDMT for now and can be reintroduced one by one - pt is started on beta-ivania for rate control. #elevated troponins- likely in the setting of NSTEMI type ll (demand ischemia) -on initial presentation patient had elevated troponins at 0.768 which have now downtrended to 0.574. No further troponin trending is needed. Pt does not exhibit any symptoms of NH, Pt denies chest pain, or pressure. -EKG did not show any acute ST changes or history of any ischemia -Recommend aspirin if tolerated along with statin and beta-ivania. # Primary hypertension -Patient has a history of primary hypertension for which patient takes amlodipine 5 mg daily however on arrival in the ED patient blood pressure is 104/79 and today patient's blood pressure is 105/78 therefore will continue to hold home antihypertensive until permissible Assessment and plan discussed with my attending physician Dr. Corona Cruz (PGY-1)- Internal medicine resident Attending Provider Attestation/Addendum I have personally seen and examined the patient separately on the above date of service and discussed the plan of care with the resident. I reviewed the resident Dr. Desire Cruz consultation progress note and agree with the resident findings and plan in the note above and have also edited the documentation to reflect my findings and plan. Patient breathing continues to improve but she is still on oxygen via nasal cannula intermittently. Telemetry reviewed and heart rate is well-controlled between 95 and 115 bpm Patient is a maximum dose of metoprolol XL at 100 mg twice daily as well as amiodarone 200 mg twice daily which we recommend to continue. Can change to metoprolol XL 200 mg tablet once daily in the morning Check EKG to evaluate the QTc for the patient. Will continue with rate control strategy with target heart rate of 80-110 bpm given the same mortality benefit for her with rhythm control especially for this patient. No additional AV ivania needed at the present point of time for rate control and patient's heart rate will continue to improve with the the treatment of sepsis and pneumonia. Given the patient's severe systolic dysfunction patient does need goal-directed medical therapy but patient blood pressure is soft with the metoprolol XL and eventually patient needs to be started on Entresto and ARB or spironolactone as outpatient if BP permissible and kidney function stable Keep potassium greater than 4 magnesium greater than 2.0 at all times. Continue telemetry Leon Jeter M.D. Interventional Cardiology
--- NOTE | 2024-07-30 09:55 | ESPR_ITS ---
Documentation for date of: 07/30/24 Subjective Subjective Interval history: HPI limited as patient does not want to answer questions and is a poor historian 07/24/2024: Patient examined at bedside today. Is not experiencing any pain at this time. Telemetry reviewed highest heart rate was in 200s, right now it is at 100s. It is not experiencing any chest pain or shortness of breath. Patient is unable to fully answer a lot of questions as she is a poor historian. Patient is continue with dill drip at this time no complaints at this time 07/25/2024: Patient examined at bedside today. Telemetry reviewed, patient is still in A-fib, heart rate going up to the 170s, rate has been around the 130s, Amio drip started overnight after patient was given Cardizem and remained to be in A-fib with RVR. Patient reports he is not experiencing chest pain, palpitation or shortness of breath. She continues to be a poor historian and seems a bit lethargic. She is still able to answer some questions. BUN/creatinine 9 and 0.6 respectively, potassium 4.1, magnesium 2, white count of 11.3, hemoglobin 14.9. 07/27/2024: Pt examined at bedside today. Telemetry reviewed, patient remains to be in the 130s still in A-fib. Patient reports that she does not want to be examined much today. Does not have any shortness of breath or chest pain. She also just wants to be left alone at this time. Patient has a white count of 9.5, hemoglobin 14.3, 4.4, chloride of 111, BUN/creatinine of 19 and 0.8 respectively, magnesium 2.1, phosphorus 2.9, AST ALT 25 and 18 respectively. No other complaints at this time 07/28/2024, patient examined at bedside today. Telemetry reviewed and patient appears to be still in atrial fibrillation rate in the 120s to 130s, max 143. Patient reports she is doing okay today Feeling any chest pain, shortness of breath or palpitations. She is requesting to drink water and to be left alone. She is willing to take her medicines 1 given to her by her nurse. She has no other complaints at this time. Pt had a WBC of 11.6, Hemoglobin 14.9, sodium 142, potassium 4.8, chloride of 110, BUN/creatinine of 21 and 0.9 respectively, AST ALT 20 and 20 respectively, magnesium 2.4. 07/29/2024: Pt examined at bedside today. Telemetry reviewed, pt remains to be in afib 120s and 130s. Pt reports she is doing okay and wants to be left alone. BUN 25 and Cr 1.0, potassium 4.2, Mg 2.0, sodium 139. Blood pressure this morning 119/82 this morning. No other complaints at this time. 07/30/2024: Pt examined at bedside today. Telemetry reviewed, pt appears still to be in afib, rate 100-110s. Pt reports she is doing good. She is much more alert and awake today and responding to questions. Says she is not having CP, palpitations or SOB at this time. WBC of 14, hgb 14.8, sodium 142, 4.5, bicarb 20, BUN/Cr 25 and 0.9 respectively, Mag 1.9. No other complaints at this time. Exam Vital Signs Temp Pulse Resp BP Pulse Ox O2 Del Method O2 Flow Rate 97.3 F 110 H 33 H 124/89 H 95 Room Air 4 07/30/24 08:00 07/30/24 08:00 07/30/24 08:00 07/30/24 08:00 07/30/24 08:00 07/30/24 08:00 07/29/24 16:00 Narrative Exam Limited physical exam as patient does not want to be examined General: AAOx1, elderly lady might have dementia, redish hair, elderly, frail, responsive and alert today HEENT: Dry mucous membranes, conjunctiva clear, EOMI, PERRLA, poor dentition, large lesions seen in corner of right eyebrow resembling squamous cell carcinoma Cardiovascular: S1, S2, radial pulses +2 bilat, tachycardia, irregularly irregular Pulmonary: Difficulty appreciating breath sounds GI: No tenderness to light or deep palpitation, no guarding, rigidity, rebound tenderness or distension Extremities: No presence of trace or pitting edema in lower extremities bilaterally, dorsalis pedis pulses +2 bilaterally Neuro: AAOx1, no focal motor or sensory deficits in the UE or LE bilat Psych: Not very cooperative Objective Labs 07/30/24 07:37 07/30/24 07:37 Labs: Laboratory Results - last 24 hr 07/29/24 07/30/24 09:16 07:37 WBC 13.0 H 14.0 H RBC 4.43 4.96 Hgb 13.4 14.8 Hct 41.1 44.7 MCV 93 90 MCH 30.2 29.8 MCHC 32.6 33.1 RDW Std Deviation 49.2 H 47.8 H Plt Count 362 D 382 Neut % (Auto) 73 71 Lymph % (Auto) 17 19 [place] % (Auto) 7 7 Eos % (Auto) 0 0 Baso % (Auto) 1 1 Neut # (Auto) 9.5 H 9.9 H Lymph # (Auto) 2.3 2.7 [place] # (Auto) 0.9 H 0.9 H Eos # (Auto) 0.0 0.0 Baso # (Auto) 0.2 0.2 Immature Gran # (Auto) 0.29 H 0.32 H Absolute Nucleated RBC 0.40 H 0.33 H Immature Gran % 2 H 2 H Nucleated RBC % 3 H 2 H Smear Path Review Sent to Pathologist Sodium 139 142 Potassium 4.2 D 4.5 Chloride 106 114 H Carbon Dioxide 18.5 L 19.5 L Anion Gap 15 9 BUN 25 H 25 H Creatinine 1.0 0.9 Estim Creat Clear Calc 31.7 L 34.1 L eGFR 58 L > 60 BUN/Creatinine Ratio 25 H 28 H Glucose 349 H D 113 H D Calculated Osmolality 295 288 Calcium 8.4 9.1 Corrected Calcium 9.0 9.5 Magnesium 2.0 1.9 Total Bilirubin 0.2 L 0.4 AST 23 23 ALT 20 18 Alkaline Phosphatase 169 H D 204 H D Total Protein 6.5 6.0 Albumin 3.3 L 3.5 Globulin 3.2 2.5 Albumin/Globulin Ratio 1.0 L 1.4 Quality Measures Quality Measures none Advance care planning discussed with:: patient Assessment & Plan Assessment Current Active Medications: Generic Name Dose Route Start Last Admin Trade Name Freq PRN Reason Stop Dose Admin Acetaminophen 650 mg 07/24/24 04:51 Acetaminophen 325 Mg Tablet PO 08/23/24 04:50 Q6H PRN Fever >101.5 Acetaminophen 650 mg 07/24/24 04:51 Acetaminophen 325 Mg Tablet PO 08/23/24 04:50 Q6H PRN PAIN SCALE 1-3 (mild Amiodarone HCl 200 mg 07/25/24 14:00 07/29/24 20:44 Amiodarone Hcl 200 Mg Tablet PO 08/24/24 13:59 200 mg BID JOSE Administration Apixaban 2.5 mg 07/24/24 21:00 07/29/24 20:45 Apixaban 2.5 Mg Tablet PO 08/23/24 20:59 2.5 mg BID JOSE Administration Aspirin 81 mg 07/28/24 09:00 07/29/24 08:54 Aspirin Ec 81 Mg Tabec PO 08/27/24 08:59 81 mg QDAY JOSE Administration Atorvastatin Calcium 40 mg 07/28/24 21:00 07/29/24 20:44 Atorvastatin Calcium 20 Mg Tablet PO 08/27/24 20:59 40 mg HS JOSE Administration Buspirone HCl 15 mg 07/24/24 09:00 07/29/24 20:44 Buspirone Hcl 5 Mg Tablet PO 08/23/24 08:59 15 mg BID JOSE Administration Guaifenesin/Dextromethorphan 1 each 07/25/24 10:15 07/29/24 20:44 Guaifenesin/Dm Tablet PO 08/24/24 10:14 1 each BID JOSE Administration Fluconazole 400 mg in 200 mls @ 100 mls/hr 07/24/24 17:23 07/29/24 20:45 Diflucan/Ns Ivpb IV 07/31/24 17:22 100 mls/hr QDAY@2100 JOSE Administration Ceftriaxone Sodium/Dextrose 50 mls @ 100 mls/hr 07/25/24 10:33 07/29/24 08:52 Rocephin/D5w 1gm Iv Premix IV 08/01/24 10:32 100 mls/hr QDAY JOSE Administration Magnesium Sulfate/Dextrose 1 gm in 100 mls @ 100 mls/hr 07/30/24 09:48 Magnesium Sulfate Ivpb IV 07/30/24 10:47 X1 ONE Lisinopril 5 mg 07/29/24 10:30 07/29/24 12:11 Lisinopril 2.5 Mg Tablet PO 08/28/24 10:29 Not Given QDAY JOSE Metoprolol Succinate 150 mg 07/30/24 09:55 Metoprolol Succinate Xl 25 Mg Tabcr PO 08/29/24 09:54 QDAY JOSE Metoprolol Tartrate 50 mg 07/30/24 21:00 Metoprolol Tartrate 25 Mg Tablet PO 08/29/24 20:59 HS JOSE Mirtazapine 15 mg 07/28/24 11:05 07/29/24 08:54 Mirtazapine 15 Mg Tablet PO 08/27/24 11:04 15 mg QDAY JOSE Administration Ondansetron HCl 4 mg 07/24/24 04:51 Ondansetron Inj 2 Mg/Ml Inj 2 Ml IV 08/23/24 04:50 Q6H PRN NAUSEA OR VOMITING Protocol Pantoprazole Sodium 40 mg 07/24/24 09:00 07/29/24 08:52 Pantoprazole Inj 40 Mg Vial IVP 08/23/24 08:59 40 mg QDAY JOSE Administration Plan Assessment Mr. Ryder is a 79-year-old female with past medical history of hypertension, GI bleed secondary to D[place]ia-[place] tear, GERD, alcohol use disorder, unspecified psych disorder who was BIBA from [facility] to [facility] ED on 07/23/2024 for acute hypoxic respiratory failure with sepsis secondary to pneumonia and A-fib with RVR. #Acute hypoxic respiratory failure #Sepsis secondary to pneumonia, SIRS +3/4, leukocytosis #CAP versus HCAP #Left-sided pleural effusion #Coccidioides IgM positive Patient was initially diagnosed with pneumonia, parapneumonic effusion and [facility], was started on oral levofloxacin, completed 6 out of 7-day course with worsening symptoms and hypoxemia was eventually sent to ER via EMS, patient SpO2 88% on room air, noncompliant with oxygen therapy. Patient has cough and shortness of breath, chest x-ray significant for left base pneumonia, preliminary CTA negative for PE shows bilateral parapneumonic effusion, cardiomegaly and concern of CHF. Curb 65 2 points, moderate risk 6.8% 30-day mortality group, PSI/port score 117 points risk class IV 8.2 to 9.3% mortality. Patient went down for thoracentesis, pleural effusion was not amendable to thoracentesis per IR Will continue with current management to see how patient improves COVID, RSV and flu negative Blood cultures no growth after 2 day MRSA negative, will discontinue antibiotic coverage for MRSA as MRSA risk is low at this time Plan: ?Will continue with Rocephin (Has been on Abx since 07/24) ?DuoNeb treatment as needed ?Continue with fluconazole 400 mg daily ?Follow-up Coccidioides IgG #Atrial fibrillation with RVR #History of HFrEF with systolic and diastolic function, EF 25 to 30% CHADVASC: 4 points HAS-BLED:3 points Patient does have history of D[place]ia-[place] tear and GI bleed Bleeding risk, however patient does need anticoagulation for A-fib with RVR, risk-benefit situation here TSH 1.48 LDL 77, total cholesterol 134 A1c 5.4 Patient does not appear to be in heart failure at this time, however will monitor Patient was on amnio drip previously Rate is not controlled still with Amio 200 mg oral and metoprolol 50 XL, will adjust dosage Will add GDMT therapy as patient tolerates BP, will control heart rate at this time and will prioritize to max beta-ivania Will see how patient tolerates with 150 XL dose now, and see if she can tolerate 50 at night HR seems to be elevated throughout night, so this is why we are considering dose at night Plan: ?Continue with metoprolol 150 XL in morning, metoprolol 50 mg XL every night ?Amio 200 mg twice daily po ?Eliquis 2.5 mg twice daily ?Aspirin and Lipitor 40 mg p.o. at bedtime -Consulted cardiology, appreciate recommendations -Strict intake and output, daily weight, fluid restriction 2000 cc -Keep potassium more than 4, magnesium more than 2 #NSTEMI type I versus type II, demand ischemia, resolved Troponin peaked at 0.768 #History of hypertension Blood pressure has been soft we will hold on giving blood pressure medicines at this time Plan: ? Metoprolol 150 XL at this time with metoprolol 50 XL at night ? Holding Lisinopril 5 mg #Polycythemia, resolved #Thrombocytosis, resolved Plan: ? Trend with CBC #Mild transaminitis, resolved Plan: ?Trend with CMP #Failure to thrive #History of FARTUN Resume Remeron over Megace as this will give some sedating proper for anxiety ties and increased appetite Encouraging oral hydration 2000 cc limit due to patient having heart failure history Plan: ? Resumed home Buspar 15 mg twice daily ? Continue with Remeron 15 mg ? Oral hydration, 2000 cc for fluid restriction #Skin lesion, right sided Highly suspicious for squamous cell carcinoma, however can be other skin cancer such as basal Will require excision rather than biopsy Plan: ?Recommend to follow-up with dermatology outpatient for surgical excision #Health Maintenance Disposition: Telemetry DVT prophylaxis: Eliquis GI prophylaxis: Pantoprazole 40 mg daily Diet: Dysphagia 2 CODE STATUS: Full Patient seen and care discussed with my senior resident, Dr. Wright, and my attending physician, Dr. Brianna Lin, PGY-1 Attending Provider Attestation/Addendum I reviewed labs, imaging, EKG, home medications and prior available records. Face to face evaluation was performed by me. I have personally examined the patient and discussed assessment and plan with the IM team. I reviewed the resident note and agree with the plan with exceptions as below. Acute hypoxic respiratory failure: In the setting of left lower lobe pneumonia. Cocci pneumonia is positive. Started ceftriaxone/doxycycline. Started fluconazole Left pleural effusion: Consult IR for pleurocentesis given the possible associated pneumonia: Insufficient fluids for drainage Atrial fibrillation with rapid ventricular response: Rate is better controlled. Transitioned to p.o. amio. Increased metoprolol. Ordered echocardiogram that showed severely reduced EF of 25 to 30%. Non-STEMI: Likely in the setting of hypoxia and A-fib with RVR. Troponin peaked. Management as above. Debility: She will go back to SNF once medically cleared Skin lesion: Possible squamous cell carcinoma. Will need biopsy/surgery but we cannot perform at our Medical Center. Close outpatient follow-up.
[2024-07-30] MEDS: PANTOPRAZOLE INJ 40 MG VIAL IVP (10:42)
[2024-07-30] MEDS: APIXABAN 2.5 MG TABLET PO ×2 (10:42→20:57)
[2024-07-30] MEDS: BusPIRone HCL 5 MG TABLET 15 MG PO ×2 (10:42→20:57)
[2024-07-30] MEDS: ASPIRIN EC 81 MG TABEC PO (10:42)
[2024-07-30] MEDS: guaiFENesin/DM TABLET 1 EACH PO ×2 (10:42→20:58)
[2024-07-30] MEDS: MIRTAZAPINE 15 MG TABLET PO (10:42)
[2024-07-30] MEDS: cefTRIAXone/D5w 1gm IV premix 50 ML IV (10:43)
[2024-07-30] MEDS: AMIODARONE HCL 200 MG TABLET PO ×2 (10:43→20:57)
[2024-07-30] MEDS: Magnesium Sulfate 1 gm Ivpb 1 GM/100 ML BAG IV (10:43)
--- NOTE | 2024-07-30 12:26 | PC.NURSE ---
Patient refusing oral hydration
[2024-07-30] MEDS: FLUCONAZOLE/NS 400 MG IVPB 400 MG/200 ML BAG 100 MG IV (20:56)
[2024-07-30] MEDS: ATORVASTATIN CALCIUM 20 MG TABLET 40 MG PO (20:57)
[2024-07-31] VITALS (8 sets, daily range): BP systolic 101–136; BP diastolic 74–90; PULSE 100–118; RESP 17–24; TEMP 36.1–36.6; O2SAT 92–98
[2024-07-31] MEDS: MIRTAZAPINE 15 MG TABLET PO (09:47)
[2024-07-31] MEDS: APIXABAN 2.5 MG TABLET PO (09:47)
[2024-07-31] MEDS: ASPIRIN 81 MG CHEW PO (09:47)
[2024-07-31] MEDS: BusPIRone HCL 5 MG TABLET 15 MG PO (09:48)
[2024-07-31] MEDS: AMIODARONE HCL 200 MG TABLET PO (09:48)
[2024-07-31] MEDS: cefTRIAXone/D5w 1gm IV premix 50 ML IV (09:49)
[2024-07-31] MEDS: PANTOPRAZOLE INJ 40 MG VIAL IVP (09:49)
[2024-07-31] MEDS: Magnesium Sulfate 1 gm Ivpb 1 GM/100 ML BAG IV (09:50)
[2024-07-31] MEDS: guaiFENesin/DM TABLET 1 EACH PO (09:54)
--- NOTE | 2024-07-31 09:59 | PD.RESPRO ---
Documentation for date of: 07/31/24 Subjective Subjective Interval history: 07/31: no acute overnight events reported. Patient is seen and examined at bedside this morning patient states she does not have an appetite and did not feel like eating very much this morning. Saturating above 94% on room air patient denies chest pain chest pressure or palpitations. telemetry is reviewed patient is not in A-fib heart rate is around 117. Patient metoprolol to tartrate is changed to 75 Mg every 8 hours. She states she has no complaints and nothing is bothering her currently. Potassium is 4.3 and magnesium 1.9. Exam Vital Signs Temp Pulse Resp BP Pulse Ox O2 Del Method O2 Flow Rate 97.6 F 115 H 18 112/84 97 Room Air 4 07/31/24 04:00 07/31/24 09:48 07/31/24 04:00 07/31/24 09:48 07/31/24 04:00 07/31/24 04:00 07/29/24 16:00 Narrative Exam GENERAL: A&Ox1. Awake, frail elderly female, cooperative but tired NEURO: no focal neurological deficits noted HEENT: Atraumatic, Normocephalic. mucous membranes moist. Eyes open, symmetrical, & clear, large multiple masses on right upper eye HEART: Normal Heart Sounds LUNGS: clear breath sounds heard bilaterally , no more wheezing heard ABDOMEN: soft, non-distended, non-tender, bowel sounds heard, no guarding or rebound tenderness SKIN: No Rash or ecchymoses EXTREMITIES: No edema, tenderness, able to move all 4 extremities, pedal pulses palpated Objective Labs 07/31/24 09:56 07/31/24 09:56 Quality Measures Quality Measures none Advance care planning discussed with:: patient Assessment & Plan Assessment Current Active Medications: Generic Name Dose Route Start Last Admin Trade Name Freq PRN Reason Stop Dose Admin Acetaminophen 650 mg 07/24/24 04:51 Acetaminophen 325 Mg Tablet PO 08/23/24 04:50 Q6H PRN Fever >101.5 Acetaminophen 650 mg 07/24/24 04:51 Acetaminophen 325 Mg Tablet PO 08/23/24 04:50 Q6H PRN PAIN SCALE 1-3 (mild Amiodarone HCl 200 mg 07/25/24 14:00 07/31/24 09:48 Amiodarone Hcl 200 Mg Tablet PO 08/24/24 13:59 200 mg BID JOSE Administration Apixaban 2.5 mg 07/24/24 21:00 07/31/24 09:47 Apixaban 2.5 Mg Tablet PO 08/23/24 20:59 2.5 mg BID JOSE Administration Aspirin 81 mg 07/31/24 09:45 07/31/24 09:47 Aspirin 81 Mg Chew PO 08/30/24 09:44 81 mg QDAY JOSE Administration Atorvastatin Calcium 40 mg 07/28/24 21:00 07/30/24 20:57 Atorvastatin Calcium 20 Mg Tablet PO 08/27/24 20:59 40 mg HS JOSE Administration Buspirone HCl 15 mg 07/24/24 09:00 07/31/24 09:48 Buspirone Hcl 5 Mg Tablet PO 08/23/24 08:59 15 mg BID JOSE Administration Guaifenesin/Dextromethorphan 1 each 07/25/24 10:15 07/31/24 09:54 Guaifenesin/Dm Tablet PO 08/24/24 10:14 1 each BID JOSE Administration Fluconazole 400 mg in 200 mls @ 100 mls/hr 07/24/24 17:23 07/30/24 20:56 Diflucan/Ns Ivpb IV 07/31/24 17:22 100 mls/hr QDAY@2100 JOSE Administration Ceftriaxone Sodium/Dextrose 50 mls @ 100 mls/hr 07/25/24 10:33 07/31/24 09:49 Rocephin/D5w 1gm Iv Premix IV 08/01/24 10:32 100 mls/hr QDAY JOSE Administration Lisinopril 5 mg 07/29/24 10:30 07/30/24 10:43 Lisinopril 2.5 Mg Tablet PO 08/28/24 10:29 Not Given QDAY JOSE Metoprolol Succinate 100 mg 07/31/24 09:45 Metoprolol Succinate Xl 25 Mg Tabcr PO 08/30/24 09:44 BID JOSE Mirtazapine 15 mg 07/28/24 11:05 07/31/24 09:47 Mirtazapine 15 Mg Tablet PO 08/27/24 11:04 15 mg QDAY JOSE Administration Ondansetron HCl 4 mg 07/24/24 04:51 Ondansetron Inj 2 Mg/Ml Inj 2 Ml IV 08/23/24 04:50 Q6H PRN NAUSEA OR VOMITING Protocol Pantoprazole Sodium 40 mg 07/24/24 09:00 07/31/24 09:49 Pantoprazole Inj 40 Mg Vial IVP 08/23/24 08:59 40 mg QDAY JOSE Administration Plan Ms. Ryder is a 79 year old female with past medical history significant for history of HTN, Hx of a-fib noted on EKG from 2021 and GI bleed secondary to D[place]ia-[place] tear in 2021 likely related to alcohol use disorder brought by ambulance due to low oxygen saturations at the nursing facility. Pt is admitted to the hospital for IV antibiotics and diltiazam drip as pt was found to be in A-fib with RVR. # Sepsis secondary to #Hospital-acquired pneumonia #Cocci pneumonia # Pleural effusions -Chest CTA is evident of moderate left and mild right pleural effusions as well as pneumonia on the left base -Pts cocci IgM is positive- Pt is started on fluconazole -Per primary hospitalist team patient is started on IV antibiotics with doxycycline 100 Mg IV twice daily #Paroxysmal A-fib with RVR -EKG from 2021 showed patient has history of A-fib and patient home medication include metoprolol 25 Mg daily for rate control -Patient is started on diltiazem drip 10 Mg/hr in the ED -Patient will be transition to metoprolol 100 Mg daily or 50 Mg twice daily and 2 hours after metoprolol is given patient's diltiazem drip to be turned off. -[id number] score 4 points (age greater than 75, female, hypertension history). -HAS-BLED score for major bleeding risk for this patient is 3 points. Pt is started on Eliquis 2.5 mg twice daily for anticoagulation. -echocardiogram on 07/25/2024 showed severely decreased LV function with an EF of 25 to 30% with moderately decreased RV function. Diastolic dysfunction present but cannot breathe because of A-fib. Mild PAH with estimated RVSP of 40 mmHg. Moderate MAC along with mild to moderate aortic valve sclerosis without stenosis. Moderate eccentric MR as well as TR. Mild AI and mild biatrial dilatation. -Patient has evidence of severe systolic dysfunction along with moderate RV dysfunction, diastolic dysfunction and moderate valvular heart disease. 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 Patient will need to be on goal-directed medical therapy with beta-ivania, JACOB inhibitor's as well as spironolactone but patient is hypotensive as noted above and will hold off on the GDMT for now and can be reintroduced one by one -eventually patient needs to be started on Entresto and ARB or spironolactone as outpatient if BP permissible and kidney function stable #elevated troponins- likely in the setting of NSTEMI type ll (demand ischemia) -on initial presentation patient had elevated troponins at 0.768 which have now downtrended to 0.574. No further troponin trending is needed. Pt does not exhibit any symptoms of MN, Pt denies chest pain, or pressure. -EKG did not show any acute ST changes or history of any ischemia -Recommend aspirin if tolerated along with statin and beta-ivania. # Primary hypertension -Patient has a history of primary hypertension for which patient takes amlodipine 5 mg daily however on arrival in the ED patient blood pressure is 104/79 and today patient's blood pressure is 105/78 therefore will continue to hold home antihypertensive until permissible Assessment and plan discussed with my attending physician Dr. Corona Cruz (PGY-1)- Internal medicine resident Attending Provider Attestation/Addendum I have personally seen and examined the patient separately on the above date of service and discussed the plan of care with the resident. I reviewed the resident Dr. Desire Cruz consultation progress note and agree with the resident findings and plan in the note above and have also edited the documentation to reflect my findings and plan. Patient breathing continues to improve but she is still on oxygen via nasal cannula intermittently. Telemetry reviewed and heart rate is well-controlled between 95 and 115 bpm Patient is a maximum dose of metoprolol XL at 100 mg twice daily as well as amiodarone 200 mg twice daily which we recommend to continue. Unfortunately patient unable to take metoprolol XL tablets and recommended to change to metoprolol tartrate as per pharmacy recommendation. Increased metoprolol tartrate to 75 mg every 8 hours for better rate control. Will continue with rate control strategy with target heart rate of 80-110 bpm given the same mortality benefit for her with rhythm control especially for this patient. No additional AV ivania needed at the present point of time for rate control and patient's heart rate will continue to improve with the the treatment of sepsis and pneumonia. Given the patient's severe systolic dysfunction patient does need goal-directed medical therapy but patient blood pressure is soft with the metoprolol XL and eventually patient needs to be started on Entresto and ARB or spironolactone as outpatient if BP permissible and kidney function stable Keep potassium greater than 4 magnesium greater than 2.0 at all times. If patient is to be discharged patient should follow-up with outpatient cardiology for his CHF as well as A-fib. Leon Jeter M.D. Interventional Cardiology
[2024-07-31] MEDS: METOPROLOL TARTRATE 25 MG TABLET 150 MG PO (10:04)
[2024-07-31 10:40] LABS: Basophils # (Auto) 0.2 Thou/mm3 (0.0-0.2); Basophils % (Auto) 2 % (0-2.5); Eosinophils # (Auto) 0.1 Thou/mm3 (0.0-0.5); Eosinophils % (Auto) 1 % (0-10); Hematocrit 42.8 % (36.0-46.0); Hemoglobin 14.2 g/dL (12.0-16.0); Immature Granulocytes % (Auto) 2 % (0-0); Immature Granulocytes Auto 0.21 Thou/mm3 (0.00-0.00); Lymphocytes # (Auto) 1.8 Thou/mm3 (1.0-4.8); Lymphocytes % (Auto) 18 % (10-50); Mean Corpuscular HGB Conc 33.2 g/dl (31.0-37.0); Mean Corpuscular Hemoglobin 29.8 pg (25.0-35.0); Mean Corpuscular Volume 90 fL (80-100); Monocytes # (Auto) 0.6 Thou/mm3 (0.0-0.8); Monocytes % (Auto) 6 % (0-12); Neutrophils # (Auto) 7.1 Thou/mm3 (1.8-7.7); Neutrophils % (Auto) 71 % (37-80); Nucleated Red Blood Cell # 0.13 Thou/mm3 (0.00-0.00); Nucleated Red Blood Cell % 1 /100 WBC (0); Platelet Count 336 Thou/mm3 (140-440); RDW Standard Deviation 47.6 fL (36.4-46.3); Red Blood Count 4.76 Miln/mm3 (4.00-5.20); White Blood Count 9.9 Thou/mm3 (3.6-11.0)
[2024-07-31 10:45] LABS: Alanine Aminotransferase 24 U/L (10-49); Albumin, Serum 3.4 gm/dL (3.4-4.8); Albumin/Globulin Ratio 1.4 (1.2-2.2); Alkaline Phosphatase 278 U/L (46-116); Anion Gap 8 (7-16); Aspartate Amino Transferase 40 U/L (0-34); BUN/Creatinine Ratio 24 Ratio (12-20); Bilirubin,Total 0.3 mg/dL (0.3-1.2); Blood Urea Nitrogen 24 mg/dL (9-23); Calcium 8.8 mg/dL (8.3-10.6); Calcium (Corrected) 9.3 mg/dL (8.5-10.1); Carbon Dioxide 21.7 mMol/L (20.0-31.0); Chloride 113 mMol/L (98-107); Estimated Creatinine Clearance 31.6 mL/min (>60); Globulin 2.4 gm/dL (2.3-3.5); Glucose 143 mg/dL (74-106); Magnesium 1.9 mg/dL (1.6-2.6); Osmolality,Calculated 290 (275-295); Potassium 4.3 mMol/L (3.4-5.1); Sodium 143 mMol/L (136-145); Total Protein 5.8 gm/dL (5.7-8.2); eGFR 58 See Note
--- NOTE | 2024-07-31 12:00 | ESDS_ITS ---
Planned Discharge Date 07/31/24 DS: Providers Provider Date of admission: 07/24/24 04:49 Primary care physician: Liliya Hilario MD Admitting Provider: Iwona Anderson MD Attending Provider on Admission: Migue Reed MD Consults: 07/24/24 05:05 Referral Speech Therapy Routine Comment: 07/24/24 07:52 Consult to Cardiology Routine Comment: Consulting Provider: Leon Jeter 07/24/24 15:24 Referral Speech Therapy Stat Comment: 07/25/24 13:37 Referral Registered Dietitian Routine Comment: BMI 18 07/26/24 07:53 Referral Physical Therapy Routine Comment: Physician Instructions: Attending Provider on DC: Migue Reed MD Discharging Provider: Migue Reed MD DS: Diagnosis Problem List Completed Was Problem List Reviewed/Reconciled?: Yes Hospital Course Hospital Course Hospital course: Mr. Ryder is a 79-year-old female with past medical history of hypertension, GI bleed secondary to Dahlia-[place] tear, GERD, alcohol use disorder, unspecified psych disorder who was BIBA from [facility] and admitted to the [facility] ED on 07/23/2024 for new onset of afib with RVR. History was limited as pt was a poor historian. Pt arrived to the ED BP 104/79, P166, RR 22, temp 97.7, O2 sat 92. ED labs on presentation significant for WBC 15.8, RBC 5.49, hemoglobin 16.3, hematocrit 47.3, platelet 460, neutrophil 12.3 PT 13.2 glucose 196 AST 38 troponin 0.768, BNP 371. UA unremarkable. Patient noted to be flu negative, RSV negative and COVID-negative in ED. Chest x-ray in ED positive for significant left base pneumonia, CTA was negative for pulmonary artery emboli, mild heart failure and moderate left pleural fluid. In ED patient received 15 mg IV push of Dilt and was started on diltiazem drip, given 40 mEq of potassium, 2 g mag, 1 L bolus NaCl and IV ceftriaxone. Medicine was consulted and pt was admitted to floors. Patient had cocci serologies tested in which patient tested positive for IgM cocci. Patient was then started on Diflucan on the floors and patient will need to complete another course of treatment for it. Patient was seen by IR for potential thoracentesis, however it was on amendable to drainage. Cardiology was consulted for further workup of A-fib. Patient had echocardiogram done which showed normal left ventricular function, estimated ejection fraction of 25 to 30%, severe decreased left ventricular function, diastolic dysfunction but cannot be graded due to A-fib with right ventricle systolic dysfunction, RVSP estimated to be 37 mmHg with mild AV sclerosis. After Dilt drip was done, patient was then put on Amio 200 mg twice daily after Amio drip was finished as patient was put on it after Dilt drip was done. Patient was also added with metoprolol XL and was titrated each day. There was concern for patient with dysphagia and metoprolol XL efficacy goes down with crush tablets, so there was consideration for switching to metoprolol to tartrate. We were giving patient up to 200 mg of metoprolol XL. Upon discharge we do recommend patient to start metoprolol tartrate 75 mg every 8 hours, continue Amio 200 mg twice a day by mouth and to continue Eliquis 2.5 mg twice a day by mouth. Patient recommended to follow-up with PCP and cardiology. Patient will need to complete 7 additional weeks of Diflucan therapy for 100 mg for the next 49 days. Patient was also noted to have a skin lesion in the right upper eyelid that appears to be cancer possibly squamous cell carcinoma. This lesion is likely requiring excision rather than biopsy and we will refer patient to [facility] dermatology for further evaluation. Patient came in and found to have 2 or more SIRS criteria and was evaluated for sepsis. However, based upon further work- up, sepsis was ruled out. If you don't have a PCP, please follow up with me Dr. Lin, or any one of my colleagues (My schedule will be AM) [facility], [address] [place] [id number]. Otherwise, follow up with your PCP within 1 week Follow up with Dr. Jeter, collar tailor, within one week upon D/[place] [id number]. Call to make an appointment. Take your medicines as prescribed We recommend to take metoprolol tartrate 75 mg every 8 hours Tale Amio 200 mg twice a day by mouth Take Eliquis 2.5 mg twice a day by mouth Take fluconazole for 400 mg by mouth for 49 days Take medicines as prescribed Follow-up with [facility] dermatology located [address] [place] [id number]. Call for appointment for dermatology evaluation for skin lesion #Acute hypoxic respiratory failure, resolved #Sepsis secondary to pneumonia, SIRS +3/4, leukocytosis, ruled out #CAP versus HCAP #Left-sided pleural effusion #Coccidioides IgM positive #Atrial fibrillation with RVR #History of HFrEF with systolic and diastolic function, EF 25 to 30% #NSTEMI type I versus type II, demand ischemia, resolved #History of hypertension #Polycythemia, resolved #Thrombocytosis, resolved #Mild transaminitis, resolved #Failure to thrive #History of FARTUN #Skin lesion, right sided, ? Squamous cell carcinoma Patient seen and care discussed with my senior resident, Dr. Wright, and my attending physician, Dr. Brianna Lin, PGY-1 Time Spent with Patient Time attestation: Total time spent providing and/or coordinating discharge services: Time spent: Greater than 30 minutes Exam Vital Signs Temp Pulse Resp BP Pulse Ox O2 Del Method O2 Flow Rate 97.6 F 115 H 19 112/84 92 L Room Air 4 07/31/24 08:00 07/31/24 10:04 07/31/24 08:00 07/31/24 10:04 07/31/24 08:00 07/31/24 08:00 07/29/24 16:00 Narrative Exam Limited physical exam as patient does not want to be examined General: AAOx1, elderly lady might have dementia, redish hair, elderly, frail, responsive and alert today HEENT: Dry mucous membranes, conjunctiva clear, EOMI, PERRLA, poor dentition, large lesions seen in corner of right eyebrow resembling squamous cell carcinoma Cardiovascular: S1, S2, radial pulses +2 bilat, tachycardia, irregularly irregular Pulmonary: Difficulty appreciating breath sounds GI: No tenderness to light or deep palpitation, no guarding, rigidity, rebound tenderness or distension Extremities: No presence of trace or pitting edema in lower extremities bilaterally, dorsalis pedis pulses +2 bilaterally Neuro: AAOx1, no focal motor or sensory deficits in the UE or LE bilat Psych: Not very cooperative Discharge Plan Plan Patient Disposition: Xfer Skilled Nsg Fac (SNF) Disposition Comment: [facility] Patient condition on transfer: Stable Care Plan Goals: If you don't have a PCP, please follow up with me Dr. Lin, or any one of my colleagues (My schedule will be AM) [facility], [address] [place] [address]. Otherwise, follow up with your PCP within 1 week Follow up with Dr. Jeter, collar tailor, within one week upon D/[place] [id number]. Call to make an appointment. Take your medicines as prescribed We recommend to take metoprolol tartrate 75 mg every 8 hours Tale Amio 200 mg twice a day by mouth Take Eliquis 2.5 mg twice a day by mouth Take fluconazole for 400 mg by mouth for 49 days Take medicines as prescribed Follow-up with [facility] dermatology located [address] [place] [id number]. Call for appointment for dermatology evaluation for skin lesion Prescriptions/Referrals Prescriptions/Med Rec: New metoprolol tartrate 75 mg tablet 75 mg PO Q8HR 30 Days Qty: 90 0RF Eliquis 2.5 mg tablet 2.5 mg PO BID 30 Days Qty: 60 0RF amiodarone 200 mg tablet 200 mg PO BID 30 Days Qty: 60 0RF fluconazole 200 mg tablet 400 mg PO QDAY 49 Days Qty: 98 0RF buspirone 5 mg Tablet 15 mg PO BID Qty: 0 0RF atorvastatin 20 mg Tablet 40 mg PO HS Qty: 0 0RF aspirin [Children's Aspirin] 81 mg Tablet,Chewable 81 mg PO QDAY Qty: 0 0RF mirtazapine 15 mg Tablet 15 mg PO QDAY Qty: 0 0RF No Action amlodipine 5 mg tablet 5 mg PO QDAY Qty: 30 0RF senna 8.6 mg capsule 8.6 mg PO BID PRN (Reason: constipation) Qty: 60 0RF Referrals: Liliya Hilario MD [Primary Care Provider] - Patient/Caregiver Discharge Instructions Education Materials: Pleural Effusion, AFL/Afib Print Language: Mosotho Stand Alone Forms: Jasmin Award Info., Patient Portal Info Letter Discharge Order Discharge Orders: Discharge (Routine); Ordered 07/31/24 Ordered By: Adelita Lin Quality Discharge Quality Measures VTE prophylaxis (Eliquis ) Attestestation MD Attestation I reviewed labs, imaging, EKG, home medications and prior available records. Face to face evaluation was performed by me. I have personally examined the patient and discussed assessment and plan with the IM team. I reviewed the resident note and agree with the plan with exceptions as below. Acute hypoxic respiratory failure: In the setting of left lower lobe pneumonia. Cocci pneumonia is positive. Started ceftriaxone/doxycycline. Started fluconazole Left pleural effusion: Consult IR for pleurocentesis given the possible ass ociated pneumonia: Insufficient fluids for drainage Atrial fibrillation with rapid ventricular response: Rate is better controlled. Transitioned to p.o. amio. Discussed with cardiology: Changed metoprolol to 75 mg every 8 hours. Ordered echocardiogram that showed severely reduced EF of 25 to 30%. Outpatient follow-up with cardiology. No lisinopril or Entresto in setting of acute hypotension Non-STEMI: Likely in the setting of hypoxia and A-fib with RVR. Troponin peaked. Continue aspirin and atorvastatin. Debility: She will go back to [facility] Skin lesion: Possible squamous cell carcinoma. Will need biopsy/surgery but we cannot perform at our Medical Center. Close outpatient follow-up. Time spent is 40 minutes. More than 50% of the time was spent on patient education and coordination of care.
--- NOTE | 2024-07-31 15:21 | PC.SS ---
Follow up note: Patient has d/c orders for today. SS scheduled transport through [facility] for filler picker at 4p.m. Updated nursing. Attempted to contact patient's sister. No response. Patient is a parts counterman resident at facility
== END 2024-07-31 17:07 | disposition skilled nursing facility (03) | DRG 193 ==
LOC: SERX 07-24 04:24 → SERHOLD 07-24 05:33 → S2NX 07-24 11:49
PROVIDERS: Nurse Practitioner Family; Admitting Provider Student in an Organized Health Care Education/Training Program; Emergency Provider Student in an Organized Health Care Education/Training Program; PCP Hospitalist; Visit Provider Student in an Organized Health Care Education/Training Program
DX: J18.9 Pneumonia, unspecified organism (principal); J96.01 Acute respiratory failure with hypoxia; I50.42 Chronic combined systolic (congestive) and diastolic (congestive) heart failure; Z68.1 Body mass index [BMI] 19.9 or less, adult; J91.8 Pleural effusion in other conditions classified elsewhere; K21.9 Gastro-esophageal reflux disease without esophagitis; I48.91 Unspecified atrial fibrillation; Y95 Nosocomial condition; I11.0 Hypertensive heart disease with heart failure; R73.9 Hyperglycemia, unspecified; R74.01 Elevation of levels of liver transaminase levels; F41.9 Anxiety disorder, unspecified; D75.1 Secondary polycythemia; D75.839 Thrombocytosis, unspecified; R13.10 Dysphagia, unspecified; L98.9 Disorder of the skin and subcutaneous tissue, unspecified; Z11.52 Encounter for screening for COVID-19; I35.8 Other nonrheumatic aortic valve disorders; I95.9 Hypotension, unspecified; F10.10 Alcohol abuse, uncomplicated; Z79.899 Other long term (current) drug therapy; R53.81 Other malaise; R62.7 Adult failure to thrive; Z87.891 Personal history of nicotine dependence; Z87.19 Personal history of other diseases of the digestive system; Z88.8 Allergy status to other drugs, medicaments and biological substances
CPT/HCPCS: 36415; 71045; 71275; 76999; 80053; 80061; 81001; 83036; 83735; 83880; 84100; 84145; 84439; 84443; 84484; 85025; 85610; 85730; 86635; 87040; 87081; 87400; 87634; 87811; 89220; 92526; 92610; 93005; 93306; 94640; 96360; 96365; 96366; 96368; 96372; 96375; 97161; 99291; A4649; A9270; J0283; J0295; J0696; J1450; J1643; J2470; J2543; J3370; J3475; J3490; J7030; J7050; Q9967

== ENCOUNTER 2024-08-03 15:34 | Emergency (ER) | payer MEDICARE, MEDICAID, SELFPAY ==
[2024-08-03] VITALS (7 sets, daily range): BP systolic 102–131; BP diastolic 74–88; PULSE 134–156; RESP 17–30; TEMP 36.2–36.5; O2SAT 92–95; BMI 27.1
--- NOTE | 2024-08-03 16:04 | EKG_ITS ---
[facility] Test Date: 2024-08-03 Pat Name: AZAR MONTERO Department: Room: - Gender: Female Clinic Lpn: : 1945 Requested By: Sena Sabillon Order Number: [id number] Reading MD: Sena Sabillon Measurements Intervals [place] Rate: 146 P: [place]: QRS: 52 QRSD: 80 T: -61 QT: 304 QTc: 475 Interpretive Statements ATRIAL FIBRILLATION WITH RAPID VENTRICULAR RESPONSE LOW QRS VOLTAGE IN EXTREMITY LEADS [QRS DEFLECTION < 0.5 mV IN LIMB LEADS] NONSPECIFIC ST & T-WAVE ABNORMALITY Compared to ECG 07/30/2024 10:10:50 Ventricular premature complex(es) no longer present Aberrant conduction of supraventricular beat(s) no longer present Myocardial infarct finding no longer present Possible ischemia no longer present T-wave abnormality still present /store/S0/[id number].pdf
--- NOTE | 2024-08-03 16:04 | XR_ITS ---
Examination: AP chest single view Technique one AP portable upright chest single view Exam date and time: August 03, 2024 1641 hrs. Comparison July 23, 2024 Indications: Sepsis Findings: Moderate heart failure Moderate enlargement cardiac contour Prominent vascular congestion with perihilar edema Left lung pneumonia with large left pleural effusion Impression: Moderate heart failure Significant left lung pneumonia with large left pleural effusion
--- NOTE | 2024-08-03 16:05 | XR_ITS ---
Examination: CT brain head without contrast. 2-D sagittal coronal reconstructions Date and time of exam:August 03, 2024 1719 hrs. Indications: Onset altered mental status today CTDI: vol (mGy):47.5 DLP: (mGycm):1077 Technique: Multiple CT axial sections of the brain have been obtained, 5 mm slice thickness. Contrast has not been administered. 2-D sagittal, coronal reconstructions have been obtained Low dose protocols were performed. One or more of the following dose reduction techniques were used; automated exposure control, adjustment of the mA and/or KV according to patient size, use of iterative reconstruction technique. Findings: No significant ventricular enlargement. Encephalomalacia right frontal lobe left parietal lobe Acute subacute infarct in the posterior right temporal lobe axial image 25, with small areas of hemorrhagic transformation No mass effect or midline shift Basal cisterns are not remarkable. Fourth ventricle is midline. Cranial vault intact. Impression: Acute subacute infarct in the posterior right temporal lobe, axial image 25, with small areas of hemorrhagic transformation Recommend brain MRI MRA without contrast, stroke protocol, follow-up
--- NOTE | 2024-08-03 16:05 | PD.EDAMS ---
Altered Mental Status RME/HPI General Chief Complaint: Altered Mental Status Stated Complaint: ALTERED Time Seen by Provider: 08/03/24 16:03 Arrival date/time: 08/03/24 15:34 RME / HPI RME / HPI narrative: 79-year-old female patient with significant history of chronic A-fib, on Eliquis, hypertension, dementia, was brought in by EMS for evaluation regarding worsening altered mental status. Patient is having worsening altered mental status for the last 2 weeks, today was noted to be getting worse, today was also noted to have worsening cough. Shortness of breath. When the EMS arrived patient was satting 89% on room air. Patient is having a GCS of 13 right now. Related Data Previous Rx's ?Medication ?Instructions ?Recorded amlodipine 5 mg tablet 5 mg PO QDAY #30 tabs 08/18/23 sennosides 8.6 mg capsule (senna) 8.6 mg PO BID PRN constipation #60 08/18/23 caps amiodarone 200 mg tablet 200 mg PO BID 30 days #60 tabs 07/31/24 apixaban 2.5 mg tablet (Eliquis) 2.5 mg PO BID 30 days #60 tabs 07/31/24 aspirin 81 mg chewable tablet 81 mg PO QDAY #0 tabs 07/31/24 (Children's Aspirin) atorvastatin 20 mg tablet 40 mg (2 x 20 mg) PO HS #0 tabs 07/31/24 buspirone 5 mg tablet 15 mg (3 x 5 mg) PO BID #0 tabs 07/31/24 fluconazole 200 mg tablet 400 mg (2 x 200 mg) PO QDAY 49 07/31/24 days #98 tabs metoprolol tartrate 75 mg tablet 75 mg PO Q8HR 30 days #90 tabs 07/31/24 mirtazapine 15 mg tablet 15 mg PO QDAY #0 tabs 07/31/24 Allergies Allergy/AdvReac Type Severity Reaction Status Date / Time chlorpromazine Allergy Mild SLURRED Verified 07/24/24 18:10 SPEECH Review of Systems Review of Systems Narrative Review of Systems: Review of system reviewed and within normal limits except mentioned in HPI ED Exam Narrative Physical exam: VITAL SIGNS: Reviewed. GENERAL APPEARANCE: Alert and oriented x 2, does not follows commands, no acute distress, HEAD AND FACE: Non-traumatic. ENT: PERRL, pink conjunctivitis, eyelid no trauma, Mucous membrane moist. NECK: Supple, nontender, no nuchal rigidity. CHEST: No tenderness, no crepitus, no paradoxical movement, no retractions. LUNGS: Clear, well ventilated, symmetric, no rales, no wheezing, no ronchi, no stridor, good breath sounds bilaterally. HEART: Regular rate, regular rhythm, no murmur, no gallops. ABDOMEN: Soft, positive bowel sounds, nondistended, no guarding, nontender, no rebound, no masses, RECTAL: Deferred. GENITAL: Deferred. NEUROLOGICAL: Gross motor function intact sensory function intact, Appropriate for age. MUSCULOSKELETAL: low back nontender, full range of motion. EXTREMITIES: Nontender, full range of motion. SKIN: Color pink, dry, no rash, no lacerations, no abrasions, no contusions. LYMPHATICS: Deferred. Course Quality Measures none Orders Category Date Time Status Co Chairman STAT Care 08/03/24 16:04 Active Continuous Pulse Oximetry STAT Care 08/03/24 16:04 Completed EKG (ED ONLY) *Do not use* NOW Care 08/03/24 16:04 Completed Peres [Urinary Catheter] QS Care 08/03/24 18:48 Active Insert IV NOW Care 08/03/24 16:04 Active NPO STAT Care 08/03/24 16:04 Active Strict Intake and Output Routine Care 08/03/24 16:[address] head/brain wo con Stat Exams 08/03/24 16:05 Completed EKG (ED Only) Stat Exams 08/03/24 16:04 Draft XR chest 1V SEPSIS PROTOCOL Stat Exams 08/03/24 16:04 Completed B-Type Natriuretic Peptide Stat Lab 08/03/24 16:27 Completed Blood Culture (Lab) Stat Lab 08/03/24 16:27 Received CBC Stat Lab 08/03/24 16:27 Completed Comprehensive Metabolic Panel Stat Lab 08/03/24 16:27 Completed LDH (Lactate Dehydrogenase) Stat Lab 08/03/24 16:27 Completed Lactate (Lactic Acid) Stat Lab 08/03/24 16:27 Completed Lipase Stat Lab 08/03/24 16:27 Completed Magnesium Stat Lab 08/03/24 16:27 Completed Partial Thromboplastin Time Stat Lab 08/03/24 16:27 Completed Phosphorous Stat Lab 08/03/24 16:27 Completed Procalcitonin Stat Lab 08/03/24 16:27 Completed Prothrombin Time with INR Stat Lab 08/03/24 16:27 Completed Troponin I Stat Lab 08/03/24 16:27 Completed Urinalysis Stat Lab 08/03/24 18:30 Completed Urine Culture Stat Lab 08/03/24 18:30 Received [id number] [Rocephin] 1,000 mg Med 08/03/24 19:21 Discontinued Sodium Chloride 0.9% [Ns] 50 ml IV X1 Oxygen Delivery NOW RT 08/03/24 16:04 Active Vital Signs Vital signs: Vital Signs Temperature 97.4 F 08/03/24 15:42 Pulse Rate 156 H 08/03/24 15:42 Respiratory Rate 23 H 08/03/24 15:42 Blood Pressure 113/75 08/03/24 15:42 Pulse Oximetry (%) 92 L 08/03/24 15:42 Oxygen Delivery Method Nasal Cannula 08/03/24 15:42 Oxygen Flow Rate 3 08/03/24 15:42 Altered Mental Status MDM Narrative MDM Narrative:: 79-year-old female patient with significant history of chronic A-fib, on Eliquis, hypertension, dementia, was brought in by EMS for evaluation regarding worsening altered mental status. Patient is having worsening altered mental status for the last 2 weeks, today was noted to be getting worse, today was also noted to have worsening cough. Shortness of breath. When the EMS arrived patient was satting 89% on room air. Patient is having a GCS of 13 right now. Laboratory workup is significant for chest x-ray that showed large pleural effusion with superimposed pneumonia on the left CT scan of the head showed Acute subacute infarct in the posterior right temporal lobe, axial image 25, with small areas of hemorrhagic transformation Recommend brain MRI MRA without contrast, stroke protocol, follow-up Urinalysis negative for UTI. Patient was given ceftriaxone IV. Patient is to be transfer for neurosurgeon/neurology available. I spoke with neurologist,from [facility], who accepted the patient, accepting neurologist Dr. Ritchie Patient data External records reviewed:: None Clinical information provided by:: EMS Social determinants that could affect healthcare access:: none Patient has the following chronic illnesses:: Chronic A-fib, hypertension, dementia How is presenting disease/condition affected by chronic disease/condition?: exacerbated by Evaluation data The following diagnostics were reviewed and interpreted by me:: lab results, radiology exam(s) and EKG tracing(s) Lab and/or radiology exams considered but not ordered:: None Interpretation Summary: EKG showed chronic A-fib, ventricular rate of 146 bpm, no ST segment elevation depression noted. None Medications / Prescriptions Medications or Prescriptions considered but not ordered:: None Medication administrations:: Medication Administration History Discontinued Medications Ceftriaxone Sodium 1,000 mg/ (Sodium Chloride) 50 mls @ 100 mls/hr IV X1 ONE Stop: 08/03/24 19:50 Last Admin: 08/03/24 19:41 Dose: 100 mls/hr Documented By: RESHMA Ceftriaxone IV Consultations Consultation(s) initiated? (list below): Yes Consultation #1 (Physician, Specialty, Details): [facility] jernigan neurology/ neurosurgeon Diagnosis Differential diagnosis altered mental status: altered mental status, subarachnoid hemorrhage and other (Acute temporal infarct with hemorrhage, pneumonia with large pleural effusion) Most likely diagnosis given after review of the tests above:: Acute temporal infarct with hemorrhage, pneumonia with large pleural effusion Admission Indicated Admission indicated?: indicated Explain why admission is indicated or not indicated:: Transfer Admission Request Was there a request for admission?: No Disposition Plan Disposition Plan: Transfer Discharge Plan Prescriptions/Referrals Prescriptions/Med Rec: No Action amlodipine 5 mg tablet 5 mg PO QDAY Qty: 30 0RF senna 8.6 mg capsule 8.6 mg PO BID PRN (Reason: constipation) Qty: 60 0RF metoprolol tartrate 75 mg tablet 75 mg PO Q8HR 30 Days Qty: 90 0RF Eliquis 2.5 mg tablet 2.5 mg PO BID 30 Days Qty: 60 0RF amiodarone 200 mg tablet 200 mg PO BID 30 Days Qty: 60 0RF fluconazole 200 mg tablet 400 mg PO QDAY 49 Days Qty: 98 0RF buspirone 5 mg Tablet 15 mg PO BID Qty: 0 0RF atorvastatin 20 mg Tablet 40 mg PO HS Qty: 0 0RF aspirin [Children's Aspirin] 81 mg Tablet,Chewable 81 mg PO QDAY Qty: 0 0RF mirtazapine 15 mg Tablet 15 mg PO QDAY Qty: 0 0RF Problem List Clinical Impression: Acute CVA (cerebrovascular accident), Pneumonia, Pleural effusion Patient/Caregiver Discharge Instructions Print Language: Beninese
[2024-08-03 16:37] LABS: Lactate (Lactic Acid) 1.7 mMol/L (0.4-2.0)
[2024-08-03 16:52] LABS: Basophils # (Auto) 0.1 Thou/mm3 (0.0-0.2); Basophils % (Auto) 1 % (0-2.5); Eosinophils # (Auto) 0.1 Thou/mm3 (0.0-0.5); Eosinophils % (Auto) 1 % (0-10); Hematocrit 44.1 % (36.0-46.0); Hemoglobin 14.6 g/dL (12.0-16.0); Immature Granulocytes % (Auto) 1 % (0-0); Immature Granulocytes Auto 0.08 Thou/mm3 (0.00-0.00); Lymphocytes # (Auto) 1.2 Thou/mm3 (1.0-4.8); Lymphocytes % (Auto) 13 % (10-50); Mean Corpuscular HGB Conc 33.1 g/dl (31.0-37.0); Mean Corpuscular Hemoglobin 29.6 pg (25.0-35.0); Mean Corpuscular Volume 90 fL (80-100); Monocytes # (Auto) 0.7 Thou/mm3 (0.0-0.8); Monocytes % (Auto) 7 % (0-12); Neutrophils # (Auto) 7.1 Thou/mm3 (1.8-7.7); Neutrophils % (Auto) 77 % (37-80); Nucleated Red Blood Cell % 0 /100 WBC (0); Platelet Count 353 Thou/mm3 (140-440); RDW Standard Deviation 49.1 fL (36.4-46.3); Red Blood Count 4.93 Miln/mm3 (4.00-5.20); White Blood Count 9.3 Thou/mm3 (3.6-11.0)
--- NOTE | 2024-08-03 17:00 | PC.NURSE ---
pt brought in by ems with c/o altered mental status x 2 weeks with increased confusion today and sob. per ems pt's 02 sats 90% RA. pt is a-fib with rvr on monitoring manager. pt answering some questions appropriately at this time. pt's gcs 13. provider at bedside
[2024-08-03 17:33] LABS: Alanine Aminotransferase 24 U/L (10-49); Albumin, Serum 3.7 gm/dL (3.4-4.8); Albumin/Globulin Ratio 1.4 (1.2-2.2); Alkaline Phosphatase 243 U/L (46-116); Anion Gap 11 (7-16); Aspartate Amino Transferase 36 U/L (0-34); BUN/Creatinine Ratio 13 Ratio (12-20); Bilirubin,Total 0.6 mg/dL (0.3-1.2); Blood Urea Nitrogen 9 mg/dL (9-23); Calcium 9.2 mg/dL (8.3-10.6); Calcium (Corrected) 9.4 mg/dL (8.5-10.1); Carbon Dioxide 22.1 mMol/L (20.0-31.0); Chloride 111 mMol/L (98-107); Creatinine (Component) 0.7 mg/dL (0.6-1.3); Estimated Creatinine Clearance 51.1 mL/min (>60); Globulin 2.6 gm/dL (2.3-3.5); Glucose 93 mg/dL (74-106); LDH (Lactate Dehydrogenase) 275 U/L (120-246); Lipase 27 U/L (12-53); Osmolality,Calculated 285 (275-295); Phosphorous 2.6 mg/dL (2.4-5.1); Procalcitonin 0.07 ng/ml (0.0-0.49); Sodium 144 mMol/L (136-145); Total Protein 6.3 gm/dL (5.7-8.2); eGFR > 60 See Note
[2024-08-03 17:35] LABS: Troponin I 0.243 ng/mL (0.0-0.045)
[2024-08-03 18:11] LABS: INR 1.2 (0.9-1.3); Partial Thromboplastin Time 24.6 Seconds (22.0-36.0)
--- NOTE | 2024-08-03 18:15 | PC.NURSE ---
unable to complete NIH due to pt not following commands during assessment
[2024-08-03 18:41] LABS: Collection Type, Urine Clean Catch; RBC,Urine 0 /hpf (0-3)
--- NOTE | 2024-08-03 18:55 | PC.CM ---
I received a call from [facility] and she states patient needs to be transferred for brain bleed. she stated the ED charge nurse will take over but she would like me to fax over information to Mariaelena. I faxed over the information.
[2024-08-03 19:09] LABS: Bacteria,Urine Rare; Bilirubin,Urine Negative (Negative); Blood,Urine Negative (Negative); Clarity,Urine Clear (Clear/Hazy); Color,Urine Yellow (Lt Yel-Yel); Glucose, Urine Negative (Negative); Hyaline Casts,Urine < 1 /hpf (0-1); Ketones,Urine 1+ (Negative); Leukocyte Esterase,Urine Positive (Negative); Nitrite,Urine Negative (Negative); PH,Urine 5.5 (5.0-7.0); Protein,Urine Negative (Neg - Trace); Specific Gravity,Urine 1.018 (1.001-1.035); Squamous Epithelial Cell,Urine < 1 /hpf (0-5); Urobilinogen,Urine Negative mg/dL (0.0-1.0); WBC,Urine 7 /hpf (0-5)
[2024-08-03 19:11] LABS: B-Type Natriuretic Peptide 918 pg/mL (0-100)
--- NOTE | 2024-08-03 20:06 | PC.NURSE ---
[facility] [address] ACCEPTED ER TO ER DR ARGUETA, #[phone]
--- NOTE | 2024-08-03 21:01 | PC.NURSE ---
REPORT CALLED AND GIVEN TO NURSE LY AT [facility].
== END 2024-08-03 20:55 | disposition short-term general hospital (02) ==
PROVIDERS: Nurse Practitioner Family; Emergency Provider Emergency Medicine
DX: I62.9 Nontraumatic intracranial hemorrhage, unspecified (principal); J18.9 Pneumonia, unspecified organism; J90 Pleural effusion, not elsewhere classified; I10 Essential (primary) hypertension; I48.20 Chronic atrial fibrillation, unspecified; F03.90 Unspecified dementia, unspecified severity, without behavioral disturbance, psychotic disturbance, mood disturbance, and anxiety; Z79.01 Long term (current) use of anticoagulants; R40.2412 Glasgow coma scale score 13-15, at arrival to emergency department
CPT/HCPCS: 51702; 36415; 70450; 71045; 80053; 81001; 83605; 83615; 83690; 83735; 83880; 84100; 84145; 84484; 85025; 85610; 85730; 87040; 87086; 93005; 96365; 99285; J0696